=== PATIENT | male | born 1940 | race Caucasian/White ===

== ENCOUNTER → 2016-09-11 11:30 | Day surgery (SDC) | payer MEDICARE ==
[~2016-09-11 11:30] MED LIST: Buffered Lidocaine 1% SYRIN* 3 ML/SYR SYRINGE INTRADERM ONE; Bupivacaine 0.5% W/EPI SDV* 30 ML VIAL ONE; Dexamethasone IV* 4 MG/ML 1 ML (4 MG) ONE; Famotidine IV* 10 MG/ML 2 ML (20 mg) IV ONE; Famotidine IV* 10 MG/ML 2 ML (20 mg) ONE; HYDROmorphone* 1 MG/ML 1 ML SYR IV PRN; KETAMINE HCL* 50 MG/ML 10 ML VIAL ONE; Ketorolac INJ* 30 MG/ML 1 ML VIAL ONE; Lidocaine 1% INJ* 10 MG/ML 30 ML SDV ONE; Lidocaine 2% PF* 5 ML VIAL ONE; Metoclopramide TAB* 10 MG ONE; Metoclopramide TAB* 10 MG PO ONE; Midazolam* 1 MG/ML 5 ML VIAL (5 MG) ONE; Ondansetron INJ* 2 MG/ML VIAL IV PRN; Ondansetron INJ* 2 MG/ML VIAL ONE; Propofol* 10 MG/ML 20 ML BTL IV PUSH ONE; ceFAZolin 2 GM PREMIX(*) 2 GM/50 ML BAG IVPB ONE; fentaNYL* 50 MCG/ML 2 ML VIAL (100 MCG VIAL) IV PRN; fentaNYL* 50 MCG/ML 2 ML VIAL (100 MCG VIAL) ONE; oxyCODONE/Acetamin 5/325 MG* TAB PO PRN
--- NOTE | 2016-09-11 17:07 | SURGPN ---
Brief Operative Note - Surgery Procedures: Procedures Pre-OP Diagnoses: Left inguinal hernia Post-op Diagnosis: same Procedure: open Left inguinal hernia repair with mesh Surgeon: Dev Asst: Marion Rojasthesia: Michelle Temple EBL: minimal IVF: 1400cc crystalloid Specimen: none Drains: none
[2016-09-11 18:41] VITALS: BP 137/77
== END | disposition home or self-care (01) ==
LOC: OR 11:30
PROVIDERS: ATTEND Surgery
DX: K40.90 Unilateral inguinal hernia, without obstruction or gangrene, not specified as recurrent (principal); Z87.891 Personal history of nicotine dependence; Z85.038 Personal history of other malignant neoplasm of large intestine
CPT/HCPCS: 93005; A9270-GY; C1781; J0690; J1100; J1885; J2001; J2250; J2405; J2704; J3010

== ENCOUNTER 2019-08-15 08:39 | Inpatient (IN) | payer MEDICARE ==
[2019-08-15] MEDS ORDERED: NS 0.9% 1000 ML** 1,000 ML IV ONE (09:03)
[2019-08-15] MEDS ORDERED: Ondansetron INJ* 2 MG/ML VIAL IV ONE (09:03)
--- NOTE | 2019-08-15 09:07 | ED ---
GI/ HPI - HPI Summary HPI Summary: 78 y/o male presented to [facility] for what he believes was food poisoning 10 days ago. Pt experienced N/V/D, chills, and bloating, but no fever. Pt later developed constipation. Last episode of vomiting was 9 days ago. Pt noted sticky stool this morning, his first BM in 5 days. 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 He notes his most recent colonoscopy was successful and showed no signs of cx. Pt does not drink alcohol or use cigarettes. Medications reviewed. Allergies noted. Home Medications Medication Instructions Recorded Confirmed Type NK [No Home Medications Reported] 03/27/12 09/11/16 History - History of Current Complaint Chief Complaint: EDAbdPain Time Seen by Provider: 08/15/19 08:49 Stated Complaint: CONSTIPATION PER PT Hx Obtained From: Patient Onset/Duration: Started Weeks Ago, Still Present Timing: Lasting Weeks Current Severity: Mild Pain Intensity: 2 Associated Signs and Symptoms: Positive: Nausea, Vomiting, Constipation, Diarrhea, Chills, Other: - sticky stool, bloating. Negative: Fever Aggravating Factor(s): Nothing Alleviating Factor(s): Nothing - Allergy/Home Medications Allergies/Adverse Reactions: Allergies Allergy/AdvReac Type Severity Reaction Status Date / Time No Known Allergies Allergy Verified 08/15/19 08:47 Home Medications: Home Medications NK [No Home Medications Reported] 03/27/12 [History Confirmed 09/11/16] PMH/Surg Hx/FS Hx/Imm Hx Musculoskeletal History: Reports: Hx Arthritis - bilat hands Sensory History: Reports: Hx Contacts or Glasses - for driving Denies: Hx Hearing Aid - has a hearing loss in left ear Opthamlomology History: Reports: Hx Contacts or Glasses - for driving - Cancer History Cancer Type, Location and Year: colol/rectal cancer - Surgical History Surgery Procedure, Year, and Place: surgery for colon/rectal ca 1994. Bladder removed, urostomy bag. colostomy bag Hx Anesthesia Reactions: No Infectious Disease History: No Infectious Disease History: Denies: History Other Infectious Disease, Traveled Outside the [place] in Last 30 Days - Family History Known Family History: Positive: Other - cancer Negative: Hypertension, Diabetes - Social History Alcohol Use: None Substance Use Type: Reports: None Smoking Status (MU): Light Every Day Tobacco Smoker Review of Systems Positive: Chills. Negative: Fever Positive: Vomiting, Diarrhea, Nausea, Other - constipation, bloating All Other Systems Reviewed And Are Negative: Yes Physical Exam - Summary Physical Exam Summary: Constitutional: Well-developed, Well-nourished, Alert. (-) Distressed Skin: Warm, Dry HENT: Normocephalic; Atraumatic Eyes: Conjunctiva normal Neck: Musculoskeletal ROM normal neck. (-) JVD, (-) Stridor, (-) Tracheal deviation Cardio: Rhythm regular, rate normal, Heart sounds normal; Intact distal pulses; Radial pulses are 2+ and symmetric. (-) Murmur Pulmonary/Chest wall: Effort normal. (-) Respiratory distress, (-) Wheezes, (-) Rales Abd: Soft, (-) tenderness, (-) Distension, (-) Guarding, (-) Rebound. Urostomy and ostomy bags present. Ostomy bag with no output. Musculoskeletal: (-) Edema, Good pulses bilaterally in radius, No calf tenderness, No venous cords, No pain with dorsiflexion of foot. Lymph: (-) Cervical adenopathy Neuro: Alert, Oriented x3 Psych: Mood and affect Normal Triage Information Reviewed: Yes Vital Signs On Initial Exam: Initial Vitals Temp Pulse Resp BP Pulse Ox 98.2 F 76 18 125/80 99 08/15/19 08:44 08/15/19 08:44 08/15/19 08:44 08/15/19 08:44 08/15/19 08:44 Vital Signs Reviewed: Yes Procedures - Sedation Patient Received Moderate/Deep Sedation with Procedure: No Diagnostics - Vital Signs Vital Signs Temp Pulse Resp BP Pulse Ox 08/15/19 08:44 98.2 F 76 18 125/80 99 - Laboratory Result Diagrams: 08/15/19 08:56 08/15/19 08:56 Lab Statement: Any lab studies that have been ordered have been reviewed, and results considered in the medical decision making process. - CT abd/pel CT Interpretation Completed By: Radiologist Summary of CT Findings: IMPRESSION: 1. CT findings are consistent with mid to distal small bowel obstruction with the proximal. loops of small bowel measuring up to 4.2 cm in diameter and exhibiting air-fluid levels. 2. In the right lower lobe there is a subpleural 2 mm nodule adjacent to the fissure which. is most likely a small lymph node but a metastatic focus is not completely excluded. considering the patient's history of malignancy. 3. In the posterior spleen there is a 6 mm hypoattenuating focus that is not further. characterized on this CT examination. This was not seen on the 2003 CT examination. On a. nonemergent basis, further characterization can be made with splenic ultrasound. 4. Additional chronic, degenerative and iatrogenic findings described in the body the. report unlikely to BE related to the patient's imminent clinical problems. This report was reviewed by the ED physician LINETTE Course/Dx - Course Course Of Treatment: Patient is here with decreased ostomy output and nausea over the past 5 days. Patient did have some ostomy output this morning for the first time in 5 days. Patient blood performed which was grossly unremarkable. Patient a CT scan which showed a small bowel traction. Surgery was called and will evaluate the patient tomorrow. He was admitted to the hospitalist service - Diagnoses Provider Diagnoses: Small bowel obstruction - Physician Notifications Time Discussed With Above Provider: 12:31 Instructed by Provider To: Other - Pt case was discussed with Dr. Méndez, who will consult in the morning. The hospitalist will admit. Recommend an NG tube if pt is vomiting. Discharge ED - Sign-Out/Discharge Documenting (check all that apply): Patient Departure - Discharge Plan Condition: Fair Disposition: ADMITTED TO [facility] - Billing Disposition and Condition Condition: FAIR Disposition: Admitted to [facility] - Attestation Statements Document Initiated by Ninoska: Yes Documenting Scribe: Kayode Naranjo Provider For Whom Ninoska is Documenting (Include Credential): Chas Salomon MD Scribe Attestation: Kayode Armas, scribed for Chas Salomon MD on 08/15/19 at 1859. Scribe Documentation Reviewed: Yes Provider Attestation: The documentation as recorded by the Kayode eisenberg accurately reflects the service I personally performed and the decisions made by me, Chas Salomon MD Status of Scribe Document: Viewed
[2019-08-15 09:26] LABS: ABS Lymphocytes 0.4 10^3/ul (1.0-4.8); ABS Monocytes 0.7 10^3/ul (0-0.8); ABS Neutrophils 7.2 10^3/ul (1.5-7.7); Eosinophil % 0.4 %; Hematocrit 47 % (42-52); Lymphocyte % 5.3 %; Mean Corpuscular HGB Conc 35 g/dL (31-36); Mean Corpuscular Hemoglobin 30 pg (27-31); Mean Corpuscular Volume 88 fL (80-94); Mean Platelet Volume 6.9 fL (7.4-10.4); Platelet Count 359 10^3/uL (150-450); Red Blood Count 5.27 10^6 /uL (4.18-5.48); Red Cell Distribution Width 13 % (10-15); White Blood Count 8.4 10^3/uL (3.5-10.8)
[2019-08-15 09:27] LABS: Albumin 4.7 g/dL (3.2-5.2); Albumin/Globulin Ratio 1.5 (1-3); BUN/Creatinine Ratio 12.9 (8-20); Calcium 9.4 mg/dL (8.6-10.3); EGFR African American 105.5 (>60); EGFR Non-African American 87.2 (>60); Globulin 3.2 g/dL (2-4); Potassium 4.3 mmol/L (3.5-5.0); Total Bilirubin 1.1 mg/dL (0.2-1.0); Total Protein 7.9 g/dL (6.4-8.9)
[2019-08-15] MEDS ORDERED: Iodixanol* (CONTRAST) 320 MG/ML 100 ML SDV IV ONE (10:08)
[2019-08-15] MEDS ORDERED: Morphine INJ* 2 MG/ML 1 ML SYRINGE (TWO MG - NEW SYRINGE VERSION) IV PRN (14:03)
[2019-08-15] MEDS ORDERED: Ondansetron INJ* 2 MG/ML VIAL IV PRN (14:03)
[2019-08-15] MEDS: NS 0.9% 1000 ML** 1,000 ML IV SCH (16:13)
--- NOTE | 2019-08-15 17:14 | HP ---
CC: Dr. Mccann * HISTORY AND PHYSICAL: DATE OF ADMISSION: 08/15/19 PRIMARY CARE PROVIDER: Dr. Mccann. CHIEF COMPLAINT: Abdominal pain and no colostomy output. HISTORY OF PRESENT ILLNESS: Mr. Xavier is a 78-year-old male who underwent extensive surgery in the s in the colorectal cancer. He underwent colectomy with removal of the rectum, bladder, prostate, and appendix. At that time, he had a colostomy and urostomy created. The patient has also had left and right inguinal hernia repairs. Generally, he had been doing quite well and in his usual state of health up until approximately 9 days ago. He then began to develop diffuse abdominal discomfort, but more localized around the colostomy stoma. Five days ago, he noted that there was no output into his colostomy. This morning, he notes that there was a small amount of gas and a very small amount of stool in the colostomy bag. Due to the persistent abdominal discomfort and no output into the colostomy, the patient presented to the emergency room for evaluation. He states that he has had intermittent nausea, but has not vomited. He notes the chills in the emergency room today and his states that he was chilled at home last evening. PAST MEDICAL HISTORY: Colorectal carcinoma. PAST SURGICAL HISTORY: 1. Tonsillectomy. 2. Left inguinal hernia repair. 3. Colostomy. 4. Urostomy. 5. Right inguinal hernia. 6. Colectomy. 7. Prostate and bladder removal. MEDICATIONS: None. ALLERGIES: No known drug allergies. FAMILY HISTORY: Mom at the age of 68. She had breast cancer as well as lymphoma. Dad at the age of 78 of prostate cancer. SOCIAL HISTORY: The patient is a former smoker of 2 packs per week for approximately 10 years, quitting in 2012. He does not drink alcohol any longer. 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 He is . He has 3 children. His is his healthcare proxy. REVIEW OF SYSTEMS: The patient denies any fevers, chills. His appetite has been poor for the last 9 days. No chest pain. No edema. No cough. No shortness of breath. He has nausea and abdominal discomfort as above. He has a urostomy that has been putting out the normal amount of urine daily. No stroke symptoms. No sudden changes in vision. No dysphagia. No joint pains, muscle pains out of the ordinary. No rashes. No anxiety or depression. PHYSICAL EXAMINATION GENERAL: The patient is a well-developed elderly male seen sitting up in the bed, in no acute distress. VITAL SIGNS: Blood pressure 125/80, pulse 76, respirations 18, temp 98.2, O2 sat 99% on room air. HEENT: Pupils are equal. Extraocular muscles are intact. Oropharynx is clear , moist. The patient has poor dentition. There is no submandibular, cervical, or supraclavicular adenopathy. PULMONARY: Lungs are clear to auscultation bilaterally. CARDIAC: Normal S1 and S2. Regular rate and rhythm. I do not appreciate any murmurs. There is no lower extremity edema. ABDOMEN: Bowel sounds are present. Abdomen is soft, nontender, nondistended. The patient's colostomy is on the left side of the abdomen. It has liquid brown stool as well as a small amount of soft brown stool at the stoma site. The urostomy is in the right lower quadrant and has copious amounts of yellow urine. MUSCULOSKELETAL: There is no cyanosis or clubbing of the digits. There is full active range of motion of all 4 extremities. NEURO: Cranial nerves II through XII are grossly intact. Sensation is intact to light touch throughout. Strength is 5/5 and symmetric to both in the upper and lower extremities bilaterally. PSYCH: The patient is alert. He is oriented x3. Affect appears appropriate. SKIN: Warm and dry. There are no rashes. LABORATORY DATA/DIAGNOSTIC STUDIES: WBC 8.4, hemoglobin 16.0, hematocrit 47, platelets 359. Sodium 130, potassium 4.3, chloride 93, CO2 of 28, BUN 11, creatinine 0.85, glucose 100, calcium 9.4. Bilirubin 1.1, AST 21, ALT 16, alk phos 87. Albumin 4.7, lipase is 26. CT abdomen and pelvis. CT findings are consistent with mid to distal small bowel obstruction with a proximal loop of small bowel measuring up to 4.2 cm in diameter and exhibiting air-fluid levels. In the right lower lobe, there is a subpleural 2 mm nodule adjacent to the fissure which is most likely small lymph node, but a metastatic focus is not completely excluded considering the patient' s history of malignancy. In the posterior spleen, there is a 6 mm hypoattenuating focus that is not further characterized on the CT examination. This was not seen on the 2003 CT examination. On a nonemergent basis, further characterization can be made with splenic ultrasound. ASSESSMENT AND PLAN: Mr. Xavier is a 78-year-old male with no significant past medical history except for colorectal cancer for which he underwent extensive surgery including radical proctocolectomy, prostatectomy, and cystectomy with creation of urostomy and colostomy, who now presents to the emergency room with complaints of abdominal pain and no colostomy output for 5 days and is found to have a small bowel obstruction. 1. Small bowel obstruction. The patient had not realized that his colostomy had put out any material since being in the emergency room. This is a substantial increase from what he noted earlier today. I suspect the patient may be self- resolving his small bowel obstruction. The patient has not had any vomiting. He has had intermittent nausea. He will have p.r.n. Zofran. I am holding off on placing an NG tube at this time. Repeat abdominal x-ray will be obtained tomorrow. If there is improvement in his bowel obstruction, he will be started on a clear liquid diet. 2. Mild hyponatremia. The patient's sodium is slightly low at 130. He has not been taking in much to eat or drink recently. This is likely secondary to mild volume depletion. He is receiving normal saline to remain hydrated. We will get followup basic metabolic panel tomorrow. 3. DVT prophylaxis. According to the Adult Thrombosis Prophylaxis Risk Factor Assessment Guide, the patient has a total risk factor score of 6 making him high risk. Lovenox 40 mg subcutaneous daily will be utilized as DVT prophylaxis. 4. Code status is full. TIME SPENT: 55 minutes was spent admitting this patient. [id number]/[facility] #: [id number] SONAL
[2019-08-15] MEDS: Enoxaparin(*) 40 MG/0.4 ML SYR SUBCUT SCH (20:35)
[2019-08-16 07:13] LABS: BUN/Creatinine Ratio 22.9 (8-20); Calcium 7.9 mg/dL (8.6-10.3); EGFR Non-African American 109.1 (>60)
--- NOTE | 2019-08-16 09:00 | PN ---
Subjective Date of Service: 08/16/19 Interval History: Pt is feeling well. He continued to have liquid stool out in his colostomy all night long. He did have an "explosion" overnight. He denies any abdominal pain. He would like to have something to drink. He is thirsty. Objective Active Medications: Enoxaparin Sodium (Lovenox(*)) 40 mg SUBCUT Q24H [facility] Last Admin: 08/15/19 20:35 Dose: 40 mg Sodium Chloride (Ns 0.9% 1000 Ml) 1,000 mls @ 75 mls/hr IV PER RATE [facility] Last Admin: 08/15/19 16:13 Dose: 75 mls/hr Morphine Sulfate (Morphine Inj (Syringe))*) 2 mg IV Q4H PRN PRN Reason: PAIN - SEVERE Ondansetron HCl (Zofran Inj*) 4 mg IV Q6H PRN PRN Reason: NAUSEA Vital Signs - 8 hr 08/16/19 08/16/19 08/16/19 03:15 08:00 08:05 Temperature 98.1 F 98.3 F Pulse Rate 90 75 Respiratory 20 16 16 Rate Blood Pressure 130/66 106/50 (mmHg) O2 Sat by Pulse 100 98 Oximetry Oxygen Devices in Use Now: None Appearance: Elderly male sitting up in bed, NAD Eyes: No Scleral Icterus Ears/Nose/Mouth/Throat: Mucous Membranes Moist Respiratory: Symmetrical Chest Expansion and Respiratory Effort, Clear to Auscultation Cardiovascular: NL Sounds; No Murmurs; No JVD, RRR, No Edema Abdominal: NL Sounds; No Tenderness; No Distention, - - ostomy empty currently but reportedly there was 300ml of liquid stool in the bag Extremities: No Clubbing, Cyanosis Skin: No Nodules or Sclerosis Neurological: Alert and Oriented x 3 Result Diagrams: 08/15/19 08:56 08/16/19 06:44 Assess/Plan/Problems-Billing Mr Xavier is a 78 yo M who has a h/o colorectal carcinoma s/p proctocolectomy, cystectomy and prostatectomy who presented to the ER with c/o abdominal pain and no colostomy output for 5 days and was admitted for treatment of an SBO. - Patient Problems (1) SBO (small bowel obstruction) Current Visit: Yes Status: Acute Code(s): K56.609 - UNSP INTESTNL OBST, UNSP TO PARTIAL VERSUS COMPLETE OBST SNOMED Code(s): 918553166 Comment: The patient's colostomy started working while he was in the ER. He has continued to have output overnight and this AM. Will hold off on surgical evaluation currently. Give clear liquids now. Await KUB results. He may be able to be advanced to regular food later today and then home. (2) DVT prophylaxis Current Visit: Yes Status: Acute Code(s): Z29.9 - ENCOUNTER FOR PROPHYLACTIC MEASURES, UNSPECIFIED SNOMED Code(s): 156573569 Comment: farshad (3) Full code status Current Visit: Yes Status: Acute Code(s): Z78.9 - OTHER SPECIFIED HEALTH STATUS SNOMED Code(s): 500611164
--- NOTE | 2019-08-16 19:15 | CONS ---
CC: Dr. Felicia Mccann * SURGICAL CONSULT NOTE: DATE OF CONSULT: 08/16/19 ATTENDING SURGEON: Dr. Pepe Douglass. CHIEF COMPLAINT: Abdominal pain, vomiting, and decreased colostomy output. HISTORY OF PRESENT ILLNESS: This is a 78-year-old male who is status post extensive abdominal surgery in 1994 (see below), who has a permanent end colostomy and urostomy (ileal conduit). Beginning Friday of last week, he felt unwell with initial nausea and vomiting and then subsequently some diarrhea via his colostomy. He felt this was possible related to food poisoning. Over the next few days, symptoms waxed and waned with notable decrease in output from his colostomy. He attributed this to constipation and has been mostly drinking fluids, though has been trying some solid food intermittently. He describes discomfort in the abdomen primarily in the left side above and adjacent to his colostomy. At peak, his rated his pain as 6/10. At present, he states it is down to 1/10 and this is without any pain medication. He has not had any prior similar symptoms. He did have a clear liquid tray this morning, which he consumed completely and without any untoward effects. He states that since he came in last evening he has had liquid output from the colostomy that he estimates to be 400 to 500 cc. PAST MEDICAL HISTORY: Colorectal cancer (status post colectomy with end colostomy). The surgery also included prostatectomy and cystectomy with creation of ileal conduit for urostomy. He has no other significant active or past medical problems. PAST SURGICAL HISTORY: Surgeries, in addition to above, include tonsillectomy and bilateral inguinal hernia repairs. CURRENT MEDICATIONS: None. DRUG ALLERGIES: None. FAMILY HISTORY: Not repeated here, see admission history and physical. SOCIAL HISTORY: Not repeated here, see admission history and physical. REVIEW OF SYSTEMS: As per his admission history and physical with the addition of GI: He did undergo colonoscopy approximately 1 year ago, I believe with Dr. Herron and he states that that was a normal study. PHYSICAL EXAM: He's afebrile, most recent blood pressure 116/60, pulse 66, respirations 18, room air saturation 97%. General: Well-nourished, somewhat thin, but otherwise well-appearing male, in no acute distress. Skin: Warm and dry. No suspicious rashes or lesions. HEENT: Pupils are equal, round, and reactive. EOMs intact. No conjunctival pallor or scleral icterus. Oropharynx : A number of missing teeth. Remaining teeth in fair to good repair. No intraoral lesions. His mucous membranes are dry. Neck: No lymphadenopathy, thyromegaly, or masses. Heart: Regular rate and rhythm. No murmur appreciated. Lungs: Clear to auscultation. No rales or wheezes, though decreased breath sounds at both basses. Abdomen: Flat. Not particularly distended. Left-sided colostomy with relatively empty bag at the present time. Right-sided urostomy with clear sadia-colored urine. Well-healed lower midline incision. Bowel sounds are present and relatively normal in character. Abdomen is soft with mild tenderness along the left side. No palpable masses or organomegaly. No palpable inguinal hernias. Back and Extremities: No spinous process or CVA tenderness. Extremities: No edema. Neurological: Grossly intact. DIAGNOSTIC STUDIES/LAB DATA: Pertinent laboratory: White blood cell count 8400 , hemoglobin 16. Initial sodium was 130 with repeat this morning of 132, potassium is normal at 4.0. His other chemistries are essentially normal. CT scan yesterday of the abdomen and pelvis was personally reviewed. This was with limited oral contrast as well as IV contrast. Scan showed proximal dilated small bowel measuring up to 4.2 cm with air-fluid levels. The colon was relatively decompressed. Today's plain film showed a dilated small bowel loop on the left side measuring up to 5.7 cm in diameter, felt to be consistent with worsening small bowel obstruction picture. IMPRESSION: Small bowel obstruction, likely resolving. PLAN: The case was discussed and images reviewed with Dr. Stewart, who felt that he would be permissible to continue clear liquids with expectation that this will continue to resolve especially as his exam is relatively benign despite the plain film findings from today. We will order another plain film for tomorrow and follow closely. His case will also be discussed with Dr. Douglass, who is covering on- call tonight. TERESO EVANS [id number]/[facility] #: [id number] [facility] HOSPITALAlycia
--- NOTE | 2019-08-16 20:07 | PN ---
Progress Note - Progress Note Date of Service: 08/16/19 Note: Patient seen and examined Care discussed with TERESO Temple Labs and CT reviewed PEX: Abd is soft and non-distended. LLLQ ostomy with thin brown fluid in bag along with some gas Very mild tenderness left abdomen, no guarding or rebound. No obvious parastomal hernia He is feeling better, tolerating clear liquids and having colostomy output. AXR today shows a single distended small bowel loop on the left. Continue present care Clear liquids AXR 08/17/19 Care discussed with patient.
[2019-08-16] MEDS: NS 0.9% 1000 ML** 1,000 ML IV SCH (21:31)
[2019-08-16] MEDS: Enoxaparin(*) 40 MG/0.4 ML SYR SUBCUT SCH (21:33)
[2019-08-17] MEDS: NS 0.9% 1000 ML** 1,000 ML IV SCH ×2 (10:13→23:07)
--- NOTE | 2019-08-17 15:33 | PN ---
Progress Note - Progress Note Date of Service: 08/17/19 SOAP: Subjective: NAD comfortable in bed tolerating clears, reports vomiting earlier this morning, also reports output from colostomy stoma [] Objective: Vital Signs Temp 98 F 08/17/19 10:11 Pulse 73 08/17/19 10:11 Resp 18 08/17/19 10:11 BP 113/51 08/17/19 10:11 Pulse Ox 97 08/17/19 10:11 Intake & Output 08/16/19 08/17/19 08/17/19 18:59 06:59 18:59 Intake Total 2610 1751 Output Total 700 800 Balance 1910 951 Intake: IV Fluids 1751 NS (0.9%) 1751 Oral 2610 0 Output: Urine 125 Urostomy 400 600 Liquid Stool 200 Colostomy 175 Other: # Bowel Movements 0 # Voids 0 PEX: GEN: NAD Chest:CTAB CVS: RRR Abd: soft, non tender, + BS's, ostomy with output, Stoma red and healthy, ileostomy with urine output no guarding Ext: calves soft, non tender [] Assessment: 78 yo male s/p Colectomy, prostatectomy, cystectomy, with end ostomy and ileal conduit with SBO. No ostomy output for several days prior to admit now with positive output, but did have episode of vomit early today prior to xray. [] Plan: Continue Conservative non operative management, IV Fluids, ambulate, clear liquids. If nausea returns, would place NG Tube to LWS For now, continue clears, repeat AXR in AM.
--- NOTE | 2019-08-17 16:48 | PN ---
Subjective Date of Service: 08/17/19 Interval History: Pt had further nausea and an episode of vomiting. NG tube placed at the recommendation of general surgery. He denies any pain but his family can tell he is uncomfortable with the NG tube in place. Objective Active Medications: Enoxaparin Sodium (Lovenox(*)) 40 mg SUBCUT Q24H [facility] Last Admin: 08/16/19 21:33 Dose: 40 mg Sodium Chloride (Ns 0.9% 1000 Ml) 1,000 mls @ 75 mls/hr IV PER RATE [facility] Last Admin: 08/17/19 10:13 Dose: 75 mls/hr Morphine Sulfate (Morphine Inj (Syringe))*) 2 mg IV Q4H PRN PRN Reason: PAIN - SEVERE Ondansetron HCl (Zofran Inj*) 4 mg IV Q6H PRN PRN Reason: NAUSEA Last Admin: 08/17/19 15:42 Dose: 4 mg Vital Signs - 8 hr 08/17/19 08/17/19 10:11 15:15 Temperature 98 F 99.1 F Pulse Rate 73 71 Respiratory 18 18 Rate Blood Pressure 113/51 116/71 (mmHg) O2 Sat by Pulse 97 100 Oximetry Oxygen Devices in Use Now: None Appearance: Elderly male sitting up in bed, NAD Eyes: No Scleral Icterus Ears/Nose/Mouth/Throat: Mucous Membranes Moist Respiratory: Symmetrical Chest Expansion and Respiratory Effort, Clear to Auscultation - anteriorly Cardiovascular: NL Sounds; No Murmurs; No JVD, RRR, No Edema Abdominal: NL Sounds; No Tenderness; No Distention, - - air noted in colostomy, no stool but he emptied liquid stool out just a little bit ago Extremities: No Clubbing, Cyanosis Skin: No Nodules or Sclerosis Neurological: Alert and Oriented x 3 - Nutrition: Malnutrition Diagnosis/Plan Malnutrition Assessment by Registered Dietitian: Malnutrition Assessment Clinical Characteristics Acute,Severe Malnutrition Assessment: Muscle Wasting - Temporal (moderate) Criteria Inadequate Oral Intake - Pt reports poor intake x2 wks w/ GI s/sx; currently on clear liquid diet - anticipate meeting <50% nutrient needs > 5 days (severe) Unintentional Weight Loss - Pt reports unintentional wt loss, though could not provide more recent wt; current wt 118lb, UBW 140lb x9 mos ago - 15.7% loss x9 mos (severe; anticipate possible chronic issue) Malnutrition Assessment: Nutritional Supplementals/Nourishments - Will Interventions send Ensure Clear (240kcal, 8g prot/serv) w/ B, L, and D daily to optimize kcal/prot intake; will monitor continued acceptance GI Related - Recommend giving antidiarrheal as indicated; will monitor GI s/sx for ability to advance diet and impact on intake Education - Provided pt and family w/ colostomy diet education, highlighting a balance of insoluble/soluble fiber intake for consistent, appropriate ostomy output, 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 and low to no vegetable/insoluble fiber intake; will remain available to answer questions regarding diet as able Malnutrition Assessment: Goals 1) Recommend advancing diet as able 2) Pt will tolerate diet advancement w/o exac/ development of GI s/sx 3) Adequate po intake to replete lean body mass and support hydration status 4) Improve fluid/electrolyte balance w/ adequate po intake and repletion PRN 5) Maintain ostomy output w/ adequate po intake and bowel meds w/o exac of diarrhea/return of constipation 6) Questions regarding diet will be answered prior to d/c Result Diagrams: 08/15/19 08:56 08/16/19 06:44 Assess/Plan/Problems-Billing Mr Xavier is a 78 yo M who has a h/o colorectal carcinoma s/p proctocolectomy, cystectomy and prostatectomy who presented to the ER with c/o abdominal pain and no colostomy output for 5 days and was admitted for treatment of an SBO. - Patient Problems (1) SBO (small bowel obstruction) Current Visit: Yes Status: Acute Code(s): K56.609 - UNSP INTESTNL OBST, UNSP TO PARTIAL VERSUS COMPLETE OBST SNOMED Code(s): 123447105 Comment: Unfortunately the patient's Xray yesterday showed worsened obstruction despite his ostomy putting out stool. He was seen by general surgery , given clear liquids. Today he has vomited and had more nausea. General surgery has recommended NG tube placement (now in and awaiting for xray to confirm placement). Repeat Xray tomorrow. (2) DVT prophylaxis Current Visit: Yes Status: Acute Code(s): Z29.9 - ENCOUNTER FOR PROPHYLACTIC MEASURES, UNSPECIFIED SNOMED Code(s): 440316657 Comment: [email or web address] (3) Full code status Current Visit: Yes Status: Acute Code(s): Z78.9 - OTHER SPECIFIED HEALTH STATUS SNOMED Code(s): 665010454
[2019-08-17] MEDS: Phenol 1.4% Spray* 177 ML BTL MT PRN (20:26)
[2019-08-17] MEDS: Enoxaparin(*) 40 MG/0.4 ML SYR SUBCUT SCH (20:27)
[2019-08-18 06:01] LABS: Hematocrit 37 % (42-52); Hemoglobin 12.3 g/dL (14.0-18.0); Mean Corpuscular HGB Conc 33 g/dL (31-36); Mean Corpuscular Hemoglobin 30 pg (27-31); Mean Corpuscular Volume 89 fL (80-94); Mean Platelet Volume 6.8 fL (7.4-10.4); Platelet Count 236 10^3/uL (150-450); Red Blood Count 4.14 10^6 /uL (4.18-5.48); Red Cell Distribution Width 13 % (10-15); White Blood Count 3.9 10^3/uL (3.5-10.8)
[2019-08-18 06:17] LABS: BUN/Creatinine Ratio 8.8 (8-20); Calcium 7.7 mg/dL (8.6-10.3); EGFR African American 167.3 (>60); EGFR Non-African American 138.3 (>60); Potassium 3.2 mmol/L (3.5-5.0)
--- NOTE | 2019-08-18 08:33 | PN ---
Subjective Date of Service: 08/18/19 Interval History: Pt is feeling well. He states that last night around 2014 when the NG tube was hooked up to suction his nausea went away. Additionally he had 200ml of liquid stool out of his ostomy at that time. He had another 125ml of liquid stool out this AM. Objective Active Medications: Enoxaparin Sodium (Lovenox(*)) 40 mg SUBCUT Q24H [facility] Last Admin: 08/17/19 20:27 Dose: 40 mg Sodium Chloride (Ns 0.9% 1000 Ml) 1,000 mls @ 75 mls/hr IV PER RATE [facility] Last Admin: 08/17/19 23:07 Dose: 75 mls/hr Morphine Sulfate (Morphine Inj (Syringe))*) 2 mg IV Q4H PRN PRN Reason: PAIN - SEVERE Ondansetron HCl (Zofran Inj*) 4 mg IV Q6H PRN PRN Reason: NAUSEA Last Admin: 08/17/19 15:42 Dose: 4 mg Phenol/Menthol (Chloroseptic Throat [place]*) 2 spray MT Q4H PRN PRN Reason: SORE THROAT Last Admin: 08/17/19 20:26 Dose: 2 spray Vital Signs - 8 hr 08/18/19 08/18/19 02:56 03:55 Temperature 98.2 F Pulse Rate 63 Respiratory 18 18 Rate Blood Pressure 114/60 (mmHg) O2 Sat by Pulse 99 Oximetry Oxygen Devices in Use Now: None Appearance: Elderly male sitting up in bed, NAD Eyes: No Scleral Icterus Ears/Nose/Mouth/Throat: Mucous Membranes Moist Respiratory: Symmetrical Chest Expansion and Respiratory Effort, Clear to Auscultation Cardiovascular: NL Sounds; No Murmurs; No JVD, RRR, No Edema Abdominal: NL Sounds; No Tenderness; No Distention, - - NG in place, only about 200ml out from the NG Extremities: No Clubbing, Cyanosis Skin: No Nodules or Sclerosis Neurological: Alert and Oriented x 3 - Nutrition: Malnutrition Diagnosis/Plan Malnutrition Assessment by Registered Dietitian: Malnutrition Assessment Clinical Characteristics Acute,Severe Malnutrition Assessment: Muscle Wasting - Temporal (moderate) Criteria Inadequate Oral Intake - Pt reports poor intake x2 wks w/ GI s/sx; currently on clear liquid diet - anticipate meeting <50% nutrient needs > 5 days (severe) Unintentional Weight Loss - Pt reports unintentional wt loss, though could not provide more recent wt; current wt 118lb, UBW 140lb x9 mos ago - 15.7% loss x9 mos (severe; anticipate possible chronic issue) Malnutrition Assessment: Nutritional Supplementals/Nourishments - Will Interventions send Ensure Clear (240kcal, 8g prot/serv) w/ B, L, and D daily to optimize kcal/prot intake; will monitor continued acceptance GI Related - Recommend giving antidiarrheal as indicated; will monitor GI s/sx for ability to advance diet and impact on intake Education - Provided pt and family w/ colostomy diet education, highlighting a balance of insoluble/soluble fiber intake for consistent, appropriate ostomy output, 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 and low to no vegetable/insoluble fiber intake; will remain available to answer questions regarding diet as able Malnutrition Assessment: Goals 1) Recommend advancing diet as able 2) Pt will tolerate diet advancement w/o exac/ development of GI s/sx 3) Adequate po intake to replete lean body mass and support hydration status 4) Improve fluid/electrolyte balance w/ adequate po intake and repletion PRN 5) Maintain ostomy output w/ adequate po intake and bowel meds w/o exac of diarrhea/return of constipation 6) Questions regarding diet will be answered prior to d/c Result Diagrams: 08/18/19 05:42 08/18/19 05:42 Assess/Plan/Problems-Billing Mr Xavier is a 78 yo M who has a h/o colorectal carcinoma s/p proctocolectomy, cystectomy and prostatectomy who presented to the ER with c/o abdominal pain and no colostomy output for 5 days and was admitted for treatment of an SBO. - Patient Problems (1) SBO (small bowel obstruction) Current Visit: Yes Status: Acute Code(s): K56.609 - UNSP INTESTNL OBST, UNSP TO PARTIAL VERSUS COMPLETE OBST SNOMED Code(s): 634384389 Comment: Repeat Xray is pending for this AM. He had only about 200ml out of the NG but feels no nausea now. Continue conservative management. Will await further recommendations from general surgery. (2) DVT prophylaxis Current Visit: Yes Status: Acute Code(s): Z29.9 - ENCOUNTER FOR PROPHYLACTIC MEASURES, UNSPECIFIED SNOMED Code(s): 675700058 Comment: [email or web address] (3) Full code status Current Visit: Yes Status: Acute Code(s): Z78.9 - OTHER SPECIFIED HEALTH STATUS SNOMED Code(s): 119212633
[2019-08-18] MEDS: Phenol 1.4% Spray* 177 ML BTL MT PRN (10:41)
--- NOTE | 2019-08-18 11:51 | PN ---
Progress Note - Progress Note Date of Service: 08/18/19 SOAP: Subjective: Feels much better today No abdominal pain Had some fluid and larger amounts of gas out colostomy Minimal NGT output Objective: Temp Pulse Resp BP Pulse Ox 98.4 F 83 16 121/63 97 08/18/19 07:15 08/18/19 07:15 08/18/19 07:15 08/18/19 07:15 08/18/19 07:15 Intake & Output 08/16/19 08/17/19 08/18/19 08/19/19 06:59 06:59 06:59 06:59 Intake Total 1000 4361 2156 Output Total 1900 1500 2180 Balance -900 2861 -24 Weight 118 lb 3.2 oz Intake: IV Fluids 1000 1751 1456 NS (0.9%) 1751 1456 Oral 0 2610 700 Output: NG Tube Drainage Amount 200 Urine 125 560 Urostomy 550 1000 1100 Liquid Stool 550 200 320 Colostomy 800 175 Other: Date of Last Bowel 08/15/19 Movement # Bowel Movements 1 0 0 Estimated Stool Amount Medium # Voids 0 0 PEX: Comfortable Abd: Soft and non-distended. Bowel sounds are present and normoactive. No tenderness. Ostomy pink, no air in bag. AXR reviewed 3/ Assessment: SBO-appears improved--clinically better and minimal NGT output Plan: D/C NGT Start clears Observe
[2019-08-18] MEDS: NS 0.9% 1000 ML** 1,000 ML IV SCH (13:02)
[2019-08-18] MEDS ORDERED: Potassium Chlor TAB* 20 MEQ TAB.ER PO ONE (14:07)
[2019-08-18] MEDS: Enoxaparin(*) 40 MG/0.4 ML SYR SUBCUT SCH (21:04)
[2019-08-19] MEDS: NS 0.9% 1000 ML** 1,000 ML IV SCH (02:53)
--- NOTE | 2019-08-19 10:30 | PN ---
Subjective Date of Service: 08/19/19 Interval History: Pt stated that this AM he had approx 800 ml of liquid stool and gas in colostomy bag and good urine output. He c/l no abd pain and no nausea, feels hungry Objective Active Medications: Enoxaparin Sodium (Lovenox(*)) 40 mg SUBCUT Q24H [facility] Last Admin: 08/18/19 21:04 Dose: 40 mg Sodium Chloride (Ns 0.9% 1000 Ml) 1,000 mls @ 75 mls/hr IV PER RATE [facility] Last Admin: 08/19/19 02:53 Dose: 75 mls/hr Morphine Sulfate (Morphine Inj (Syringe))*) 2 mg IV Q4H PRN PRN Reason: PAIN - SEVERE Ondansetron HCl (Zofran Inj*) 4 mg IV Q6H PRN PRN Reason: NAUSEA Last Admin: 08/17/19 15:42 Dose: 4 mg Phenol/Menthol (Chloroseptic Throat [place]*) 2 spray MT Q4H PRN PRN Reason: SORE THROAT Last Admin: 08/18/19 10:41 Dose: 2 spray Vital Signs - 8 hr 08/19/19 03:50 Temperature 97.9 F Pulse Rate 63 Respiratory 18 Rate Blood Pressure 114/58 (mmHg) O2 Sat by Pulse 97 Oximetry Oxygen Devices in Use Now: None Appearance: 78 yo M in nAD, AAOx3 Eyes: No Scleral Icterus, PERRLA Ears/Nose/Mouth/Throat: NL Teeth, Lips, Gums, Mucous Membranes Moist Neck: NL Appearance and Movements; NL JVP, Trachea Midline Respiratory: Symmetrical Chest Expansion and Respiratory Effort Abdominal: NL Sounds; No Tenderness; No Distention, No Hepatosplenomegaly, - - colostomy in place, pink, urostomy in place Lymphatic: No Cervical Adenopathy Extremities: No Edema Skin: No Rash or Ulcers Neurological: Alert and Oriented x 3, NL Muscle Strength and Tone - Nutrition: Malnutrition Diagnosis/Plan Malnutrition Assessment by Registered Dietitian: Malnutrition Assessment Clinical Characteristics Acute,Severe Malnutrition Assessment: Muscle Wasting - Temporal (moderate) Criteria Inadequate Oral Intake - Pt reports poor intake x2 wks w/ GI s/sx; currently on clear liquid diet - anticipate meeting <50% nutrient needs > 5 days (severe) Unintentional Weight Loss - Pt reports unintentional wt loss, though could not provide more recent wt; current wt 118lb, UBW 140lb x9 mos ago - 15.7% loss x9 mos (severe; anticipate possible chronic issue) Malnutrition Assessment: Nutritional Supplementals/Nourishments - Will Interventions send Ensure Clear (240kcal, 8g prot/serv) w/ B, L, and D daily to optimize kcal/prot intake; will monitor continued acceptance GI Related - Recommend giving antidiarrheal as indicated; will monitor GI s/sx for ability to advance diet and impact on intake Education - Provided pt and family w/ colostomy diet education, highlighting a balance of insoluble/soluble fiber intake for consistent, appropriate ostomy output, 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 and low to no vegetable/insoluble fiber intake; will remain available to answer questions regarding diet as able Malnutrition Assessment: Goals 1) Recommend advancing diet as able 2) Pt will tolerate diet advancement w/o exac/ development of GI s/sx 3) Adequate po intake to replete lean body mass and support hydration status 4) Improve fluid/electrolyte balance w/ adequate po intake and repletion PRN 5) Maintain ostomy output w/ adequate po intake and bowel meds w/o exac of diarrhea/return of constipation 6) Questions regarding diet will be answered prior to d/c Result Diagrams: 08/18/19 05:42 08/18/19 05:42 Assess/Plan/Problems-Billing Mr Xavier is a 78 yo M who has a h/o colorectal carcinoma s/p proctocolectomy, cystectomy and prostatectomy who presented to the ER with c/o abdominal pain and no colostomy output for 5 days and was admitted for treatment of an SBO. - Patient Problems (1) SBO (small bowel obstruction) Comment: Pt feels tran better. Advance diet to soft. Likley d/c later on today. Await further recommendations from general surgery. (2) DVT prophylaxis Comment: [email or web address] (3) Full code status Status and Disposition: inpatient
--- NOTE | 2019-08-19 12:04 | PN ---
Progress Note - Progress Note Date of Service: 08/19/19 SOAP: Subjective: NAD Reports increased output from stome both gas and stool tolerated sips of clears since NG out [] Objective: Vital Signs Temp 97.6 F 08/19/19 11:15 Pulse 58 08/19/19 11:15 Resp 18 08/19/19 11:15 BP 137/68 08/19/19 11:15 Pulse Ox 97 08/19/19 11:15 Intake & Output 08/18/19 08/19/19 08/19/19 18:59 06:59 18:59 Intake Total 0 877 Output Total 150 1450 Balance -150 -573 Intake: IV Fluids 877 NS (0.9%) 877 Oral 0 0 Output: Jack 650 Colostomy 150 800 Other: Estimated Stool Amount Small # Voids 0 PEX Gen: NAD Chest: CTAB CVS: Han rate regular rhythm Abd: soft, non tender, Stoma pink/healthy Ext: calves soft [] Assessment: 78 yo male with end ostomy and ileostomy with resolving SBO, responding well to conservative management [] Plan: advance diet as tolerated, no surgical issues. Above D/W Dr Douglass and Dr Martin []
[2019-08-19 15:39] VITALS: BP 125/71
--- NOTE | 2019-08-20 03:48 | DS ---
CC: Dr. Felicia Mccann; Dr. Douglass from Surgery* DISCHARGE SUMMARY: DATE OF ADMISSION: 08/15/19 DATE OF DISCHARGE: 08/19/19 PRIMARY CARE PROVIDER: Dr. Felicia Mccann DISPOSITION: Discharged home. CONDITION ON DISCHARGE: Stable. DISCHARGE DIAGNOSIS: Small-bowel obstruction. SECONDARY DIAGNOSES: 1. History of sigmoid colon resection. 2. Prostate and bladder removal as well as creation of colostomy and urostomy due to colorectal carcinoma in 1995. 3. Status post tonsillectomy. 4. Left inguinal hernia repair. 5. Right inguinal hernia repair. MEDICATIONS AT DISCHARGE: None. DIET: At discharge, bland food for 2 days then advance to regular as tolerated. PHYSICAL EXAMINATION AT DISCHARGE: Please see daily progress note. HOSPITALIZATION COURSE: Jacob Xavier is a 78-year-old male with a history of extensive abdominal surgery for his colon cancer in who presented with complaints of abdominal pain, no stoma output on 08/15/19. The patient was admitted to the hospital. Dr. Douglass saw the patient for surgical consultation. The patient was treated conservatively with NG tube. NG tube was removed the day prior to discharge. The patient was tolerating diet without any problems by the time of discharge with good colostomy output. He is going to be discharged home with recommendation to follow up with his primary care provider in 4 to 7 days. Please note that this is a short summary of the patient 's hospital stay. Please refer to further medical records for details. TIME SPENT: Approximately 35 minutes was spent on the patient's discharge. [id number]/[facility] #: [id number] MTDD
== END 2019-08-19 18:15 | disposition home or self-care (01) | DRG 389 ==
LOC: ED 08:39 → MED 14:03 → OBSVTOIN 08-16 18:12
PROVIDERS: ADMIT Hospitalist; ATTEND Internal Medicine
PROC: 0D9670Z Drainage of Stomach with Drainage Device, Via Natural or Artificial Opening (ICD-10-PCS; principal; 2019-08-16)
DX: K56.609 Unspecified intestinal obstruction, unspecified as to partial versus complete obstruction (principal); E87.1 Hypo-osmolality and hyponatremia; E86.9 Volume depletion, unspecified; R19.7 Diarrhea, unspecified; I10 Essential (primary) hypertension; Z90.6 Acquired absence of other parts of urinary tract; Z93.3 Colostomy status; Z93.6 Other artificial openings of urinary tract status; Z85.038 Personal history of other malignant neoplasm of large intestine; Z80.3 Family history of malignant neoplasm of breast; Z80.7 Family history of other malignant neoplasms of lymphoid, hematopoietic and related tissues; Z80.42 Family history of malignant neoplasm of prostate; Z87.891 Personal history of nicotine dependence
CPT/HCPCS: 36415; 71045; 74018; 74019; 74177; 80048; 80053; 83690; 85025; 85027; 96361; 96374; 99283; A9270-GY; G0378; J1650; J2405; Q9967

== ENCOUNTER 2019-08-23 08:58 | Inpatient (IN) | payer MEDICARE ==
[2019-08-23] MEDS ORDERED: NS 0.9% 1000 ML** 1,000 ML IV ONE ×2 (09:30→11:12)
[2019-08-23] MEDS ORDERED: Ondansetron INJ* 2 MG/ML VIAL IV ONE (09:41)
[2019-08-23 09:47] LABS: Hematocrit 40 % (42-52); Hemoglobin 13.8 g/dL (14.0-18.0); Mean Corpuscular HGB Conc 35 g/dL (31-36); Mean Corpuscular Hemoglobin 30 pg (27-31); Mean Corpuscular Volume 87 fL (80-94); Mean Platelet Volume 6.7 fL (7.4-10.4); Platelet Count 333 10^3/uL (150-450); Red Blood Count 4.55 10^6 /uL (4.18-5.48); Red Cell Distribution Width 13 % (10-15); White Blood Count 12.8 10^3/uL (3.5-10.8)
[2019-08-23 10:15] LABS: ALT 16 U/L (7-52); AST 16 U/L (13-39); Albumin 3.9 g/dL (3.2-5.2); Albumin/Globulin Ratio 1.5 (1-3); Alkaline Phosphatase 75 U/L (34-104); Anion Gap 9 mmol/L (2-11); BUN/Creatinine Ratio 15.4 (8-20); Blood Urea Nitrogen 16 mg/dL (6-24); C Reactive Protein 25.72 mg/L (<8.01); CO2 Carbon Dioxide 29 mmol/L (22-32); Calcium 8.4 mg/dL (8.6-10.3); Chloride 93 mmol/L (101-111); EGFR African American 83.6 (>60); EGFR Non-African American 69.1 (>60); Globulin 2.6 g/dL (2-4); Glucose 113 mg/dL (70-100); Magnesium 1.4 mg/dL (1.9-2.7); Potassium 4.1 mmol/L (3.5-5.0); Sodium 131 mmol/L (135-145); Total Protein 6.5 g/dL (6.4-8.9)
[2019-08-23] MEDS ORDERED: Magnesium Sulf 4 GM/100 ML IV* 4,000 MG/100 ML BAG IVPB ONE (10:25)
[2019-08-23] MEDS ORDERED: Magnesium Sulfate 2 GM IV* 2 GM/50 ML BAG IVPB ONE (10:26)
[2019-08-23 10:41] LABS: ABS Lymphocytes 0.3 10^3/ul (1.0-4.8); ABS Monocytes 0.8 10^3/ul (0-0.8); ABS Neutrophils 11.6 10^3/ul (1.5-7.7); Eosinophil % 0.1 %
--- NOTE | 2019-08-23 11:32 | ED ---
Nausea/Vomiting/Diarrhea HPI - HPI Summary HPI Summary: This patient is a 78-year-old male who presents to the ED 3 days s/[place] [facility] [place] of [place]. Medical management was preferred and bowel rest with some relief. Patient was discharged after advancement of diet. Patient felt "OK" friday night and friday morning, although had some 1/10 discomfort to the LLQ (over colostomy) as well as mild nausea. No vomiting. Yesterday, patient developed n/v and has been unable to tolerate anything PO. Denies nausea on arrival. Pt denies fevers, sweats, chills. Per patient, has had colostomy output of 75ml this AM and 100ml last evening despite inability to tolerate PO. Sxs are similar to SBO feeling from 1.5 weeks ago. - History of Current Complaint Chief Complaint: EDNauseaVomitDiarrh Stated Complaint: CAN'T EAT OR DRINK PER PT Time Seen by Provider: 08/23/19 09:11 Hx Obtained From: Patient Onset/Duration: Sudden Onset Timing: Constant Severity Initially: Mild Severity Currently: Mild Pain Intensity: 1 Pain Scale Used: 0-10 Numeric Aggravating Factor(s): Nothing Alleviating Factor(s): Nothing Vomiting Frequency: At Meal Time Nausea/Vomiting Duration: 12-24 hours Vomiting Characteristics: Nonbilious - Risk Factors Influenza Risk Factors: Negative Surgical Obstruction Risk Factor(s): Prior Abdominal Surgery - Allergies/Home Medications Allergies/Adverse Reactions: Allergies Allergy/AdvReac Type Severity Reaction Status Date / Time No Known Allergies Allergy Verified 08/23/19 09:10 Home Medications: Home Medications NK [No Home Medications Reported] 03/27/12 [History Confirmed 08/23/19] PMH/Surg Hx/FS Hx/Imm Hx Previously Healthy: Yes Endocrine/Hematology History: Reports: Hx Diabetes Cardiovascular History: Denies: Hx Hypertension GI History: Reports: Other GI Disorders - SBO 08/2019. History: Denies: Hx Renal Disease Musculoskeletal History: Reports: Hx Arthritis - bilat hands Sensory History: Reports: Hx Contacts or Glasses - for driving, Hx Hearing Problem Denies: Hx Hearing Aid - has a hearing loss in left ear Opthamlomology History: Reports: Hx Contacts or Glasses - for driving - Cancer History Cancer Type, Location and Year: colol/rectal cancer - Surgical History Surgery Procedure, Year, and Place: surgery for colon/rectal ca 1994. Bladder removed, urostomy bag. colostomy bag Hx Anesthesia Reactions: No - Immunization History Hx Pertussis Vaccination: No Immunizations Up to Date: Yes Infectious Disease History: No Infectious Disease History: Denies: History Other Infectious Disease, Traveled Outside the [place] in Last 30 Days - Family History Known Family History: Positive: Other - cancer Negative: Hypertension, Diabetes - Social History Occupation: Unemployed Lives: With Family Alcohol Use: None Hx Substance Use: No Substance Use Type: Reports: None Hx Tobacco Use: Yes Smoking Status (MU): Light Every Day Tobacco Smoker Review of Systems Negative: Fever, Chills, Fatigue, Skin Diaphoresis Negative: Palpitations, Chest Pain Negative: Shortness Of Breath, Cough Positive: Abdominal Pain, Vomiting, Nausea. Negative: Diarrhea Genitourinary: Negative Positive: no symptoms reported, see HPI Negative: Arthralgia, Myalgia All Other Systems Reviewed And Are Negative: Yes Physical Exam Triage Information Reviewed: Yes Vital Signs On Initial Exam: Initial Vitals Temp Pulse Resp BP Pulse Ox 99.6 F 105 16 96/56 94 08/23/19 09:05 08/23/19 09:05 08/23/19 09:05 08/23/19 09:05 08/23/19 09:05 Vital Signs Reviewed: Yes Appearance: Positive: Well-Appearing, Well-Nourished Skin: Positive: Warm, Skin Color Reflects Adequate Perfusion Head/Face: Positive: Normal Head/Face Inspection Eyes: Positive: EOMI, ADRIA, Conjunctiva Clear Neck: Positive: Supple, Nontender, No Lymphadenopathy Respiratory/Lung Sounds: Positive: Clear to Auscultation, Breath Sounds Present Cardiovascular: Positive: RRR, Pulses are Symmetrical in both Upper and Lower Extremities Abdomen Description: Positive: Other: - mild tenderness Bowel Sounds: Positive: Hypoactive Musculoskeletal: Positive: Normal, Strength/ROM Intact Neurological: Positive: Alert, Oriented to Person Place, Time Psychiatric: Positive: Affect/Mood Appropriate AVPU Assessment: Alert Procedures - Sedation Patient Received Moderate/Deep Sedation with Procedure: No Diagnostics - Vital Signs Vital Signs Temp Pulse Resp BP Pulse Ox 08/23/19 09:36 19 90/54 08/23/19 09:35 13 08/23/19 09:05 99.6 F 105 16 96/56 94 - Laboratory Lab Results: Lab Results 0308/23/19 08/23/19 Range/Units 09:39 09:39 09:39 WBC 12.8 H (3.5-10.8) 10^3/uL RBC 4.55 (4.18-5.48) 10^6 /uL Hgb 13.8 L (14.0-18.0) g/dL Hct 40 L (42-52) % MCV 87 (80-94) fL MCH 30 (27-31) pg MCHC 35 (31-36) g/dL RDW 13 (10-15) % Plt Count 333 (150-450) 10^3/uL MPV 6.7 L (7.4-10.4) fL Neut % (Auto) 90.9 % Lymph % (Auto) 2.0 % [place] % (Auto) 6.6 % Eos % (Auto) 0.1 % Baso % (Auto) 0.4 % Absolute Neuts (auto) 11.6 H (1.5-7.7) 10^3/ul Absolute Lymphs (auto) 0.3 L (1.0-4.8) 10^3/ul Absolute Monos (auto) 0.8 (0-0.8) 10^3/ul Absolute Eos (auto) 0.0 (0-0.6) 10^3/ul Absolute Basos (auto) 0.0 (0-0.2) 10^3/ul Absolute Nucleated RBC 0.0 10^3/ul Nucleated RBC % 0.0 Sodium 131 L (135-145) mmol/L Potassium 4.1 (3.5-5.0) mmol/L Chloride 93 L (101-111) mmol/L Carbon Dioxide 29 (22-32) mmol/L Anion Gap 9 (2-11) mmol/L BUN 16 (6-24) mg/dL Creatinine 1.04 (0.67-1.17) mg/dL Est GFR ( Amer) 83.6 (>60) Est GFR (Non-Af Amer) 69.1 (>60) BUN/Creatinine Ratio 15.4 (8-20) Glucose 113 H (70-100) mg/dL Lactic Acid 1.4 (0.5-2.0) mmol/L Calcium 8.4 L (8.6-10.3) mg/dL Magnesium 1.4 L (1.9-2.7) mg/dL Total Bilirubin 1.00 (0.2-1.0) mg/dL AST 16 (13-39) U/L ALT 16 (7-52) U/L Alkaline Phosphatase 75 (34-104) U/L C-Reactive Protein 25.72 H (<8.01) mg/L Total Protein 6.5 (6.4-8.9) g/dL Albumin 3.9 (3.2-5.2) g/dL Globulin 2.6 (2-4) g/dL Albumin/Globulin Ratio 1.5 (1-3) Lipase < 10 L (11.0-82.0) U/L Result Diagrams: 08/23/19 09:39 08/23/19 09:39 Lab Statement: Any lab studies that have been ordered have been reviewed, and results considered in the medical decision making process. Naus/Vom/Diarrhea Course/Dx - Course Course Of Treatment: This patient is evaluated for possible SBO. Recently discharged from hospital. States over the course of at least 24 hours, has not been able to tolerate PO. They opted for medical management and he had assumed the SBO resolved prior to his discharge. He returns today for concern for worsening symptoms. He endorses mild nausea at this time. He was given Zofran IV as well as 2 L fluids. He was also given magnesium 2 mg IV. Labs obtained which show a slightly elevated white count and CRP with a magnesium of 1.4. Xray positive for SBO. Discussed case with surgery, Dr. Arana, who agrees to see the patient in the ED and consult. Discussed case with Dr. Lynn patel, hospitalist. Patient will be admitted to their service. Pt comfortable at this time denying any pain or nausea. Will defer NG tube and CT scan at this time. - Differential Dx/Diagnosis Provider Diagnosis: SBO (small bowel obstruction) - Physician Notification/Consults Discussed Case/Management/Disposition Of Patient With: Leny Arana Instructed by Provider To: Admit As Inpatient Discharge ED - Sign-Out/Discharge Documenting (check all that apply): Patient Departure - Discharge Plan Condition: Fair Disposition: ADMITTED TO [facility] Referrals: Felicia Mccann MD [Primary Care Provider] - - Billing Disposition and Condition Condition: FAIR Disposition: Admitted to [facility]
[2019-08-23] MEDS ORDERED: Ondansetron INJ* 2 MG/ML VIAL IV PRN (12:58)
[2019-08-23] MEDS ORDERED: D5NS 0.9% 1000 ML BAG* 1,000 ML IV SCH (13:00)
--- NOTE | 2019-08-23 13:05 | CONSULT ---
Consult Consult: DATE OF CONSULTATION: 08/23/19 REASON FOR CONSULTATION: SBO HPI: Jacob Xavier is a 78-year-old with a history of colorectal cancer status post colectomy, cystectomy, prostatectomy, and appendectomy with colostomy and urostomy about 25 years ago who presents to the ER with nausea and vomiting. The patient was admitted last week for similar symptoms. He was diagnosed with small bowel obstruction and conservatively managed. he was discharged on . He felt well for about 2 days. Yesterday he started to have nausea and vomiting again. He reports abdominal pain around the colostomy. He had some chills but denies fevers. He did have 75 mL of output from the colostomy this morning, and he has had colostomy output each day since discharge. He has never had signs or symptoms of bowel obstruction before last week. In the ED, abdominal xray showed air-fluid levels suggesting bowel obstruction. PMH: H/o colorectal cancer PSH: Colection, cystectomy, prostatectomy, appendectomy with colostomy and urostomy B/l inguinal hernia repair Home Medications Medication Instructions Recorded Confirmed Type NK [No Home Medications Reported] 03/27/12 08/23/19 History Allergies No Known Allergies Allergy (Verified 08/23/19 09:10) FH: Mother had a breast cancer and lymphoma. Father had prostate cancer. SH: He lives with his at home. He is retired. He denies current tobacco, alcohol, or recreational drug use. ROS: 10-point review of systems was obtained. Pertinent positives and negatives are in HPI. PHYSICAL EXAM: Temp Pulse Resp BP Pulse Ox 99.6 F 81 24 97/54 95 08/23/19 09:05 08/23/19 12:06 08/23/19 12:06 08/23/19 12:06 08/23/19 12:06 General: No acute distress. Head: Normocephalic and atraumatic. Eyes: Pupils are equal. No scleral icterus. Mouth: Mucous membranes are moist. Neck: Supple. Trachea midline. CV: Regular rate and rhythm. Respiratory: Clear to auscultation. Abdomen: Soft, nondistended. Mild tenderness to palpation around the colostomy. No stool or air in the colostomy bag. Clear urine in the urostomy. No rebound or guarding. Extremities: Warm. No pedal edema. Skin: Warm and dry. Intact. Neuro: Alert and oriented 3. Moves all extremities equally. Psych: Normal affect. Laboratory Results - last 24 hr 08/23/19 08/23/19 08/23/19 09:39 09:39 09:39 WBC 12.8 H RBC 4.55 Hgb 13.8 L Hct 40 L MCV 87 MCH 30 MCHC 35 RDW 13 Plt Count 333 MPV 6.7 L Neut % (Auto) 90.9 Lymph % (Auto) 2.0 [place] % (Auto) 6.6 Eos % (Auto) 0.1 Baso % (Auto) 0.4 Absolute Neuts (auto) 11.6 H Absolute Lymphs (auto) 0.3 L Absolute Monos (auto) 0.8 Absolute Eos (auto) 0.0 Absolute Basos (auto) 0.0 Absolute Nucleated RBC 0.0 Nucleated RBC % 0.0 Sodium 131 L Potassium 4.1 Chloride 93 L Carbon Dioxide 29 Anion Gap 9 BUN 16 Creatinine 1.04 Est GFR ( Amer) 83.6 Est GFR (Non-Af Amer) 69.1 BUN/Creatinine Ratio 15.4 Glucose 113 H Lactic Acid 1.4 Calcium 8.4 L Magnesium 1.4 L Total Bilirubin 1.00 AST 16 ALT 16 Alkaline Phosphatase 75 C-Reactive Protein 25.72 H Total Protein 6.5 Albumin 3.9 Globulin 2.6 Albumin/Globulin Ratio 1.5 Lipase < 10 L IMPRESSION: 78M with SBO. Unclear if the obstruction was unresolved or if these symptoms are a new episode. Will plan to manage conservatively for now. I discussed with the patient and his that I will repeat CT abd/pelv in 1-2 days if there is no improvement. I talked with them about the possibility of surgery during this admission if his symptoms do not resolve. PLAN: NPO. IV hydration. Patient is not currently nauseous. If he is vomiting, place NG tube. Encourage ambulation. Will follow.
[2019-08-23] MEDS: Enoxaparin(*) 40 MG/0.4 ML SYR SUBCUT SCH (14:10)
--- NOTE | 2019-08-23 15:23 | HP ---
CC: Dr. Mccann; Dr. Arana * HISTORY AND PHYSICAL: DATE OF ADMISSION: 08/23/19 PROVIDER: Karishma Vega NP PRIMARY CARE PROVIDER: Dr. Mccann. ATTENDING PHYSICIAN WHILE IN THE HOSPITAL: Dr. Casie Alejandre * (dictated by Karishma Vega NP). CHIEF COMPLAINT: Nausea, vomiting, abdominal pain. HISTORY OF PRESENT ILLNESS: Mr. Xavier is a 78-year-old male with a past medical history of extensive surgery back in the for colorectal cancer who initially underwent a colectomy, removal of his rectum, bladder, prostate, and appendix; and has a colostomy and urostomy, who presented to the emergency room with complaints of nausea and vomiting that started yesterday. The patient was recently admitted from 08/16/19 to 08/19/19 with a small bowel obstruction. At that time, we did conservative medical management. The patient was able to tolerate a soft diet on the day of discharge and was doing well. The patient reports that he returned home. He was feeling well Friday and Friday with no issues. The patient does report that he had a large bowel movement on Friday and was tolerating a soft diet at home without any issues. The patient reports that on Friday he developed nausea and vomiting and was unable to tolerate any foods. He does report some mid to lower abdominal pain rated at a 1/10 as a dull throbbing ache, associated with some bloating. Today , the patient was unable to even tolerate water. He had decreased colostomy and urostomy output, so they presented to the emergency room for further evaluation. The patient also reports he has had intermittent chills on and off since yesterday, but denies any fever. He denies any cough, congestion, or hemoptysis. Denies any rashes, lesions, open sores, psychosis, or anxiety. Denies any rhinorrhea. He does report abdominal pain as a throbbing dull ache in his mid to lower abdomen and he does report decreased urinary output. The patient had routine lab work drawn and x-ray of the abdomen and a chest x- ray, which confirmed small bowel obstruction. The patient does have a white count of 12.8, but is afebrile and not tachycardic. Due to these findings, Hospital Medicine was asked to see and evaluate the patient for admission. PAST MEDICAL HISTORY: Significant for colorectal cancer with extensive surgery. PAST SURGICAL HISTORY: 1. Tonsillectomy. 2. Right and left inguinal hernia repairs. 3. Colostomy. 4. Urostomy. 5. Colectomy. 6. Prostate and bladder removed. HOME MEDICATIONS: None. ALLERGIES: No known drug allergies. FAMILY HISTORY: Mom at the age of 68 due to breast cancer and lymphoma. Dad at the age of 78 due to prostate cancer. SOCIAL HISTORY: The patient is a former smoker, smoked 2 packs per day for approximately 10 years, quitting in 2012. He denies any alcohol or illicit drug use. 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 He is . He has 3 children. His is his surrogate decision maker in the event he is unable to make his own decisions. He is a full code. REVIEW OF SYSTEMS: A 14-point review of systems was completed. All pertinent positives were mentioned in the HPI, otherwise were negative. PHYSICAL EXAMINATION GENERAL: At this time, Mr. Xavier is alert and oriented, resting on the stretcher in the emergency room. He is in no acute distress. VITAL SIGNS: Blood pressure 97/54, heart rate 81, respirations 24, O2 saturation 95%, temperature was 99.6. HEENT: Head is atraumatic, normocephalic. Eyes: EOMs are intact. Sclerae anicteric and not pale. Oral mucosa is moist. LUNGS: Clear to auscultation bilaterally. No wheezes, rales, or rhonchi. CARDIAC: S1, S2. Regular rate and rhythm. No murmurs, rubs, or gallops. ABDOMEN: Bowel sounds are present. Abdomen is soft, nondistended. He does have mild lower abdominal tenderness. The patient's colostomy is on the left of the abdomen. There is no liquid stool noted. The stoma is pink. The urostomy is on the right side. It has medium yellow urine noted. MUSCULOSKELETAL: The patient is able to move all 4 extremities. There is no clubbing or cyanosis. Pedal pulses are +2 bilaterally. NEUROLOGIC: The patient is awake, alert, oriented x3. Speech is clear. Thought process is intact. Cranial nerves II through XII are grossly intact. PSYCH: The patient is alert and oriented x3. He has appropriate affect. He is calm, resting on the stretcher in the emergency room. SKIN: Intact, warm, dry. No rashes. DIAGNOSTIC STUDIES/LAB DATA: WBCs are 12.8, RBCs 4.55, hemoglobin 13.8, hematocrit 40, platelet count 333. Sodium 131, potassium 4.1, chloride 93, carbon dioxide was 29, anion gap 9, BUN 16, creatinine 1.04, glucose 113, lactic acid 1.4, calcium 8.4, magnesium 1.4. ASTs were 16, ALTs were 16, alkaline phosphatase was 75. C-reactive protein was 25.72. Lipase was less than 10. The patient had an x-ray, radiologist's impression: 1. Stigmata for obstructive lung disease and probable pulmonary arterial hypertension. 2. Mild linear atelectasis in the left mid to lower lung zone without gross changes accounting for the difference in technique. He had an abdominal x-ray that showed a small bowel obstruction. ASSESSMENT AND PLAN: Mr. Xavier is a 78-year-old male with a past medical history significant for colorectal cancer with extensive surgery with urostomy and colostomy, who presented to the emergency room with complaints of abdominal pain, nausea, and vomiting since yesterday, with recent known small bowel obstruction. He will be admitted inpatient for: 1. Small bowel obstruction. The patient currently does not have any drainage in his colostomy. We will continue to monitor. The patient is not currently vomiting at this time, but has had intermittent nausea and vomiting. We are going to hold off on an NG tube at this time as the patient is not vomiting and not uncomfortable. I will repeat an abdominal x-ray tomorrow. If his symptoms continue to remain the same or become worse, we will consider CT of the abdomen and pelvis. We have consulted Surgery, Dr. Arana, who saw the patient in the emergency room in consultation and recommended medical management. At this time , we will continue with IV fluids and symptom management. 2. Hyponatremia. The patient does have a sodium of 131. I suspect this is related to dehydration as being unable to tolerate food and fluids. The patient did receive 2 L of normal saline in the emergency room. I will continue him on D5 1/2 normal saline and repeat a BMP in the a.m. 3. Hypomagnesemia. The patient does have a magnesium level of 1.4. He received 4 g of magnesium in the emergency room. Repeat a mag level in the morning. 4. DVT prophylaxis: The patient has a total risk of 6, making him high risk. I will place him on Lovenox subcu for DVT prophylaxis. 5. Code status: He is a full code. 6. FEN: He will be n.p.o. TIME SPENT: Time spent on this admission was 60 minutes, greater than half that time was spent at the bedside reviewing events leading thus far to his hospitalization, performing physical exam, and reviewing my plan of care. I have discussed this with my attending, Dr. Casie Alejandre; she is in agreement with my plan. KARISHMA VEGA, JAPANESE PROFESSOR [id number]/CPS #: [id number] SONAL
[2019-08-23] MEDS: D5W 1/2 NS 1000 ML BAG* 1,000 ML IV SCH (19:18)
[2019-08-24] MEDS: D5W 1/2 NS 1000 ML BAG* 1,000 ML IV SCH ×2 (04:15→14:08)
[2019-08-24 05:25] LABS: Urine Appearance Cloudy; Urine Bilirubin Negative (Negative); Urine Blood Negative (Negative); Urine Color Yellow; Urine Glucose Negative (Negative); Urine Ketones Negative (Negative); Urine Nitrite Positive (Negative); Urine Protein Negative (Negative); Urine Specific Gravity 1.008 (1.010-1.030); Urine Urobilinogen Negative (Negative)
[2019-08-24 05:45] LABS: Urine Bacteria 1+ (Absent); Urine Red Blood Cell 2+(6-10/hpf) (Absent); Urine White Blood Cell 2+(11-20/hpf) (Absent)
[2019-08-24 06:02] LABS: ABS Eosinophils 0.1 10^3/ul (0-0.6); ABS Lymphocytes 0.5 10^3/ul (1.0-4.8); ABS Monocytes 0.6 10^3/ul (0-0.8); ABS Neutrophils 6.4 10^3/ul (1.5-7.7); Eosinophil % 0.9 %; Hematocrit 34 % (42-52); Mean Corpuscular HGB Conc 35 g/dL (31-36); Mean Corpuscular Hemoglobin 31 pg (27-31); Mean Corpuscular Volume 88 fL (80-94); Mean Platelet Volume 6.4 fL (7.4-10.4); Platelet Count 286 10^3/uL (150-450); Red Blood Count 3.91 10^6 /uL (4.18-5.48); Red Cell Distribution Width 13 % (10-15); White Blood Count 7.6 10^3/uL (3.5-10.8)
[2019-08-24 06:12] LABS: INR 1.41 (0.82-1.09)
[2019-08-24 06:15] LABS: BUN/Creatinine Ratio 17.9 (8-20); Calcium 7.3 mg/dL (8.6-10.3); EGFR African American 138.8 (>60); EGFR Non-African American 114.7 (>60); Magnesium 1.9 mg/dL (1.9-2.7); Potassium 3.6 mmol/L (3.5-5.0)
--- NOTE | 2019-08-24 10:27 | PN ---
Subjective Date of Service: 08/24/19 Interval History: Patient reports that he is feeling better today. Reports that he passed a large amount of liquid stool from colostomy. Does continue to report mild tenderness around the stoma site. Denies fever or chills. Denies chest pain or shortness of breath. Denies nausea or vomiting. Spoke to surgery today- will start on sips of water. Family History: Unchanged from Admission Social History: Unchanged from Admission Past Medical History: Unchanged from Admission Objective Active Medications: Enoxaparin Sodium (Lovenox(*)) 40 mg SUBCUT Q24H [facility] Last Admin: 08/23/19 14:10 Dose: 40 mg Dextrose/Sodium Chloride (D5w 1/2 Ns 1000 Ml Bag*) 1,000 mls @ 100 mls/hr IV PER RATE [facility] Last Admin: 08/24/19 04:15 Dose: 100 mls/hr Ondansetron HCl (Zofran Inj*) 4 mg IV Q6H PRN PRN Reason: NAUSEA Vital Signs - 8 hr 08/24/19 08/24/19 08/24/19 05:16 05:30 07:29 Temperature 97.9 F 98.1 F Pulse Rate 73 73 Respiratory 16 17 Rate Blood Pressure 99/49 115/58 95/50 (mmHg) O2 Sat by Pulse 96 97 Oximetry 08/24/19 07:52 Temperature Pulse Rate Respiratory 17 Rate Blood Pressure 108/60 (mmHg) O2 Sat by Pulse Oximetry Oxygen Devices in Use Now: None Appearance: alert, no acute distress Eyes: No Scleral Icterus Ears/Nose/Mouth/Throat: Clear Oropharnyx, Mucous Membranes Moist Neck: NL Appearance and Movements; NL JVP, Trachea Midline Respiratory: Symmetrical Chest Expansion and Respiratory Effort, Clear to Auscultation Cardiovascular: NL Sounds; No Murmurs; No JVD, No Edema Abdominal: NL Sounds; No Tenderness; No Distention, - - urostomy noted to the right abd draining yellow urine, colostomy to the left abd small of yellow stool noted to the stoma. Lymphatic: No Cervical Adenopathy Extremities: No Edema, No Clubbing, Cyanosis Skin: No Rash or Ulcers Neurological: Alert and Oriented x 3 Nutrition: Taking PO's Result Diagrams: 08/24/19 05:43 08/24/19 05:43 Additional Lab and Data: Lab Results 08/23/19 08/23/19 08/23/19 Range/Units 09:39 09:39 09:39 WBC 12.8 H (3.5-10.8) 10^3/uL RBC 4.55 (4.18-5.48) 10^6 /uL Hgb 13.8 L (14.0-18.0) g/dL Hct 40 L (42-52) % MCV 87 (80-94) fL MCH 30 (27-31) pg MCHC 35 (31-36) g/dL RDW 13 (10-15) % Plt Count 333 (150-450) 10^3/uL MPV 6.7 L (7.4-10.4) fL Neut % (Auto) 90.9 % Lymph % (Auto) 2.0 % [place] % (Auto) 6.6 % Eos % (Auto) 0.1 % Baso % (Auto) 0.4 % Absolute Neuts (auto) 11.6 H (1.5-7.7) 10^3/ul Absolute Lymphs (auto) 0.3 L (1.0-4.8) 10^3/ul Absolute Monos (auto) 0.8 (0-0.8) 10^3/ul Absolute Eos (auto) 0.0 (0-0.6) 10^3/ul Absolute Basos (auto) 0.0 (0-0.2) 10^3/ul Absolute Nucleated RBC 0.0 10^3/ul Nucleated RBC % 0.0 Sodium 131 L (135-145) mmol/L Potassium 4.1 (3.5-5.0) mmol/L Chloride 93 L (101-111) mmol/L Carbon Dioxide 29 (22-32) mmol/L Anion Gap 9 (2-11) mmol/L BUN 16 (6-24) mg/dL Creatinine 1.04 (0.67-1.17) mg/dL Est GFR ( Amer) 83.6 (>60) Est GFR (Non-Af Amer) 69.1 (>60) BUN/Creatinine Ratio 15.4 (8-20) Glucose 113 H (70-100) mg/dL Lactic Acid 1.4 (0.5-2.0) mmol/L Calcium 8.4 L (8.6-10.3) mg/dL Magnesium 1.4 L (1.9-2.7) mg/dL Total Bilirubin 1.00 (0.2-1.0) mg/dL AST 16 (13-39) U/L ALT 16 (7-52) U/L Alkaline Phosphatase 75 (34-104) U/L C-Reactive Protein 25.72 H (<8.01) mg/L Total Protein 6.5 (6.4-8.9) g/dL Albumin 3.9 (3.2-5.2) g/dL Globulin 2.6 (2-4) g/dL Albumin/Globulin Ratio 1.5 (1-3) Lipase < 10 L (11.0-82.0) U/L Assess/Plan/Problems-Billing Assessment: - Patient Problems (1) SBO (small bowel obstruction) Current Visit: No Status: Acute Code(s): K56.609 - UNSP INTESTNL OBST, UNSP TO PARTIAL VERSUS COMPLETE OBST SNOMED Code(s): 313874229 Comment: Pt feels tran better. Advance diet sips of water- per surgery - will monitor for now -if no improvements will get CT of the Abd/pelvis per surgery (2) Hyponatremia Current Visit: Yes Status: Acute Code(s): E87.1 - HYPO-OSMOLALITY AND HYPONATREMIA SNOMED Code(s): 33425114 Comment: improving - will continue d5ns - repeat BMP in the AM (3) DVT prophylaxis Current Visit: No Status: Acute Code(s): Z29.9 - ENCOUNTER FOR PROPHYLACTIC MEASURES, UNSPECIFIED SNOMED Code(s): 000522887 Comment: farshad (4) Full code status Current Visit: No Status: Acute Code(s): Z78.9 - OTHER SPECIFIED HEALTH STATUS SNOMED Code(s): 211578553 Status and Disposition: inpatient
--- NOTE | 2019-08-24 10:29 | PN ---
Progress Note - Progress Note Date of Service: 08/24/19 Note: Feeling better this morning. Continues to have mild abdominal discomfort around colostomy but improved from yesterday. Feels bloated. Denies nausea or vomiting. Denies chest pain or SOB. Has been ambulating in hallways without difficulty. Has had liquid stool from colostomy, no air. Vital Signs - 12 hr Temp Pulse Resp BP Pulse Ox 08/24/19 07:52 17 108/60 08/24/19 07:29 98.1 F 73 17 95/50 97 08/24/19 05:30 115/58 08/24/19 05:16 97.9 F 73 16 99/49 96 08/24/19 00:17 98.2 F 75 16 113/54 96 Intake & Output 08/23/19 08/24/19 08/24/19 22:59 06:59 14:59 Intake Total 800 1242 0 Output Total 350 1495 Balance 450 -253 0 Intake: IV Fluids 1242 D5W 1/2 NS 1242 Oral 800 0 0 Output: Urostomy 350 880 Colostomy 0 615 Ileostomy 0 General: NAD CV: RRR Resp: Clear to auscultation. No accessory muscle use. Abdomen: Soft, minimally distended. Mild tenderness to palpation around colostomy. No rebound or guarding. Stoma pink. No output in colostomy bag. Extremities: Warm. No pedal edema. Neuro: Alert and oriented x3. Moves all extremities equally. Psych: Normal affect. Laboratory Results - last 24 hr 08/23/19 08/24/19 08/24/19 09:39 05:15 05:43 WBC 7.6 RBC 3.91 L Hgb 12.0 L Hct 34 L MCV 88 MCH 31 MCHC 35 RDW 13 Plt Count 286 MPV 6.4 L Neut % (Auto) 90.9 84.2 Lymph % (Auto) 2.0 7.0 [place] % (Auto) 6.6 7.7 Eos % (Auto) 0.1 0.9 Baso % (Auto) 0.4 0.2 Absolute Neuts (auto) 11.6 H 6.4 Absolute Lymphs (auto) 0.3 L 0.5 L Absolute Monos (auto) 0.8 0.6 Absolute Eos (auto) 0.0 0.1 Absolute Basos (auto) 0.0 0.0 Absolute Nucleated RBC 0.0 0.0 Nucleated RBC % 0.0 0.0 INR (Anticoag Therapy) Sodium Potassium Chloride Carbon Dioxide Anion Gap BUN Creatinine Est GFR ( Amer) Est GFR (Non-Af Amer) BUN/Creatinine Ratio Glucose Calcium Magnesium Urine Color Yellow Urine Appearance Cloudy Urine pH 8.0 Ur Specific [place] 1.008 L Urine Protein Negative Urine Ketones Negative Urine Blood Negative Urine Nitrate Positive A Urine Bilirubin Negative Urine Urobilinogen Negative Ur Leukocyte Esterase Trace A Urine WBC (Auto) 2+(11-20/hpf) A Urine RBC (Auto) 2+(6-10/hpf) A Triple Phos Crystals Present A Urine Bacteria 1+ A Urine Glucose Negative 08/24/19 08/24/19 05:43 05:43 WBC RBC Hgb Hct MCV MCH MCHC RDW Plt Count MPV Neut % (Auto) Lymph % (Auto) [place] % (Auto) Eos % (Auto) Baso % (Auto) Absolute Neuts (auto) Absolute Lymphs (auto) Absolute Monos (auto) Absolute Eos (auto) Absolute Basos (auto) Absolute Nucleated RBC Nucleated RBC % INR (Anticoag Therapy) 1.41 H Sodium 134 L Potassium 3.6 Chloride 103 Carbon Dioxide 28 Anion Gap 3 BUN 12 Creatinine 0.67 Est GFR ( Amer) 138.8 Est GFR (Non-Af Amer) 114.7 BUN/Creatinine Ratio 17.9 Glucose 111 H Calcium 7.3 L Magnesium 1.9 Urine Color Urine Appearance Urine pH Ur Specific [place] Urine Protein Urine Ketones Urine Blood Urine Nitrate Urine Bilirubin Urine Urobilinogen Ur Leukocyte Esterase Urine WBC (Auto) Urine RBC (Auto) Triple Phos Crystals Urine Bacteria Urine Glucose A&P 78M with partial SBO. -Sips of clears today as tolerated. -Plan for CT abd/pelv with oral contrast tomorrow unless there is air in colostomy or symptoms have resolved. -Encourage ambulation.
[2019-08-24] MEDS: Enoxaparin(*) 40 MG/0.4 ML SYR SUBCUT SCH (13:17)
[2019-08-25] MEDS: D5W 1/2 NS KCl 20 Meq 1000 ML* 1,000 ML IV SCH ×2 (00:20→13:52)
[2019-08-25 06:52] LABS: ABS Eosinophils 0.1 10^3/ul (0-0.6); ABS Lymphocytes 0.5 10^3/ul (1.0-4.8); ABS Monocytes 0.6 10^3/ul (0-0.8); ABS Neutrophils 4.2 10^3/ul (1.5-7.7); Eosinophil % 1.9 %; Hematocrit 34 % (42-52); Hemoglobin 11.7 g/dL (14.0-18.0); Lymphocyte % 8.9 %; Mean Corpuscular HGB Conc 35 g/dL (31-36); Mean Corpuscular Hemoglobin 31 pg (27-31); Mean Corpuscular Volume 88 fL (80-94); Mean Platelet Volume 6.8 fL (7.4-10.4); Platelet Count 282 10^3/uL (150-450); Red Blood Count 3.84 10^6 /uL (4.18-5.48); Red Cell Distribution Width 13 % (10-15); White Blood Count 5.3 10^3/uL (3.5-10.8)
[2019-08-25 07:09] LABS: BUN/Creatinine Ratio 7.4 (8-20); Calcium 7.4 mg/dL (8.6-10.3); EGFR African American 178.1 (>60); EGFR Non-African American 147.2 (>60); Potassium 3.4 mmol/L (3.5-5.0)
[2019-08-25] MEDS ORDERED: Potassium Chlor TAB* 20 MEQ TAB.ER PO ONE (09:02)
--- NOTE | 2019-08-25 11:19 | PN ---
Subjective Date of Service: 08/25/19 Interval History: Reports continued tenderness around colostomy. report very little gas has been passed. does report continued liquid stools from the colostomy, no solid stools. does report feeling of bloating to the left abdomen. Denies chest pain or shortness of breath. Denies fever or chills. Denies nausea or vomiting. Started on sips of water yesterday- tolerated well so far. Discussed case with surgery - will have CT of the abd with contrast today - further recommendation based on CT results. Family History: Unchanged from Admission Social History: Unchanged from Admission Past Medical History: Unchanged from Admission Objective Active Medications: Enoxaparin Sodium (Lovenox(*)) 40 mg SUBCUT Q24H [facility] Last Admin: 08/24/19 13:17 Dose: 40 mg Potassium Chloride/Dextrose (D5w 1/2 Ns Kcl 20 Meq 1000 Ml*) 1,000 mls @ 75 mls /hr IV PER RATE [facility] Last Admin: 08/25/19 00:20 Dose: 75 mls/hr Ondansetron HCl (Zofran Inj*) 4 mg IV Q6H PRN PRN Reason: NAUSEA Vital Signs - 8 hr 08/25/19 08/25/19 08/25/19 03:37 07:00 07:51 Temperature 98 F 98.2 F Pulse Rate 65 68 Respiratory 18 17 17 Rate Blood Pressure 111/56 107/59 (mmHg) O2 Sat by Pulse 96 97 Oximetry Oxygen Devices in Use Now: None Appearance: appears comfortable, no acute distress Eyes: No Scleral Icterus Ears/Nose/Mouth/Throat: Clear Oropharnyx, Mucous Membranes Moist Neck: NL Appearance and Movements; NL JVP, Trachea Midline Respiratory: Symmetrical Chest Expansion and Respiratory Effort, Clear to Auscultation Cardiovascular: NL Sounds; No Murmurs; No JVD, No Edema Abdominal: NL Sounds; No Tenderness; No Distention, - - urostomy draining medium yellow urine cloudy, colostomy with small of amt of liquid light yellow drainage, tenderness noted around colostomy site with palpation, soft. Extremities: No Edema Skin: No Rash or Ulcers Neurological: Alert and Oriented x 3 - Nutrition: Malnutrition Diagnosis/Plan Malnutrition Assessment by Registered Dietitian: Malnutrition Assessment Clinical Characteristics Acute,Severe Malnutrition Assessment: - 9.2% wt loss in the past three months (130# - Criteria > 118# since June) - visible, moderate temporal and clavicular wasting Malnutrition Assessment: 1. will follow for resolution of SBO and any Interventions potential need for parenteral nutrition 2. presently accepting sips of clear liquids; follow tolerance to diet progression 3. provide Ensure Clear as appropriate at this time (sips of clears, per MD order) 4. monitor electrolytes; MD to order replacement as appropriate Malnutrition Assessment: Goals 1. pt will tolerate po diet progression without adverse GI effects 2. adequate po intake to maintain stable wt, lean body mass, and hydration 3. achieve and maintain serum electrolytes levels WNL 4. achieve and maintain regulated bowel pattern without c/o constipation (or diarrhea) 5. consideration of parenteral nutrition suport if SBO slow to resolve Result Diagrams: 08/25/19 06:28 08/25/19 06:28 Additional Lab and Data: Lab Results 08/23/19 08/23/19 08/23/19 Range/Units 09:39 09:39 09:39 WBC 12.8 H (3.5-10.8) 10^3/uL RBC 4.55 (4.18-5.48) 10^6 /uL Hgb 13.8 L (14.0-18.0) g/dL Hct 40 L (42-52) % MCV 87 (80-94) fL MCH 30 (27-31) pg MCHC 35 (31-36) g/dL RDW 13 (10-15) % Plt Count 333 (150-450) 10^3/uL MPV 6.7 L (7.4-10.4) fL Neut % (Auto) 90.9 % Lymph % (Auto) 2.0 % [place] % (Auto) 6.6 % Eos % (Auto) 0.1 % Baso % (Auto) 0.4 % Absolute Neuts (auto) 11.6 H (1.5-7.7) 10^3/ul Absolute Lymphs (auto) 0.3 L (1.0-4.8) 10^3/ul Absolute Monos (auto) 0.8 (0-0.8) 10^3/ul Absolute Eos (auto) 0.0 (0-0.6) 10^3/ul Absolute Basos (auto) 0.0 (0-0.2) 10^3/ul Absolute Nucleated RBC 0.0 10^3/ul Nucleated RBC % 0.0 Sodium 131 L (135-145) mmol/L Potassium 4.1 (3.5-5.0) mmol/L Chloride 93 L (101-111) mmol/L Carbon Dioxide 29 (22-32) mmol/L Anion Gap 9 (2-11) mmol/L BUN 16 (6-24) mg/dL Creatinine 1.04 (0.67-1.17) mg/dL Est GFR ( Amer) 83.6 (>60) Est GFR (Non-Af Amer) 69.1 (>60) BUN/Creatinine Ratio 15.4 (8-20) Glucose 113 H (70-100) mg/dL Lactic Acid 1.4 (0.5-2.0) mmol/L Calcium 8.4 L (8.6-10.3) mg/dL Magnesium 1.4 L (1.9-2.7) mg/dL Total Bilirubin 1.00 (0.2-1.0) mg/dL AST 16 (13-39) U/L ALT 16 (7-52) U/L Alkaline Phosphatase 75 (34-104) U/L C-Reactive Protein 25.72 H (<8.01) mg/L Total Protein 6.5 (6.4-8.9) g/dL Albumin 3.9 (3.2-5.2) g/dL Globulin 2.6 (2-4) g/dL Albumin/Globulin Ratio 1.5 (1-3) Lipase < 10 L (11.0-82.0) U/L Assess/Plan/Problems-Billing Assessment: - Patient Problems (1) SBO (small bowel obstruction) Current Visit: No Status: Acute Code(s): K56.609 - UNSP INTESTNL OBST, UNSP TO PARTIAL VERSUS COMPLETE OBST SNOMED Code(s): 136582405 Comment: - reports mild tenderness to left abd around colostomy site and mild bloating - tolerating sips of clears well- no nausea or vomiting - will get CT of the Abd/pelvis with contrast- further recommendations per surgery (2) Hyponatremia Current Visit: Yes Status: Acute Code(s): E87.1 - HYPO-OSMOLALITY AND HYPONATREMIA SNOMED Code(s): 86601808 Comment: improved - will continue d5 1/2ns with 20 meq of KCL as potassium 3.4 today - repeat BMP in the AM (3) DVT prophylaxis Current Visit: No Status: Acute Code(s): Z29.9 - ENCOUNTER FOR PROPHYLACTIC MEASURES, UNSPECIFIED SNOMED Code(s): 121837902 Comment: farshad (4) Full code status Current Visit: No Status: Acute Code(s): Z78.9 - OTHER SPECIFIED HEALTH STATUS SNOMED Code(s): 943554104 Status and Disposition: inpatient
[2019-08-25] MEDS ORDERED: Iohexol 300* (CONTRAST) 10 ML SDV IV ONE (11:35)
--- NOTE | 2019-08-25 11:43 | PN ---
Progress Note - Progress Note Date of Service: 08/25/19 SOAP: Subjective: NAD Ambulating well reports fluid in ostomy appliance but minimal gas [] Objective: Vital Signs Temp 99 F 08/25/19 11:00 Pulse 66 08/25/19 11:00 Resp 16 08/25/19 11:00 BP 121/61 08/25/19 11:00 Pulse Ox 100 08/25/19 11:00 Intake & Output 08/24/19 08/25/19 08/25/19 18:59 06:59 18:59 Intake Total 988 190 Output Total 825 1550 Balance 163 -1360 Intake: IV Fluids 988 D5W 1/2 NS 988 Oral 0 190 Output: Jack 1100 Urostomy 525 350 Colostomy 300 100 PEX GEN: NAD Chest:CTAB CVS: RRR ABD: soft, mild tenderness LLQ, + Tympany to percussion ostomy with liquid output, Ext: calves soft non tender [] Assessment: 78 yo male HD 3 for PSBO recurrant s/p admit 08/15 - 08/18 for same. [] Plan: CT abd/Pel with IV and PO contrast. Further treatment plan based on result of scan. Above D/W Patient and with Dr Arana []
[2019-08-25] MEDS ORDERED: Iodixanol* (CONTRAST) 320 MG/ML 100 ML SDV IV ONE (11:51)
[2019-08-25] MEDS: Enoxaparin(*) 40 MG/0.4 ML SYR SUBCUT SCH (13:52)
[2019-08-26] MEDS: D5W 1/2 NS KCl 20 Meq 1000 ML* 1,000 ML IV SCH ×2 (03:08→16:30)
[2019-08-26 09:59] LABS: ABS Eosinophils 0.1 10^3/ul (0-0.6); ABS Lymphocytes 0.4 10^3/ul (1.0-4.8); ABS Monocytes 0.4 10^3/ul (0-0.8); ABS Neutrophils 3.3 10^3/ul (1.5-7.7); Eosinophil % 1.6 %; Hematocrit 35 % (42-52); Hemoglobin 12.3 g/dL (14.0-18.0); Lymphocyte % 10.5 %; Mean Corpuscular HGB Conc 35 g/dL (31-36); Mean Corpuscular Hemoglobin 31 pg (27-31); Mean Corpuscular Volume 88 fL (80-94); Mean Platelet Volume 6.5 fL (7.4-10.4); Platelet Count 339 10^3/uL (150-450); Red Blood Count 4.03 10^6 /uL (4.18-5.48); Red Cell Distribution Width 13 % (10-15); White Blood Count 4.2 10^3/uL (3.5-10.8)
--- NOTE | 2019-08-26 10:33 | PN ---
Subjective Date of Service: 08/26/19 Interval History: continues to c/o left sided abdominal tenderness and bloating. Denies chest pain or shortness of breath. Denies fever or chills. Denies nausea or vomiting. Case discussed with surgery will advance diet to clear liquids today. Repeat labs CT shows partial obstruction at this point- will continue to monitor. Family History: Unchanged from Admission Social History: Unchanged from Admission Past Medical History: Unchanged from Admission Objective Active Medications: Enoxaparin Sodium (Lovenox(*)) 40 mg SUBCUT Q24H [facility] Last Admin: 08/25/19 13:52 Dose: 40 mg Potassium Chloride/Dextrose (D5w 1/2 Ns Kcl 20 Meq 1000 Ml*) 1,000 mls @ 75 mls /hr IV PER RATE [facility] Last Admin: 08/26/19 03:08 Dose: 75 mls/hr Ondansetron HCl (Zofran Inj*) 4 mg IV Q6H PRN PRN Reason: NAUSEA Vital Signs - 8 hr 08/26/19 08/26/19 08/26/19 03:15 03:18 07:56 Temperature 97.8 F 97.8 F 97.9 F Pulse Rate 60 61 64 Respiratory 18 18 18 Rate Blood Pressure 121/54 121/54 112/63 (mmHg) O2 Sat by Pulse 97 97 97 Oximetry 08/26/19 08:00 Temperature Pulse Rate Respiratory 18 Rate Blood Pressure (mmHg) O2 Sat by Pulse Oximetry Oxygen Devices in Use Now: None Appearance: alert, oriented x 3 , no acute distress Eyes: No Scleral Icterus Ears/Nose/Mouth/Throat: Clear Oropharnyx, Mucous Membranes Moist Neck: NL Appearance and Movements; NL JVP, Trachea Midline Respiratory: Symmetrical Chest Expansion and Respiratory Effort, Clear to Auscultation Cardiovascular: NL Sounds; No Murmurs; No JVD, No Edema Abdominal: - - BS active x 4 right abd with urostomy draining medium yellow urine, Left abd with colostomy continues with liquid stools Extremities: No Edema, No Clubbing, Cyanosis Skin: No Rash or Ulcers Neurological: Alert and Oriented x 3 Nutrition: Taking PO's - Nutrition: Malnutrition Diagnosis/Plan Malnutrition Assessment by Registered Dietitian: Malnutrition Assessment Clinical Characteristics Acute,Severe Malnutrition Assessment: - 9.2% wt loss in the past three months (130# - Criteria > 118# since June) - visible, moderate temporal and clavicular wasting Malnutrition Assessment: 1. will follow for resolution of SBO and any Interventions potential need for parenteral nutrition 2. presently accepting sips of clear liquids; follow tolerance to diet progression 3. provide Ensure Clear as appropriate at this time (sips of clears, per MD order) 4. monitor electrolytes; MD to order replacement as appropriate Malnutrition Assessment: Goals 1. pt will tolerate po diet progression without adverse GI effects 2. adequate po intake to maintain stable wt, lean body mass, and hydration 3. achieve and maintain serum electrolytes levels WNL 4. achieve and maintain regulated bowel pattern without c/o constipation (or diarrhea) 5. consideration of parenteral nutrition suport if SBO slow to resolve Result Diagrams: 08/26/19 09:33 08/25/19 06:28 Additional Lab and Data: Lab Results 08/23/19 08/23/19 08/23/19 Range/Units 09:39 09:39 09:39 WBC 12.8 H (3.5-10.8) 10^3/uL RBC 4.55 (4.18-5.48) 10^6 /uL Hgb 13.8 L (14.0-18.0) g/dL Hct 40 L (42-52) % MCV 87 (80-94) fL MCH 30 (27-31) pg MCHC 35 (31-36) g/dL RDW 13 (10-15) % Plt Count 333 (150-450) 10^3/uL MPV 6.7 L (7.4-10.4) fL Neut % (Auto) 90.9 % Lymph % (Auto) 2.0 % [place] % (Auto) 6.6 % Eos % (Auto) 0.1 % Baso % (Auto) 0.4 % Absolute Neuts (auto) 11.6 H (1.5-7.7) 10^3/ul Absolute Lymphs (auto) 0.3 L (1.0-4.8) 10^3/ul Absolute Monos (auto) 0.8 (0-0.8) 10^3/ul Absolute Eos (auto) 0.0 (0-0.6) 10^3/ul Absolute Basos (auto) 0.0 (0-0.2) 10^3/ul Absolute Nucleated RBC 0.0 10^3/ul Nucleated RBC % 0.0 Sodium 131 L (135-145) mmol/L Potassium 4.1 (3.5-5.0) mmol/L Chloride 93 L (101-111) mmol/L Carbon Dioxide 29 (22-32) mmol/L Anion Gap 9 (2-11) mmol/L BUN 16 (6-24) mg/dL Creatinine 1.04 (0.67-1.17) mg/dL Est GFR ( Amer) 83.6 (>60) Est GFR (Non-Af Amer) 69.1 (>60) BUN/Creatinine Ratio 15.4 (8-20) Glucose 113 H (70-100) mg/dL Lactic Acid 1.4 (0.5-2.0) mmol/L Calcium 8.4 L (8.6-10.3) mg/dL Magnesium 1.4 L (1.9-2.7) mg/dL Total Bilirubin 1.00 (0.2-1.0) mg/dL AST 16 (13-39) U/L ALT 16 (7-52) U/L Alkaline Phosphatase 75 (34-104) U/L C-Reactive Protein 25.72 H (<8.01) mg/L Total Protein 6.5 (6.4-8.9) g/dL Albumin 3.9 (3.2-5.2) g/dL Globulin 2.6 (2-4) g/dL Albumin/Globulin Ratio 1.5 (1-3) Lipase < 10 L (11.0-82.0) U/L Microbiology and Other Data: Microbiology 08/24/19 05:15 Urine Culture - Final Urine Assess/Plan/Problems-Billing Assessment: - Patient Problems (1) SBO (small bowel obstruction) Current Visit: No Status: Acute Code(s): K56.609 - UNSP INTESTNL OBST, UNSP TO PARTIAL VERSUS COMPLETE OBST SNOMED Code(s): 943180139 Comment: - continue reports mild tenderness to left abd around colostomy site and mild bloating - tolerating sips of clears well- no nausea or vomiting - will advance to clear liquid diet as per surgery - CT of the Abd/pelvis with contrast- partial obstruction - repeat CBC, CMP today , prealbumin (2) Hyponatremia Current Visit: Yes Status: Acute Code(s): E87.1 - HYPO-OSMOLALITY AND HYPONATREMIA SNOMED Code(s): 02957910 Comment: improved - will continue d5 1/2ns with 20 meq of KCL - repeat BMP in the AM (3) DVT prophylaxis Current Visit: No Status: Acute Code(s): Z29.9 - ENCOUNTER FOR PROPHYLACTIC MEASURES, UNSPECIFIED SNOMED Code(s): 858092807 Comment: farshad (4) Full code status Current Visit: No Status: Acute Code(s): Z78.9 - OTHER SPECIFIED HEALTH STATUS SNOMED Code(s): 574495383 Status and Disposition: inpatient
[2019-08-26 10:44] LABS: Albumin 3.3 g/dL (3.2-5.2); Albumin/Globulin Ratio 1.3 (1-3); BUN/Creatinine Ratio 3.3 (8-20); Calcium 8.2 mg/dL (8.6-10.3); EGFR African American 154.7 (>60); EGFR Non-African American 127.8 (>60); Globulin 2.5 g/dL (2-4); Potassium 3.9 mmol/L (3.5-5.0); Total Bilirubin 0.3 mg/dL (0.2-1.0); Total Protein 5.8 g/dL (6.4-8.9)
--- NOTE | 2019-08-26 11:27 | PN ---
Progress Note - Progress Note Date of Service: 08/26/19 Note: No acute issues overnight. Continues to have liquid stool in colostomy but no air. Reports discomfort and bloating around the colostomy and lower abdomen but denies pain. Denies chest pain or SOB. Has been walking. CT abd/pelv yesterday showed oral contrast through small bowel and into distal colon. Small bowel remains dilated. Vital Signs - 12 hr Temp Pulse Resp BP Pulse Ox 08/26/19 11:07 97.5 F 73 16 110/58 98 08/26/19 08:00 18 08/26/19 07:56 97.9 F 64 18 112/63 97 08/26/19 03:18 97.8 F 61 18 121/54 97 08/26/19 03:15 97.8 F 60 18 121/54 97 08/25/19 23:25 98.4 F 71 18 126/66 97 Intake & Output 08/25/19 08/26/19 08/26/19 22:59 06:59 14:59 Intake Total 995 570 Output Total 450 550 175 Balance -450 445 395 Intake: IV Fluids 995 D5W 1/2 NS 995 Oral 570 Output: Urine 0 Urostomy 450 450 Colostomy 100 175 General: NAD CV: RRR Resp: Clear to auscultation Abdomen: Soft, nondistended, mild tenderness to palpation around colostomy. No rebound or guarding. Stomas are pink. Clear urine in urostomy bag. No stool or air in colostomy bag. Extremities: Warm, no pedal edema Neuro: Alert and oriented x3. Moves all extremities equally. Psych: Normal affect Laboratory Results - last 24 hr 08/26/19 08/26/19 09:33 09:33 WBC 4.2 RBC 4.03 L Hgb 12.3 L Hct 35 L MCV 88 MCH 31 MCHC 35 RDW 13 Plt Count 339 MPV 6.5 L Neut % (Auto) 78.6 Lymph % (Auto) 10.5 [place] % (Auto) 8.7 Eos % (Auto) 1.6 Baso % (Auto) 0.6 Absolute Neuts (auto) 3.3 Absolute Lymphs (auto) 0.4 L Absolute Monos (auto) 0.4 Absolute Eos (auto) 0.1 Absolute Basos (auto) 0.0 Absolute Nucleated RBC 0.0 Nucleated RBC % 0.0 Sodium 136 Potassium 3.9 Chloride 103 Carbon Dioxide 28 Anion Gap 5 BUN 2 L Creatinine 0.61 L Est GFR ( Amer) 154.7 Est GFR (Non-Af Amer) 127.8 BUN/Creatinine Ratio 3.3 L Glucose 102 H Calcium 8.2 L Total Bilirubin 0.30 AST 10 L ALT 12 Alkaline Phosphatase 64 Total Protein 5.8 L Albumin 3.3 Globulin 2.5 Albumin/Globulin Ratio 1.3 78M with partial small bowel obstruction. I reviewed the CT scan with Dr Maria in radiology. There may be a transition point in the right pelvis but the oral contrast does pass through small bowel and colon past splenic flexure. The colostomy site looks normal without evidence of obstruction at the stoma. I discussed with the patient that he may eventually need surgery, and there could be a high risk for bowel or ureter injury. It is difficult to predict how dense the adhesions will be and how likely a complication will occur. I would like to continue conservative management, and the patient is in agreement. -Trial clear liquid diet. Patient cautioned to stop drinking if he develops nausea/vomiting/increased pain. Try Ensure clear. Possibly advance to full liquids later today or tomorrow. Saline lock IVF when tolerating liquids. -Encourage ambulation.
[2019-08-26] MEDS: Enoxaparin(*) 40 MG/0.4 ML SYR SUBCUT SCH (12:27)
[2019-08-27 06:16] LABS: BUN/Creatinine Ratio 4.9 (8-20); EGFR African American 154.7 (>60); EGFR Non-African American 127.8 (>60)
--- NOTE | 2019-08-27 08:02 | PN ---
Progress Note - Progress Note Date of Service: 08/27/19 Note: Reports he passed a large amount of gas and continues to have liquid stool. He feels much better this morning. The abdominal discomfort and bloating have almost resolved. Denies chest pain, SOB. Vital Signs - 12 hr Temp Pulse Resp BP Pulse Ox 08/27/19 03:27 97.7 F 66 17 113/59 99 08/26/19 23:23 97.8 F 65 16 118/65 98 Intake & Output 08/26/19 08/27/19 08/27/19 22:59 06:59 14:59 Intake Total 2210 500 Output Total 800 1350 Balance 1410 -850 Intake: IV Fluids 1470 D5W 1/2 NS 1470 Oral 740 500 Output: Urine 125 Urostomy 375 1350 Colostomy 300 General: NAD Abdomen: Soft, nondistended, minimal tenderness to palpation inferior to the colostomy site. No air or stool in colostomy bag. Urostomy bag with clear urine. Stomas are pink. Neuro: Alert, oriented x3. Moves all extremities equally. Psych: Normal affect Laboratory Results - last 24 hr 08/26/19 08/26/19 08/27/19 09:33 09:33 05:24 WBC 4.2 RBC 4.03 L Hgb 12.3 L Hct 35 L MCV 88 MCH 31 MCHC 35 RDW 13 Plt Count 339 MPV 6.5 L Neut % (Auto) 78.6 Lymph % (Auto) 10.5 [place] % (Auto) 8.7 Eos % (Auto) 1.6 Baso % (Auto) 0.6 Absolute Neuts (auto) 3.3 Absolute Lymphs (auto) 0.4 L Absolute Monos (auto) 0.4 Absolute Eos (auto) 0.1 Absolute Basos (auto) 0.0 Absolute Nucleated RBC 0.0 Nucleated RBC % 0.0 Sodium 136 137 Potassium 3.9 4.0 Chloride 103 104 Carbon Dioxide 28 29 Anion Gap 5 4 BUN 2 L 3 L Creatinine 0.61 L 0.61 L Est GFR ( Amer) 154.7 154.7 Est GFR (Non-Af Amer) 127.8 127.8 BUN/Creatinine Ratio 3.3 L 4.9 L Glucose 102 H 90 Calcium 8.2 L 8.0 L Total Bilirubin 0.30 AST 10 L ALT 12 Alkaline Phosphatase 64 Total Protein 5.8 L Albumin 3.3 Globulin 2.5 Albumin/Globulin Ratio 1.3 Prealbumin 10 L A&P 78M with partial SBO now appears to be resolving. -Advance to full liquids as tolerated. Discussed with patient that I recommended he stay on full liquids for 5-7 days at least before advancing to soft/regular diet. -From surgical standpoint, could be discharged home later this afternoon if tolerating full liquids. Follow up in surgery clinic prn.
[2019-08-27] MEDS: Enoxaparin(*) 40 MG/0.4 ML SYR SUBCUT SCH (12:12)
[2019-08-27 15:36] VITALS: BP 121/68
--- NOTE | 2019-08-28 01:14 | DS ---
DISCHARGE SUMMARY: DATE OF ADMISSION: 08/23/19 DATE OF DISCHARGE: 08/27/19 PROVIDER: Corrie Vega NP. PRIMARY CARE PROVIDER: Dr. Mccann. ATTENDING PHYSICIAN WHILE IN THE HOSPITAL: Jalil Darby MD * (dictated by Corrie Vega NP). PRIMARY DIAGNOSIS: Partial small bowel obstruction, Severe malnutrition, Hyponatremia. SECONDARY DIAGNOSES: History of colorectal cancer, status post extensive surgery with rectum, bladder, prostate, appendix removed and colostomy and urostomy. STUDIES COMPLETED WHILE IN THE HOSPITAL: He had an abdominal x-ray on 08/23/19 , small bowel obstruction. He had a chest x-ray, radiologist's impression: Stigmata of obstructive lung disease and probably pulmonary arterial hypertension, mild linear atelectasis in the left mid to lower lung zone without gross change accounting for differences in technique. He had a CT of the abdomen and pelvis, radiologist's impression: There is distention and mild dilation of the loops of the small bowel. Oral contrast reaches the colon, extending to the level of the colostomy. The differential includes partial or intermittent small bowel obstruction, status post distal colectomy, status post cystectomy, and prostatectomy with ileal conduit. Small left greater than right bilateral pleural effusions. DISCHARGE MEDICATIONS: No new home medications. Continued home medications: None. HISTORY OF PRESENT ILLNESS AND HOSPITAL COURSE: Mr. Xavier is a 78-year-old male with a past medical history of colorectal cancer with extensive surgery resulting in a urostomy and colostomy, who presented to the emergency room initially with complaints of nausea and vomiting, found to have a small bowel obstruction. The patient was recently admitted for the same from 08/16/19 to . The patient was brought in to the hospital. He was monitored. He initially was placed on n.p.o. diet and advanced to clear liquids. He had a CT of the abdomen and pelvis, which showed a partial small bowel obstruction, possibly intermittent. The patient's diet was advanced. He was able to tolerate full liquids. He is passing gas. His bloating and left-sided abdominal pain resolved. The patient is tolerating liquids without any nausea or vomiting. He was seen in consultation by Surgery who has recommended a full liquid diet for 5 to 7 days and follow up with his primary care as an outpatient. At this time, Surgery has cleared him for discharge. The patient is feeling back to his baseline and is stable for discharge home at this time. REVIEW OF SYSTEMS: The patient denies any fever or chills. Denies any chest pain or shortness of breath. Denies any nausea, vomiting, diarrhea, or abdominal pain. He denies any pain with urination or right-sided pain around his urostomy. PHYSICAL EXAMINATION: General: At this time, Mr. Xavier is alert and oriented , resting in his hospital bed, he is in no acute distress. Vital Signs: Blood pressure 121/68, heart rate 69, respirations 16, O2 saturation 98%, temperature was 98.2. HEENT: Head is atraumatic, normocephalic. Eyes: EOMs are intact. Sclerae anicteric and not pale. Oral mucosa is moist. Neck is supple. Lungs are clear to auscultation bilaterally. No wheezes, rales, or rhonchi. Cardiac : S1, S2. Regular rate and rhythm. No murmurs, rubs, or gallops. Abdomen is soft. He does have liquid stool from his colostomy. His urostomy is draining without difficulty, medium yellow urine. Extremities: He is able to move all 4 extremities. There is no clubbing or cyanosis. Neurologic: He is awake, alert, oriented x3. Speech is clear. Thought process is intact. Skin is intact. At this time, Mr. Xavier is stable for discharge home. DISCHARGE PLAN: Mr. Xavier will be discharged back home. 1. Partial small bowel obstruction. The patient did have a partial small bowel obstruction that resolved with bowel rest. We initiated diet, he has been able to tolerate clear liquids and was advanced to full liquids and tolerating the diet without difficulty. He was seen in consultation by Surgery who recommended slow progression of his diet and they have recommended 5 to 7 days of a full liquid diet. The patient can then advance to a soft diet slowly. This was reviewed with the patient. The patient should follow up with his primary care provider in 4 to 7 days. He should follow up with Surgery Dr. Arana as needed. The patient was instructed to return to the emergency room for any fever, chills, nausea, vomiting, or several abdominal pain, decreased output from his colostomy, or any other concerning symptoms. 2. Hyponatremia. The patient was hyponatremic when he came in. I suspect this is related to his dehydration and vomiting. He was given IV fluids and his hyponatremia resolved during this hospitalization. He also did have mild hypokalemia. Again, this was repleted and resolved during this hospitalization. 3. Severe malnutrition. Likely related to decreased intake as a result for his partial small bowel obstruction. Encourage ensure shakes as tolerated. Will need to advance diet slowly. The patient was instructed to return to the emergency room for any chest pain, shortness of breath, nausea, vomiting, abdominal pain, decreased colostomy output, or any other concerning symptoms. The patient and his verbalized understanding. CONDITION ON DISCHARGE: Improved. DISPOSITION ON DISCHARGE: Home. TIME SPENT: Time spent on this discharge was 45 minutes, greater than half that time was spent at the bedside reviewing discharge instructions and plans. I have discussed this with my attending Dr. Jalil Darby; he is in agreement with my plan. CORRIE VEGA, POORNIMA [id number]/[facility] #: [id number] SONAL
== END 2019-08-27 17:00 | disposition home or self-care (01) | DRG 388 ==
LOC: ED 08:58 → SSU 12:38
PROVIDERS: ADMIT Internal Medicine; ATTEND Internal Medicine
DX: K56.600 Partial intestinal obstruction, unspecified as to cause (principal); E43 Unspecified severe protein-calorie malnutrition; E87.1 Hypo-osmolality and hyponatremia; J90 Pleural effusion, not elsewhere classified; Z68.1 Body mass index [BMI] 19.9 or less, adult; E11.9 Type 2 diabetes mellitus without complications; M19.042 Primary osteoarthritis, left hand; E83.42 Hypomagnesemia; E86.0 Dehydration; E87.6 Hypokalemia; M19.041 Primary osteoarthritis, right hand; H91.92 Unspecified hearing loss, left ear; Z85.038 Personal history of other malignant neoplasm of large intestine; Z85.048 Personal history of other malignant neoplasm of rectum, rectosigmoid junction, and anus; Z90.6 Acquired absence of other parts of urinary tract; Z93.3 Colostomy status; Z56.0 Unemployment, unspecified; Z90.79 Acquired absence of other genital organ(s); Z90.49 Acquired absence of other specified parts of digestive tract; Z87.891 Personal history of nicotine dependence
CPT/HCPCS: 36415; 71046; 74019; 74177; 80048; 80053; 81003; 81015; 83605; 83690; 83735; 84134; 85025; 85610; 86140; 87086; 96365; 96375; 99284; A9270-GY; J1650; J2405; J3475; Q9967

== ENCOUNTER 2019-08-28 14:54 | Emergency (ER) | payer MEDICARE ==
[2019-08-28] MEDS ORDERED: Ondansetron INJ* 2 MG/ML VIAL IV ONE (15:19)
[2019-08-28] MEDS ORDERED: NS 0.9% 1000 ML** 1,000 ML IV ONE (15:19)
--- NOTE | 2019-08-28 15:27 | ED ---
Abdominal Pain/Male - HPI Summary HPI Summary: 78-year-old male with a significant past medical history of colon rectal cancer with extensive surgery including colostomy and urostomy, recently diagnosed small bowel obstruction on 08/25/2019 (3 days prior, recently discharged from the hospital yesterday) presents to the emergency department today complaining of a 2 out of 10 lower abdominal pain as well as nausea with associated vomiting. Patient states he has had one episode of vomiting every hour since this afternoon. Patient states he has had decreased PO intake. Patient states he lives at home alone. Patient otherwise feels well and denies fevers, chest pain, shortness of breath, recent travel, diarrhea. - History of Current Complaint Chief Complaint: EDAbdPain Stated Complaint: GENERAL ILLNESS PER EMS Time Seen by Provider: 08/28/19 15:19 Hx Obtained From: Patient Onset/Duration: Gradual Onset Timing: Constant Severity Initially: Mild Severity Currently: Mild Pain Intensity: 1 Pain Scale Used: 0-10 Numeric Location: Diffuse Radiates: No Character: Cramping - Allergies/Home Medications Allergies/Adverse Reactions: Allergies Allergy/AdvReac Type Severity Reaction Status Date / Time No Known Allergies Allergy Verified 08/23/19 09:10 Home Medications: Home Medications Ondansetron ODT TAB* [Zofran 4 MG Odt TAB*] 4 mg PO Q6H PRN #20 tab.odt [Rx] PMH/Surg Hx/FS Hx/Imm Hx Endocrine/Hematology History: Denies: Hx Diabetes Cardiovascular History: Denies: Hx Hypertension GI History: Reports: Other GI Disorders - SBO 08/2019. colorectal cancer History: Reports: Other Problems/Disorders - Bladder removal/urostomy Denies: Hx Renal Disease Musculoskeletal History: Reports: Hx Arthritis - bilat hands Sensory History: Reports: Hx Contacts or Glasses - Did not bring, Hx Hearing Problem Denies: Hx Hearing Aid Opthamlomology History: Reports: Hx Contacts or Glasses - Did not bring - Cancer History Cancer Type, Location and Year: colorectal cancer - Surgical History Surgery Procedure, Year, and Place: colectomy for colon/rectal ca 1994. colostomy bag. Cystectomy, urostomy bag. Prostatectomy. Appendectomy Hx Anesthesia Reactions: No - Immunization History Date of Influenza Vaccine: 02/2019 Infectious Disease History: No Infectious Disease History: Denies: History Other Infectious Disease, Traveled Outside the [place] in Last 30 Days - Family History Known Family History: Positive: Other - cancer Negative: Hypertension, Diabetes - Social History Alcohol Use: None Hx Substance Use: No Substance Use Type: Reports: None Hx Tobacco Use: Yes Smoking Status (MU): Light Every Day Tobacco Smoker Review of Systems Constitutional: Negative Eyes: Negative ENT: Negative Cardiovascular: Negative Respiratory: Negative Positive: Abdominal Pain, Nausea. Negative: Vomiting, Diarrhea Genitourinary: Negative Musculoskeletal: Negative Skin: Negative Neurological/Mental Status: Negative Psychological: Normal All Other Systems Reviewed And Are Negative: Yes Physical Exam - Summary Physical Exam Summary: Patient is in no acute distress. Inspection reveals colostomy bag and urostomy bags. These both appear to be working with no evidence of secondary infection. Abdomen is benign with no rebound tenderness or guarding. Patient complains of mild tenderness to palpation of the lower abdomen. Triage Information Reviewed: Yes Vital Signs On Initial Exam: Initial Vitals Pulse Pulse Ox 110 87 08/28/19 15:13 08/28/19 15:13 Vital Signs Reviewed: Yes Appearance: Positive: Well-Appearing, No Pain Distress, Well-Nourished Skin: Positive: Warm, Skin Color Reflects Adequate Perfusion Eyes: Positive: EOMI, ADRIA ENT: Positive: Hearing grossly normal Respiratory/Lung Sounds: Positive: Clear to Auscultation, Breath Sounds Present Cardiovascular: Positive: RRR, S1, S2 Abdomen Description: Positive: Soft. Negative: CVA Tenderness (R), CVA Tenderness (L), Distended, Guarding Bowel Sounds: Positive: Present Musculoskeletal: Positive: Strength/ROM Intact Neurological: Positive: Sensory/Motor Intact, Alert, Oriented to Person Place, Time, Normal Gait, Facial Symmetry, Speech Normal Psychiatric: Positive: Normal, Affect/Mood Appropriate AVPU Assessment: Alert Procedures - Sedation Patient Received Moderate/Deep Sedation with Procedure: No Diagnostics - Vital Signs Vital Signs Temp Pulse Resp BP Pulse Ox 08/28/19 15:18 98.7 F 100 18 96/62 90 08/28/19 15:15 110 96/62 86 08/28/19 15:13 110 87 - Laboratory Result Diagrams: 08/28/19 15:31 08/28/19 15:31 Lab Statement: Any lab studies that have been ordered have been reviewed, and results considered in the medical decision making process. Abdominal Pain Male Course/Dx - Course Course Of Treatment: Patient was evaluated in the emergency department today for abdominal pain and nausea. Vitals stable, patient afebrile. Laboratory studies returned with no evidence of leukocytosis with a white blood cell count of 9.2 although there is a mildly elevated CRP at 11.28. There is mild anemia noted however this is better than his baseline. Abdominal x-ray was obtained to evaluate patient's known small bowel obstruction which shows evidence of dilated loops of small bowel in the left upper quadrant measuring up to 4.1 cm in diameter. This is not significantly changed when compared to prior abdominal CT scan done 3 days ago. Patient was given Zofran and trialed with by mouth fluids. Patient did well with by mouth fluids with no episodes of emesis. Patient agreed with plan and was discharged home with outpatient follow -up with prescription for antiemetic. Patient is to follow-up with surgery for further evaluation of small bowel obstruction as an outpatient. - Diagnoses Differential Diagnosis/HQI/PQRI: Bowel Obstruction, Constipation Provider Diagnoses: Small bowel obstruction, Nausea Discharge ED - Sign-Out/Discharge Documenting (check all that apply): Patient Departure - Discharge Plan Condition: Stable Disposition: HOME Prescriptions: Ondansetron ODT TAB* [Zofran 4 MG Odt TAB*] 4 mg PO Q6H PRN #20 tab.odt PRN Reason: Nausea Patient Education Materials: Clear Liquid Diet (ED), Bowel Obstruction (ED) Referrals: Felicia Mccann MD [Primary Care Provider] - Leny Arana MD [Medical Doctor] - 3 Days Additional Instructions: Please take antinausea medicine as directed. Please slowly returned to a normal diet starting with clear liquids. Please follow up with Dr. Arana, surgery for further evaluation and management. Please return to this emergency Department immediately if you develop any new or worsening symptoms. - Billing Disposition and Condition Condition: STABLE Disposition: Home - Attestation Statements Provider Attestation: I was available for consult. This patient was seen by the [facility]. The patient was not presented to, seen by, or examined by me. Chas Salomon MD
--- OUTSIDE RECORDS SUMMARY | 2019-08-28 15:28 | XMS REPORT | Continuity of Care Document ---
:1940 External Reference #:[id number] Author Name Elmira Cortes D.O. (transmitted by agent of provider Analy Cristina) Address [address] [place] [address] Care Team Providers Name Role Phone Remedios Caal MD - Hematology & Care Team Information Theatrical Trouper Oncology Joaquin Stroud MD - Gastroenterology Care Team Information Theatrical Trouper [phone] Felicia Mccann MD - Internal Care Team Information Theatrical Trouper [phone] Medicine Problems Active Problems Provider Date Generalized osteoarthritis of the hand Janee Montelongo M.D. Onset: 03/15/2013 Carcinoma in situ of colon Janee Montelongo M.D. Onset: 03/15/2013 Social History Type Date Description Comments Sex Unknown ETOH Use Occasionally consumes alcohol Tobacco Use Start: Unknown End: Patient is a former 2 packs a week for Unknown smoker 10 years , recently quilt 02/26 Recreational Drug Use Denies Drug Use Smoking Status Reviewed: 11/10/18 Patient is a former 2 packs a week for smoker 10 years , recently quilt 02/26 Exercise Type/Frequency Exercises regularly Allergies, Adverse Reactions, Alerts Description No Known Drug Allergies Medications Active Medications SIG Qnty Indications Ordering Date Provider [place] 2-pc Change as 3Boxes C18.9 Urbano Steven NP 09/13/2018 Drainable Pouch/Barrier needed Film/Flange 2-3/4" Misc Z93.3 Urostomy Pouch 2 3/4" Change as needed 3Boxes C18.9 Urbano Steven NP 2018 [place] Lock 2 3/4 Change as needed 12Boxes C18.9 Urbano Steven, POORNIMA Z93.3 Stomahesive Paste use as needed 3Tubes C18.9 Urbano Steven NP 09/13/2018 Z93.3 Immunizations CPT Code Status Date Vaccine Reaction Lot # [id number] Given 04/13/2019 Influenza Virus Vaccine, Quadrivalent, Split, Preservative Free [id number] Given 04/03/2018 Influenza Virus Vaccine, Quadrivalent, Split, Preservative Free 16823 Given 07/17/2017 Fluzone High Dose 11704 Given 11/05/2016 Pneumococcal Conjugate noimmedate reaction [id number] Vaccine 13 Valent For noted, pt tolerated Intramuscular Use well ... hh Q2039 Given 04/03/2016 Flu Vaccine NOS 65131 Given 03/15/2013 Flu Vaccine Split Virus [id number] Preservative Free For Indiv 3Yr Older 73186 Given 09/26/2008 Pneumonia Vaccine Vital Signs Date Vital Result Comment 11/10/2018 8:45am Height 64.50 inches 5'4.50" Weight 125.00 lb Heart Rate 69 /min BP Systolic 109 mmHg BP Diastolic 67 mmHg Body Temperature 97.5 F O2 % BldC Oximetry 96 % BMI (Body Mass Index) 21.1 kg/m2 11/06/2017 9:40am Height 64.25 inches 5'4.25" Weight 128.75 lb Heart Rate 83 /min BP Systolic 112 mmHg BP Diastolic 70 mmHg Body Temperature 97.1 F O2 % BldC Oximetry 95 % BMI (Body Mass Index) 21.9 kg/m2 Results Test Acquired Date Facility Test Result H/L Range Note Comp Metabolic 08/23/2019 [facility] Sodium 131 mmol/L Low 135 -145 Panel 101 [place] [address] [phone] Potassium 4.1 mmol/L Normal 3.5-5.0 Chloride 93 mmol/L Low 101-111 Co2 Carbon Dioxide 29 mmol/L Normal 22-32 Anion Gap 9 mmol/L Normal 2-11 Glucose 113 mg/dL High 70-100 Blood Urea Nitrogen 16 mg/dL Normal 6-24 Creatinine 1.04 mg/dL Normal 0.67-1.17 BUN/Creatinine Ratio 15.4 Normal 8-20 Calcium 8.4 mg/dL Low 8.6-10.3 Total Protein 6.5 g/dL Normal 6.4-8.9 Albumin 3.9 g/dL Normal 3.2-5.2 Globulin 2.6 g/dL Normal 2-4 Albumin/Globulin Ratio 1.5 Normal 1-3 Total Bilirubin 1.00 mg/dL Normal 0.2-1.0 Alkaline Phosphatase 75 U/L Normal 34-104 Alt 16 U/L Normal 7-52 Ast 16 U/L Normal 13-39 Egfr Non- 69.1 >60 Egfr 83.6 >60 1 Laboratory test 08/23/2019 [facility] Magnesium 1.4 mg/dL Low 1.9-2.[address] [place] [address] [phone] Lipase < 10 U/L Low 11.0-82.0 C Reactive Protein 25.72 mg/L High <8.01 Lactic Acid 1.4 mmol/L Normal 0.5-2.0 2 CBC Auto 08/23/2019 [facility] White Blood 12.8 10^3/uL High 3.5-10.[address] [place] [address] [phone] Red Blood Count 4.55 10^6/uL Normal 4.18-5.48 Hemoglobin 13.8 g/dL Low 14.0-18.0 Hematocrit 40 % Low 42-52 Mean Corpuscular Volume 87 fL Normal 80-94 Mean Corpuscular Hemoglobin 30 pg Normal 27-31 Mean Corpuscular HGB Conc 35 g/dL Normal 31-36 Red Cell Distribution Width 13 % Normal 10-15 Platelet Count 333 10^3/uL Normal 150-450 Mean Platelet Volume 6.7 fL Low 7.4-10.4 Abs Neutrophils 11.6 10^3/uL High 1.5-7.7 Abs Lymphocytes 0.3 10^3/uL Low 1.0-4.8 Abs Monocytes 0.8 10^3/uL Normal 0-0.8 Abs Eosinophils 0.0 10^3/uL Normal 0-0.6 Abs Basophils 0.0 10^3/uL Normal 0-0.2 Abs Nucleated RBC 0.0 10^3/uL Granulocyte % 90.9 % Lymphocyte % 2.0 % Monocyte % 6.6 % Eosinophil % 0.1 % Basophil % 0.4 % Nucleated Red Blood Cells % 0.0 Comp Metabolic Panel 08/15/2019 [facility] Sodium 130 mmol/L Low 135-145 [address] [place] [address] [phone] Potassium 4.3 mmol/L Normal 3.5-5.0 Chloride 93 mmol/L Low 101-111 Co2 Carbon Dioxide 28 mmol/L Normal 22-32 Anion Gap 9 mmol/L Normal 2-11 Glucose 100 mg/dL Normal 70-100 Blood Urea Nitrogen 11 mg/dL Normal 6-24 Creatinine 0.85 mg/dL Normal 0.67-1.17 BUN/Creatinine Ratio 12.9 Normal 8-20 Calcium 9.4 mg/dL Normal 8.6-10.3 Total Protein 7.9 g/dL Normal 6.4-8.9 Albumin 4.7 g/dL Normal 3.2-5.2 Globulin 3.2 g/dL Normal 2-4 Albumin/Globulin Ratio 1.5 Normal 1-3 Total Bilirubin 1.10 mg/dL High 0.2-1.0 Alkaline Phosphatase 87 U/L Normal 34-104 Alt 16 U/L Normal 7-52 Ast 21 U/L Normal 13-39 Egfr Non- 87.2 >60 Egfr 105.5 >60 3 Laboratory test 08/15/2019 [facility] Lipase 26 U/L Normal 11.0-82.[address] [place] [address] [phone] CBC Auto Diff 08/15/2019 [facility] White Blood 8.4 Normal 3.5 -10.8 [address] [facility] Count 10^3/[place] [address] [phone] Red Blood Count 5.27 10^6/uL Normal 4.18-5.48 Hemoglobin 16.0 g/dL Normal 14.0-18.0 Hematocrit 47 % Normal 42-52 Mean Corpuscular Volume 88 fL Normal 80-94 Mean Corpuscular Hemoglobin 30 pg Normal 27-31 Mean Corpuscular HGB Conc 35 g/dL Normal 31-36 Red Cell Distribution Width 13 % Normal 10-15 Platelet Count 359 10^3/uL Normal 150-450 Mean Platelet Volume 6.9 fL Low 7.4-10.4 Abs Neutrophils 7.2 10^3/uL Normal 1.5-7.7 Abs Lymphocytes 0.4 10^3/uL Low 1.0-4.8 Abs Monocytes 0.7 10^3/uL Normal 0-0.8 Abs Eosinophils 0.0 10^3/uL Normal 0-0.6 Abs Basophils 0.0 10^3/uL Normal 0-0.2 Abs Nucleated RBC 0.0 10^3/uL Granulocyte % 85.5 % Lymphocyte % 5.3 % Monocyte % 8.6 % Eosinophil % 0.4 % Basophil % 0.2 % Nucleated Red Blood Cells % 0.0 1 Because ethnic data is not always readily available, this report includes an eGFR for both -Americans and non- Americans. The National Kidney Disease Education Program (NKDEP) does not endorse the use of the MDRD equation for patients that are not between the ages of 18 and 70, are , have extremes of body size, muscle mass, or nutritional status, or are non- or non-. According to the National Kidney Foundation, irrespective of diagnosis, the stage of the disease is based on the level of kidney function: Stage Description GFR(mL/min/1.73 m(2)) 1 Kidney damage with normal or decreased GFR 90 2 Kidney damage with mild decrease in GFR 60-89 3 Moderate decrease in GFR 30-59 4 Severe decrease in GFR 15-29 5 Kidney failure <15 (or dialysis) 2 [facility] Severe Sepsis and Septic Shock Management Bundle Measure requires all lactic acids initially measuring >2.0 mmol/L be repeated. 3 Because ethnic data is not always readily available, this report includes an eGFR for both -Americans and non- Americans. The National Kidney Disease Education Program (NKDEP) does not endorse the use of the MDRD equation for patients that are not between the ages of 18 and 70, are , have extremes of body size, muscle mass, or nutritional status, or are non- or non-. According to the National Kidney Foundation, irrespective of diagnosis, the stage of the disease is based on the level of kidney function: Stage Description GFR(mL/min/1.73 m(2)) 1 Kidney damage with normal or decreased GFR 90 2 Kidney damage with mild decrease in GFR 60-89 3 Moderate decrease in GFR 30-59 4 Severe decrease in GFR 15-29 5 Kidney failure <15 (or dialysis) Procedures Date Code Description Status 05/18/2018 [id number] Colonoscopy Completed 04/25/2013 [id number] Colonoscopy Completed 04/20/2013 [id number] Colonoscopy Completed Medical Devices Description No Information Available Encounters Type Date Location Provider Dx Diagnosis Office Visit 08/19/2019 Surgical Jalil Kingsley K56.609 Unsp intestnl 7:00a [facility] obst, unsp as to partial versus complete obst 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 08/17/2019 K56.609 Unspecified intestinal obstruction, TERESO Patricia unspecified as to partial versus complete obstruction 08/17/2019 K56.609 Unspecified intestinal obstruction, Elmira Cortes D.O. 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 08/16/2019 K56.609 Unspecified intestinal obstruction, Pepe Douglass MD unspecified as to partial versus complete obstruction 08/16/2019 K56.609 Unspecified intestinal obstruction, Elmira Cortes D.O. 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 Plan of Treatment Future Appointment(s):11/15/2019 11:00 am - [facility]rb[facility] Steven [facility] - Urbano Steven NPZ00.00 Encounter for general adult medical examination without abnoComments:VACCINES:Flu shot recommended every year in the fall.Your last tetanus vaccine was in 2008. You willbe due for a booster if you sustain a significant injury.Pneumonia vaccines: You received the Pneumovax in 2008 and the Prevnar in 2017. No further pneumonia vaccines recommended. Shingles: Shingrix recommended at 60. Check with your insurance and see if they will cover. If you would like this vaccineyou can get it at the pharmacy.SCREENING:Colonoscopy: Last in 2018. 5 year follow up with GI was recommended. Screening for glaucoma: every 2 years unless otherwise instructed by your eye doctor Cholesterol and fasting blood sugar yearly.Follow up:1 yr AWV and PRNH54.2x11 Low vision right eye category 1, low vision left eye categorReferral:Joaquin Kim MD, Ophthalmology Functional Status Description No Information Available Mental Status Description No Information Available Referrals Description No Information Available
--- OUTSIDE RECORDS SUMMARY | 2019-08-28 15:28 | XMS REPORT | Continuity of Care Document ---
:1940 External Reference #:[id number] Author Name Pepe Douglass MD (transmitted by agent of provider Jeanette Castillo) Address [address] [place] [address] Care Team Providers Name Role Phone Remedios Caal MD - Hematology & Care Team Information Product Support Sales Representative [phone] Oncology Joaquin Stroud MD - Gastroenterology Care Team Information Product Support Sales Representative Felicia Mccann MD - Internal Care Team Information Product Support Sales Representative Medicine Problems Active Problems Provider Date Generalized [...] needed 3Boxes C18.9 Urbano Steven NP 2018 [place] Lock 2 3/4 Change as needed 12Boxes C18.9 Urbano Steven, POORNIMA Z93.3 Stomahesive Paste use as needed 3Tubes C18.9 Urbano Steven, POORNIMA 09/13/2018 Z93.3 Immunizations CPT Code Status Date Vaccine Reaction Lot # [id number] Given 04/13/2019 Influenza Virus Vaccine, Quadrivalent, Split, Preservative Free 60726 Given 04/03/2018 Influenza Virus Vaccine, Quadrivalent, Split, Preservative Free 86629 Given 07/17/2017 Fluzone High Dose 97996 Given 11/05/2016 Pneumococcal Conjugate noimmedate reaction [id number] Vaccine 13 Valent For noted, pt tolerated Intramuscular Use well ... hh Q2039 Given 04/03/2016 Flu Vaccine NOS 01998 Given 03/15/2013 Flu Vaccine Split Virus [id number] Preservative Free For Indiv 3Yr Older 93092 Given 09/26/2008 Pneumonia Vaccine Vital Signs Date [...] Result H/L Range Note Comp Metabolic 08/23/2019 [facility] Sodium 131 mmol/L Low 135 -145 Panel [address] [place] [address] [phone] Potassium 4.1 mmol/L Normal 3.5-5.0 Chloride 93 [...] Egfr 83.6 >60 1 Laboratory test 08/23/2019 [facility] Magnesium 1.4 mg/dL Low 1.9-2.[address] [place] [address] [phone] Lipase < 10 U/L Low 11.0-82.0 C Reactive Protein 25.72 mg/L High <8.01 Lactic Acid 1.4 mmol/L Normal 0.5-2.0 2 CBC Auto 08/23/2019 [facility] White Blood 12.8 10^3/uL High 3.5-10.[address] [place] [address] [phone] Red Blood Count 4.55 10^6/uL Normal 4.18-5.48 [...] Cells % 0.0 Comp Metabolic Panel 08/15/2019 [facility] Sodium 130 mmol/L Low 135-145 [address] [place] [address] [phone] Potassium 4.3 mmol/L Normal 3.5-5.0 Chloride 93 [...] Egfr 105.5 >60 3 Laboratory test 08/15/2019 [facility] Lipase 26 U/L Normal 11.0-82.0 finding [address] [place] [address] [phone] CBC Auto Diff 08/15/2019 [facility] White Blood 8.4 Normal 3.5 -10.[address] [facility] Count 10^3/[place] [address] [phone] Red Blood Count 5.27 10^6/uL Normal 4.18-5.48 [...] 5 Kidney failure <15 (or dialysis) 2 [facility] Severe Sepsis and Septic Shock Management [...] dialysis) Procedures Date Code Description Status 05/18/2018 [id number] Colonoscopy Completed 04/25/2013 [id number] Colonoscopy Completed 04/20/2013 [id number] Colonoscopy Completed Medical Devices Description No Information [...] Colostomy status Office Visit 08/17/2019 7:00a Surgical Jalil Kingsley K56.609 Unsp intestnl [facility] [...] Pepe Douglass MD 08/18/2019 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 08/17/2019 K56.609 Unspecified intestinal obstruction, TERESO Patricia [...] 11:00 am - Urbano Steven NP at [facility] Internal Medicine - [facility]11/10/2018 - Urbano Steven NPZ00.00 Encounter for general [...]
--- OUTSIDE RECORDS SUMMARY | 2019-08-28 15:28 | XMS REPORT | Continuity of Care Document ---
:1940 External Reference #:[id number] Author Name Jalil Mejia PA-C (transmitted by agent of provider Jeanette Castillo) Address [address] [place] [address] Care Team Providers Name Role Phone Remedios Caal MD - Hematology & Care Team Information Air Chipper [phone] Oncology Joaquin Stroud MD - Gastroenterology Care Team Information Air Chipper Felicia Mccann MD - Internal Care Team Information Air Chipper Medicine Problems Active Problems Provider Date Generalized [...] needed 3Boxes C18.9 Urbano Steven NP 2018 [place] Lock 2 3/4 Change as needed 12Boxes C18.9 Urbano Steven, POORNIMA Z93.3 Stomahesive Paste use as needed 3Tubes C18.9 Urbano Steven, POORNIMA 09/13/2018 Z93.3 Immunizations CPT Code Status Date Vaccine Reaction Lot # [id number] Given 04/13/2019 Influenza Virus Vaccine, Quadrivalent, Split, Preservative Free 35201 Given 04/03/2018 Influenza Virus Vaccine, Quadrivalent, Split, Preservative Free 26269 Given 07/17/2017 Fluzone High Dose 56000 Given 11/05/2016 Pneumococcal Conjugate noimmedate reaction [id number] Vaccine 13 Valent For noted, pt tolerated Intramuscular Use well ... hh Q2039 Given 04/03/2016 Flu Vaccine NOS 94637 Given 03/15/2013 Flu Vaccine Split Virus [id number] Preservative Free For Indiv 3Yr Older 09583 Given 09/26/2008 Pneumonia Vaccine Vital Signs Date [...] Result H/L Range Note Comp Metabolic 08/23/2019 [facility] Sodium 131 mmol/L Low 135 -145 Panel [address] [place] [address] [phone] Potassium 4.1 mmol/L Normal 3.5-5.0 Chloride 93 [...] Egfr 83.6 >60 1 Laboratory test 08/23/2019 [facility] Magnesium 1.4 mg/dL Low 1.9-2.[address] [place] [address] [phone] Lipase < 10 U/L Low 11.0-82.0 C Reactive Protein 25.72 mg/L High <8.01 Lactic Acid 1.4 mmol/L Normal 0.5-2.0 2 CBC Auto 08/23/2019 [facility] White Blood 12.8 10^3/uL High 3.5-10.[address] [place] [address] [phone] Red Blood Count 4.55 10^6/uL Normal 4.18-5.48 [...] Cells % 0.0 Comp Metabolic Panel 08/15/2019 [facility] Sodium 130 mmol/L Low 135-145 [address] [place] [address] [phone] Potassium 4.3 mmol/L Normal 3.5-5.0 Chloride 93 [...] Egfr 105.5 >60 3 Laboratory test 08/15/2019 [facility] Lipase 26 U/L Normal 11.0-82.0 finding [address] [place] [address] [phone] CBC Auto Diff 08/15/2019 [facility] White Blood 8.4 Normal 3.5 -10.8 [address] [facility] Count 10^3/[place] [address] [phone] Red Blood Count 5.27 10^6/uL Normal 4.18-5.48 [...] 5 Kidney failure <15 (or dialysis) 2 [facility] Severe Sepsis and Septic Shock Management Bundle [...] dialysis) Procedures Date Code Description Status 05/18/2018 [id number] Colonoscopy Completed 04/25/2013 [id number] Colonoscopy Completed 04/20/2013 [id number] Colonoscopy Completed Medical Devices Description No Information [...] Mejia PA-C 08/17/2019 Z93.3 Colostomy status Elmira Cotres D.O. 08/16/2019 K56.609 Unspecified intestinal obstruction, Pepe Douglass MD unspecified as to partial versus complete obstruction 08/16/2019 K56.609 Unspecified intestinal obstruction, Elmira Corets D.O. 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 Plan of Treatment Future Appointment(s):11/15/2019 11:00 am - Urbano Steven NP at [facility] Internal Medicine - [facility]11/10/2018 - Urbano Steven NPZ00.00 Encounter for [...]
--- OUTSIDE RECORDS SUMMARY | 2019-08-28 15:28 | XMS REPORT | Continuity of Care Document ---
:1940 External Reference #:[id number] Author Name Elmira Cortes D.O. (transmitted by agent of provider Analy Cristina) Address [address] [place] [address] Care Team Providers Name Role Phone Remedios Caal MD - Hematology & Care Team Information Systems Software Specialist Oncology Joaquin Stroud MD - Gastroenterology Care Team Information Systems Software Specialist Felicia Mccann MD - Internal Care Team Information Systems Software Specialist Medicine Problems Active Problems Provider Date Generalized [...] needed 3Boxes C18.9 Urbano Steven NP 2018 [place] Lock 2 3/4 Change as needed 12Boxes C18.9 Urbano Steven, POORNIMA Z93.3 Stomahesive Paste use as needed 3Tubes C18.9 Urbano Steven NP 09/13/2018 Z93.3 Immunizations CPT Code Status Date Vaccine Reaction Lot # [id number] Given 04/13/2019 Influenza Virus Vaccine, Quadrivalent, Split, Preservative Free 63687 Given 04/03/2018 Influenza Virus Vaccine, Quadrivalent, Split, Preservative Free 99502 Given 07/17/2017 Fluzone High Dose 24406 Given 11/05/2016 Pneumococcal Conjugate noimmedate reaction [id number] Vaccine 13 Valent For noted, pt tolerated Intramuscular Use well ... hh Q2039 Given 04/03/2016 Flu Vaccine NOS 14087 Given 03/15/2013 Flu Vaccine Split Virus [id number] Preservative Free For Indiv 3Yr Older 27253 Given 09/26/2008 Pneumonia Vaccine Vital Signs Date [...] Result H/L Range Note Comp Metabolic 08/23/2019 [facility] Sodium 131 mmol/L Low 135 -145 Panel [address] [place] [address] [phone] Potassium 4.1 mmol/L Normal 3.5-5.0 Chloride 93 [...] Egfr 83.6 >60 1 Laboratory test 08/23/2019 [facility] Magnesium 1.4 mg/dL Low 1.9-2.[address] [place] [address] [phone] Lipase < 10 U/L Low 11.0-82.0 C Reactive Protein 25.72 mg/L High <8.01 Lactic Acid 1.4 mmol/L Normal 0.5-2.0 2 CBC Auto 08/23/2019 [facility] White Blood 12.8 10^3/uL High 3.5-10.[address] [place] [address] [phone] Red Blood Count 4.55 10^6/uL Normal 4.18-5.48 [...] Cells % 0.0 Comp Metabolic Panel 08/15/2019 [facility] Sodium 130 mmol/L Low 135-145 [address] [place] [address] [phone] Potassium 4.3 mmol/L Normal 3.5-5.0 Chloride 93 [...] Egfr 105.5 >60 3 Laboratory test 08/15/2019 [facility] Lipase 26 U/L Normal 11.0-82.[address] [place] [address] [phone] CBC Auto Diff 08/15/2019 [facility] White Blood 8.4 Normal 3.5 -10.8 [address] [facility] Count 10^3/[place] [address] [phone] Red Blood Count 5.27 10^6/uL Normal 4.18-5.48 [...] 5 Kidney failure <15 (or dialysis) 2 [facility] Severe Sepsis and Septic Shock Management [...] dialysis) Procedures Date Code Description Status 05/18/2018 [id number] Colonoscopy Completed 04/25/2013 [id number] Colonoscopy Completed 04/20/2013 [id number] Colonoscopy Completed Medical Devices Description No Information Available Encounters Type Date Location Provider Dx Diagnosis Office Visit 08/19/2019 Surgical Jalil Kingsley K56.609 Unsp intestnl 7:00a [facility] obst, unsp as to partial versus complete obst 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 K56.609 Unsp intestnl Assoc,andreas Cortes D.O. 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 K56.609 Unsp intestnl Assoc,[facility] obst, unsp as Hospitalists to partial versus complete obst Z93.3 Colostomy status Office Visit 08/17/2019 7:00a Surgical Jalil Kingsley K56.609 Unsp intestnl [facility] obst, unsp as to partial versus complete obst Z93.3 Colostomy status [facility] Assoc,Puja Acuña[facility]ugo obst, unsp [...] 11:00 am - [facility] Urbano Steven NPZ00.00 Encounter for general [...]
--- OUTSIDE RECORDS SUMMARY | 2019-08-28 15:28 | XMS REPORT | Continuity of Care Document ---
:1940 External Reference #:[id number] Author Name Jalil Mejia PA-C (transmitted by agent of provider Jeanette Castillo) Address [address] [place] [address] Care Team Providers Name Role Phone Remedios Caal MD - Hematology & Care Team Information Leather Cleaner [phone] Oncology Joaquin Stroud MD - Gastroenterology Care Team Information Leather Cleaner Felicia Mccann MD - Internal Care Team Information Leather Cleaner [phone] Medicine Problems Active Problems Provider Date Generalized [...] needed 3Boxes C18.9 Urbano Steven NP 2018 [place] Lock 2 3/4 Change as needed 12Boxes C18.9 Urbano Steven, POORNIMA Z93.3 Stomahesive Paste use as needed 3Tubes C18.9 Urbano Steven, POORNIMA 09/13/2018 Z93.3 Immunizations CPT Code Status Date Vaccine Reaction Lot # [id number] Given 04/13/2019 Influenza Virus Vaccine, Quadrivalent, Split, Preservative Free 52019 Given 04/03/2018 Influenza Virus Vaccine, Quadrivalent, Split, Preservative Free 73975 Given 07/17/2017 Fluzone High Dose 06980 Given 11/05/2016 Pneumococcal Conjugate noimmedate reaction [id number] Vaccine 13 Valent For noted, pt tolerated Intramuscular Use well ... hh Q2039 Given 04/03/2016 Flu Vaccine NOS 86480 Given 03/15/2013 Flu Vaccine Split Virus [id number] Preservative Free For Indiv 3Yr Older 63120 Given 09/26/2008 Pneumonia Vaccine Vital Signs Date [...] Result H/L Range Note Comp Metabolic 08/23/2019 [facility] Sodium 131 mmol/L Low 135 -145 Panel [address] [place] [address] [phone] Potassium 4.1 mmol/L Normal 3.5-5.0 Chloride 93 [...] Egfr 83.6 >60 1 Laboratory test 08/23/2019 [facility] Magnesium 1.4 mg/dL Low 1.9-2.[address] [place] [address] [phone] Lipase < 10 U/L Low 11.0-82.0 C Reactive Protein 25.72 mg/L High <8.01 Lactic Acid 1.4 mmol/L Normal 0.5-2.0 2 CBC Auto 08/23/2019 [facility] White Blood 12.8 10^3/uL High 3.5-10.[address] [place] [address] [phone] Red Blood Count 4.55 10^6/uL Normal 4.18-5.48 [...] Cells % 0.0 Comp Metabolic Panel 08/15/2019 [facility] Sodium 130 mmol/L Low 135-145 [address] [place] [address] [phone] Potassium 4.3 mmol/L Normal 3.5-5.0 Chloride 93 [...] Egfr 105.5 >60 3 Laboratory test 08/15/2019 [facility] Lipase 26 U/L Normal 11.0-82.0 finding [address] [place] [address] [phone] CBC Auto Diff 08/15/2019 [facility] White Blood 8.4 Normal 3.5 -10.8 [address] [facility] Count 10^3/[place] [address] [phone] Red Blood Count 5.27 10^6/uL Normal 4.18-5.48 [...] 5 Kidney failure <15 (or dialysis) 2 [facility] Severe Sepsis and Septic Shock Management [...] dialysis) Procedures Date Code Description Status 05/18/2018 [id number] Colonoscopy Completed 04/25/2013 [id number] Colonoscopy Completed 04/20/2013 [id number] Colonoscopy Completed Medical Devices Description No Information Available Encounters Type Date Location Provider Dx Diagnosis Office Visit 08/18/2019 Surgical Pepe Boles K56.609 Unsp intestnl 7:00a [facility] obst, unsp [...] 11:00 am - [facility] Urbano Steven NPZ00.00 Encounter [...]
--- OUTSIDE RECORDS SUMMARY | 2019-08-28 15:28 | XMS REPORT | Continuity of Care Document ---
:1940 External Reference #:[id number] Author Name Pepe Douglass MD (transmitted by agent of provider Jeanette Castillo) Address [address] [place] [address] Care Team Providers Name Role Phone Remedios Caal MD - Hematology & Care Team Information Equity Analyst Oncology Joaquin Stroud MD - Gastroenterology Care Team Information Equity Analyst [phone] Felicia Mccann MD - Internal Care Team Information Equity Analyst Medicine Problems Active Problems Provider Date Generalized [...] needed 3Boxes C18.9 Urbano Steven NP 2018 [place] Lock 2 3/4 Change as needed 12Boxes C18.9 Urbano Steven, POORNIMA Z93.3 Stomahesive Paste use as needed 3Tubes C18.9 Urbano Steven, POORNIMA 09/13/2018 Z93.3 Immunizations CPT Code Status Date Vaccine Reaction Lot # [id number] Given 04/13/2019 Influenza Virus Vaccine, Quadrivalent, Split, Preservative Free 28497 Given 04/03/2018 Influenza Virus Vaccine, Quadrivalent, Split, Preservative Free 57006 Given 07/17/2017 Fluzone High Dose 75136 Given 11/05/2016 Pneumococcal Conjugate noimmedate reaction [id number] Vaccine 13 Valent For noted, pt tolerated Intramuscular Use well ... hh Q2039 Given 04/03/2016 Flu Vaccine NOS 30394 Given 03/15/2013 Flu Vaccine Split Virus [id number] Preservative Free For Indiv 3Yr Older 77772 Given 09/26/2008 Pneumonia Vaccine Vital Signs Date [...] Result H/L Range Note Comp Metabolic 08/23/2019 [facility] Sodium 131 mmol/L Low 135 -145 Panel [address] [place] [address] [phone] Potassium 4.1 mmol/L Normal 3.5-5.0 Chloride 93 [...] Egfr 83.6 >60 1 Laboratory test 08/23/2019 [facility] Magnesium 1.4 mg/dL Low 1.9-2.[address] [place] [address] [phone] Lipase < 10 U/L Low 11.0-82.0 C Reactive Protein 25.72 mg/L High <8.01 Lactic Acid 1.4 mmol/L Normal 0.5-2.0 2 CBC Auto 08/23/2019 [facility] White Blood 12.8 10^3/uL High 3.5-10.[address] [place] [address] [phone] Red Blood Count 4.55 10^6/uL Normal 4.18-5.48 [...] Cells % 0.0 Comp Metabolic Panel 08/15/2019 [facility] Sodium 130 mmol/L Low 135-145 [address] [place] [address] [phone] Potassium 4.3 mmol/L Normal 3.5-5.0 Chloride 93 [...] Egfr 105.5 >60 3 Laboratory test 08/15/2019 [facility] Lipase 26 U/L Normal 11.0-82.0 finding [address] [place] [address] [phone] CBC Auto Diff 08/15/2019 [facility] White Blood 8.4 Normal 3.5 -10.8 [address] [facility] Count 10^3/[place] [address] [phone] Red Blood Count 5.27 10^6/uL Normal 4.18-5.48 [...] failure <15 (or dialysis) 2 [facility] Severe Sepsis and Septic Shock Management [...] dialysis) Procedures Date Code Description Status 05/18/2018 [id number] Colonoscopy Completed 04/25/2013 [id number] Colonoscopy Completed 04/20/2013 [id number] Colonoscopy Completed Medical Devices Description No Information Available Encounters Type Date Location Provider Dx Diagnosis Office Visit 08/17/2019 Surgical Waqar K56.609 Unsp intestnl 7:00a [facility] [...] Douglass MD 08/18/2019 Z93.3 Colostomy status Puja CochranOHugo 08/17/2019 K56.609 Unspecified intestinal obstruction, TERESO Patricia unspecified as to partial versus complete obstruction 08/17/2019 K56.609 Unspecified intestinal obstruction, Elmira Cortes DHugoOHugo unspecified as to partial versus complete obstruction 08/17/2019 Z93.3 Colostomy status Jalil Mejia PA-C 08/17/2019 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 08/16/2019 K56.609 Unspecified intestinal obstruction, Pepe Douglass MD unspecified as to partial versus complete obstruction 08/16/2019 K56.609 Unspecified intestinal obstruction, Puja CochranOHugo unspecified as to partial versus complete obstruction 08/16/2019 Z93.3 Colostomy status Pepe Douglass MD 08/16/2019 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 Plan of Treatment Future Appointment(s):11/15/2019 11:00 am - Urbano Steven [facility] Urbano Steven NPZ00.00 Encounter [...]
--- OUTSIDE RECORDS SUMMARY | 2019-08-28 15:28 | XMS REPORT | Continuity of Care Document ---
:1940 External Reference #:[id number] Author Name Elmira Cortes D.O. (transmitted by agent of provider Analy Cristina) Address [address] [place] [address] Care Team Providers Name Role Phone Remedios Caal MD - Hematology & Care Team Information Apprentice Plumber Oncology Joaquin Stroud MD - Gastroenterology Care Team Information Apprentice Plumber Felicia Mccann MD - Internal Care Team Information Apprentice Plumber Medicine Problems Active Problems Provider Date Generalized [...] needed 3Boxes C18.9 Urbano Steven NP 2018 [place] Lock 2 3/4 Change as needed 12Boxes C18.9 Urbano Steven, POORNIMA Z93.3 Stomahesive Paste use as needed 3Tubes C18.9 Urbano Steven NP 09/13/2018 Z93.3 Immunizations CPT Code Status Date Vaccine Reaction Lot # [id number] Given 04/13/2019 Influenza Virus Vaccine, Quadrivalent, Split, Preservative Free 07306 Given 04/03/2018 Influenza Virus Vaccine, Quadrivalent, Split, Preservative Free 76191 Given 07/17/2017 Fluzone High Dose 31801 Given 11/05/2016 Pneumococcal Conjugate noimmedate reaction [id number] Vaccine 13 Valent For noted, pt tolerated Intramuscular Use well ... hh Q2039 Given 04/03/2016 Flu Vaccine NOS 99570 Given 03/15/2013 Flu Vaccine Split Virus [id number] Preservative Free For Indiv 3Yr Older 13930 Given 09/26/2008 Pneumonia Vaccine Vital Signs Date [...] Result H/L Range Note Comp Metabolic 08/23/2019 [facility] Sodium 131 mmol/L Low 135 -145 Panel [address] [place] [address] [phone] Potassium 4.1 mmol/L Normal 3.5-5.0 Chloride 93 [...] Egfr 83.6 >60 1 Laboratory test 08/23/2019 [facility] Magnesium 1.4 mg/dL Low 1.9-2.[address] [place] [address] [phone] Lipase < 10 U/L Low 11.0-82.0 C Reactive Protein 25.72 mg/L High <8.01 Lactic Acid 1.4 mmol/L Normal 0.5-2.0 2 CBC Auto 08/23/2019 [facility] White Blood 12.8 10^3/uL High 3.5-10.[address] [place] [address] [phone] Red Blood Count 4.55 10^6/uL Normal 4.18-5.48 [...] Cells % 0.0 Comp Metabolic Panel 08/15/2019 [facility] Sodium 130 mmol/L Low 135-145 [address] [place] [address] [phone] Potassium 4.3 mmol/L Normal 3.5-5.0 Chloride 93 [...] Egfr 105.5 >60 3 Laboratory test 08/15/2019 [facility] Lipase 26 U/L Normal 11.0-82.[address] [place] [address] [phone] CBC Auto Diff 08/15/2019 [facility] White Blood 8.4 Normal 3.5 -10.8 [address] [facility] Count 10^3/[place] [address] [phone] Red Blood Count 5.27 10^6/uL Normal 4.18-5.48 [...] 5 Kidney failure <15 (or dialysis) 2 [facility] Severe Sepsis and Septic Shock Management [...] dialysis) Procedures Date Code Description Status 05/18/2018 [id number] Colonoscopy Completed 04/25/2013 [id number] Colonoscopy Completed 04/20/2013 [id number] Colonoscopy Completed Medical Devices Description No Information Available Encounters Type Date Location Provider Dx Diagnosis Office Visit 08/19/2019 Surgical Jalil Kingsley K56.609 Unsp intestnl 7:00a [facility] obst, unsp as to partial versus complete obst Z93.3 Colostomy status Office Visit 08/18/2019 11:06a [facility] K56.609 Unsp intestnl Assoc,andreas Cortes D.O. obst, unsp as Hospitalists to partial versus complete obst Z93.3 Colostomy status Office Visit 08/18/2019 7:00a Surgical Pepe Boles K56.609 Unsp intestnl [facility] MD obst, unsp as to partial versus complete obst Z93.3 Colostomy status Office Visit 08/17/2019 11:05a [facility] K56.609 Unsp intestnl Assoc,Puja AcuñaOHugo obst, unsp as Hospitalists to partial versus complete obst Z93.3 Colostomy status Office Visit 08/17/2019 7:00a Surgical Jalil Kingsley K56.609 Unsp intestnl [facility] obst, unsp as to partial versus complete obst Z93.3 Colostomy status [facility] Assoc,Puja AcuñaOHugo obst, [...] 11:00 am - [facility] Urbano Steven NPZ00.00 Encounter for [...]
[2019-08-28 15:49] LABS: ABS Lymphocytes 0.2 10^3/ul (1.0-4.8); ABS Monocytes 0.4 10^3/ul (0-0.8); ABS Neutrophils 8.6 10^3/ul (1.5-7.7); Hematocrit 41 % (42-52); Hemoglobin 13.9 g/dL (14.0-18.0); Lymphocyte % 1.8 %; Mean Corpuscular HGB Conc 34 g/dL (31-36); Mean Corpuscular Hemoglobin 30 pg (27-31); Mean Corpuscular Volume 88 fL (80-94); Mean Platelet Volume 6.4 fL (7.4-10.4); Nucleated Red Blood Cells % 0.1; Platelet Count 369 10^3/uL (150-450); Red Blood Count 4.62 10^6 /uL (4.18-5.48); Red Cell Distribution Width 13 % (10-15); White Blood Count 9.2 10^3/uL (3.5-10.8)
[2019-08-28 15:58] LABS: ALT 15 U/L (7-52); AST 17 U/L (13-39); Albumin 3.5 g/dL (3.2-5.2); Albumin/Globulin Ratio 1.2 (1-3); Alkaline Phosphatase 71 U/L (34-104); Anion Gap 10 mmol/L (2-11); Blood Urea Nitrogen 13 mg/dL (6-24); C Reactive Protein 11.28 mg/L (<8.01); CO2 Carbon Dioxide 24 mmol/L (22-32); Calcium 8.7 mg/dL (8.6-10.3); Chloride 99 mmol/L (101-111); EGFR African American 95.1 (>60); EGFR Non-African American 78.6 (>60); Globulin 2.9 g/dL (2-4); Glucose 115 mg/dL (70-100); Magnesium 1.4 mg/dL (1.9-2.7); Potassium 4.2 mmol/L (3.5-5.0); Sodium 133 mmol/L (135-145); Total Protein 6.4 g/dL (6.4-8.9)
[2019-08-28] MEDS ORDERED: Ondansetron ODT TAB* 4 MG SL ONE (17:45)
[2019-08-28 18:20] VITALS: BP 103/56
== END 2019-08-28 18:18 | disposition home or self-care (01) ==
LOC: ED 14:54
DX: K56.609 Unspecified intestinal obstruction, unspecified as to partial versus complete obstruction (principal); R11.0 Nausea; F17.210 Nicotine dependence, cigarettes, uncomplicated; Z85.030 Personal history of malignant carcinoid tumor of large intestine
CPT/HCPCS: 36415; 74018; 80053; 83605; 83690; 83735; 85025; 86140; 99283; A9270-GY; J2405

== ENCOUNTER 2019-09-13 13:54 | Emergency (ER) | payer MEDICARE ==
--- OUTSIDE RECORDS SUMMARY | 2019-09-13 14:00 | XMS REPORT | Continuity of Care Document ---
:1940 External Reference #:[id number] Author Name Corrie Vega NP (transmitted by agent of provider Analy Cristina) Address [address] [place] [address] Care Team Providers Name Role Phone Remedios Caal MD - Hematology & Care Team Information Client Solutions Specialist Oncology Joaquin Stroud MD - Gastroenterology Care Team Information Client Solutions Specialist Felicia Mccann MD - Internal Care Team Information Client Solutions Specialist [phone] Medicine Problems Active Problems Provider Date Generalized [...] Use Denies Drug Use Smoking Status Reviewed: 08/31/19 Patient is a former 2 packs a week for smoker 10 years , recently quilt 02/26 Exercise Type/Frequency Exercises regularly Allergies, Adverse Reactions, Alerts Description No Known Drug Allergies Medications Active Medications SIG Qnty Indications Ordering Date Provider Ensure Clear four times a K56.609 Clare Olea MD 08/31/2019 Liquid day as needed [place]lock 2-pc Change as 3Boxes C18.9 Urbano Steven NP 09/13/2018 Drainable Pouch/Barrier needed Film/Flange 2-3/4" Misc Z93.3 Urostomy Pouch 2 3/4" Change as needed 3Boxes C18.9 Urbano Steven NP 2018 [place] Lock 2 3/4 Change as needed 12Boxes C18.9 Urbano Steven NP 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 Immunizations CPT Code Status Date Vaccine Reaction Lot # [id number] Given 04/13/2019 Influenza Virus Vaccine, Quadrivalent, Split, Preservative Free 68575 Given 04/03/2018 Influenza Virus Vaccine, Quadrivalent, Split, Preservative Free 60567 Given 07/17/2017 Fluzone High Dose 82904 Given 11/05/2016 Pneumococcal Conjugate noimmedate reaction [id number] Vaccine 13 Valent For noted, pt tolerated Intramuscular Use well ... hh Q2039 Given 04/03/2016 Flu Vaccine NOS 37781 Given 03/15/2013 Flu Vaccine Split Virus [id number] Preservative Free For Indiv 3Yr Older 42977 Given 09/26/2008 Pneumonia Vaccine Vital Signs Date Vital Result Comment 08/31/2019 11:13am Height 64.5 inches 5'4.50" Weight 110.38 lb Heart Rate 80 /min BP Systolic 120 mmHg BP Diastolic 62 mmHg Respiratory Rate 18 /min Body Temperature 98.1 F BMI (Body Mass Index) 18.7 kg/m2 11/10/2018 8:45am Height 64.50 inches 5'4.50" Weight 125.00 lb Heart Rate 69 /min BP Systolic 109 mmHg BP Diastolic 67 mmHg Body Temperature 97.5 F O2 % BldC Oximetry 96 % BMI (Body Mass Index) 21.1 kg/m2 Results Test Acquired Date Facility Test Result H/L Range Note Laboratory test 08/28/2019 [facility] Lactic Acid 1.5 mmol/L Normal 0.5-2.0 [address] [place] [address] [phone] CBC Auto Diff 08/28/2019 [facility] White Blood 9.2 10^3/uL Normal 3.5-10.[address] [place] [address] [phone] Red Blood Count 4.62 10^6/uL Normal 4.18-5.48 Hemoglobin 13.9 g/dL Low 14.0-18.0 Hematocrit 41 % Low 42-52 Mean Corpuscular Volume 88 fL Normal 80-94 Mean Corpuscular Hemoglobin 30 pg Normal 27-31 Mean Corpuscular HGB Conc 34 g/dL Normal 31-36 Red Cell Distribution Width 13 % Normal 10-15 Platelet Count 369 10^3/uL Normal 150-450 Mean Platelet Volume 6.4 fL Low 7.4-10.4 Abs Neutrophils 8.6 10^3/uL High 1.5-7.7 Abs Lymphocytes 0.2 10^3/uL Low 1.0-4.8 Abs Monocytes 0.4 10^3/uL Normal 0-0.8 Abs Eosinophils 0.0 10^3/uL Normal 0-0.6 Abs Basophils 0.0 10^3/uL Normal 0-0.2 Abs Nucleated RBC 0.0 10^3/uL Granulocyte % 93.7 % Lymphocyte % 1.8 % Monocyte % 4.2 % Eosinophil % 0.0 % Basophil % 0.3 % Nucleated Red Blood Cells % 0.1 Comp Metabolic Panel 08/28/2019 [facility] Sodium 133 mmol/L Low 135-[address] [place] [address] [phone] Potassium 4.2 mmol/L Normal 3.5-5.0 Chloride 99 mmol/L Low 101-111 Co2 Carbon Dioxide 24 mmol/L Normal 22-32 Anion Gap 10 mmol/L Normal 2-11 Glucose 115 mg/dL High 70-100 Blood Urea Nitrogen 13 mg/dL Normal 6-24 Creatinine 0.93 mg/dL Normal 0.67-1.17 BUN/Creatinine Ratio 14.0 Normal 8-20 Calcium 8.7 mg/dL Normal 8.6-10.3 Total Protein 6.4 g/dL Normal 6.4-8.9 Albumin 3.5 g/dL Normal 3.2-5.2 Globulin 2.9 g/dL Normal 2-4 Albumin/Globulin Ratio 1.2 Normal 1-3 Total Bilirubin 1.10 mg/dL High 0.2-1.0 Alkaline Phosphatase 71 U/L Normal 34-104 Alt 15 U/L Normal 7-52 Ast 17 U/L Normal 13-39 Egfr Non- 78.6 >60 Egfr 95.1 >60 2 Laboratory test 08/28/2019 [facility] Magnesium 1.4 mg/dL Low 1.9-2.7 finding [address] [place] [address] [phone] Lipase < 10 U/L Low 11.0-82.0 C Reactive Protein 11.28 mg/L High <8.01 Comp Metabolic Panel 08/23/2019 [facility] Sodium 131 mmol/L Low 135-[address] [place] [address] [phone] Potassium 4.1 mmol/L Normal 3.5-5.0 Chloride 93 [...] Egfr Non- 69.1 >60 Egfr 83.6 >60 3 Laboratory test 08/23/2019 [facility] Magnesium 1.4 mg/dL Low 1.9-2.7 finding [address] [place] [address] [phone] Lipase < 10 U/L Low 11.0-82.0 C Reactive Protein 25.72 mg/L High <8.01 Lactic Acid 1.4 mmol/L Normal 0.5-2.0 4 CBC Auto 08/23/2019 [facility] White Blood 12.8 10^3/uL High 3.5-10.[address] [place] [address] [phone] Red Blood Count 4.55 10^6/uL Normal 4.18-5.48 [...] Cells % 0.0 Comp Metabolic Panel 08/15/2019 [facility] Sodium 130 mmol/L Low 135-[address] [place] [address] [phone] Potassium 4.3 mmol/L Normal 3.5-5.0 Chloride 93 [...] Egfr Non- 87.2 >60 Egfr 105.5 >60 5 Laboratory test 08/15/2019 [facility] Lipase 26 U/L Normal 11.0-82.[address] [place], [place] [address] [phone] CBC Auto Diff 08/15/2019 [facility] White Blood 8.4 Normal 3.5 -10.[address] Count 10^3/[place] [address] [phone] Red Blood Count 5.27 10^6/uL Normal 4.18-5.48 [...] Nucleated Red Blood Cells % 0.0 1 [facility] Severe Sepsis and Septic Shock Management Bundle Measure requires all lactic acids initially measuring >2.0 mmol/L be repeated. 2 Because ethnic data is not always readily [...] 15-29 5 Kidney failure <15 (or dialysis) 3 Because ethnic data is not always [...] 15-29 5 Kidney failure <15 (or dialysis) 4 [facility] Severe Sepsis and Septic Shock Management Bundle Measure requires all lactic acids initially measuring >2.0 mmol/L be repeated. 5 Because ethnic data is not always readily [...] dialysis) Procedures Date Code Description Status 05/18/2018 [id number] Colonoscopy Completed 04/25/2013 [id number] Colonoscopy Completed 04/20/2013 [id number] Colonoscopy Completed Medical Devices Description No Information Available Encounters Type Date Location Provider Dx Diagnosis Office Visit 08/26/2019 [facility] K56.609 Unsp intestnl 10:34a Assoc,pc Silvia, MECHANICAL REPAIR WORKER obst, unsp as to Hospitalists partial versus complete obst E87.1 Hypo-osmolality and hyponatremia Z93.3 Colostomy status Office Visit 08/25/2019 10:33a [facility] K56.609 Unsp intestnl Assoc,pc Silvia, MECHANICAL REPAIR WORKER obst, unsp as Hospitalists to partial versus complete obst E87.1 Hypo-osmolality and hyponatremia Z93.3 Colostomy status Office Visit 08/24/2019 10:33a [facility] K56.609 Unsp intestnl Assoc,pc Silvia, MECHANICAL REPAIR WORKER obst, unsp as Hospitalists to partial versus complete obst E87.1 Hypo-osmolality and hyponatremia Office Visit 08/23/2019 10:27a [facility] K56.609 Unsp intestnl Assoc,andreas Vega, MECHANICAL REPAIR WORKER obst, unsp as Hospitalists to partial versus complete obst E87.1 Hypo-osmolality and hyponatremia Z93.3 Colostomy status E83.42 Hypomagnesemia Office Visit 08/19/2019 7:00a Surgical Jalil Kingsley K56.609 Unsp intestnl [facility] obst, unsp as to partial versus complete obst Z93.3 Colostomy status Office Visit 08/18/2019 11:06a [facility] K56.609 Unsp intestnl Assoc,andreas Cortes D.O. obst, unsp as Hospitalists to partial versus complete obst Z93.3 Colostomy status Office Visit 08/18/2019 7:00a Surgical Pepe Boles K56.609 Unsp intestnl [facility] MD obst, unsp as to partial versus complete obst Z93.3 Colostomy status [facility] Assoc,andreas Cortes D.O. obst, unsp as Hospitalists to partial versus complete obst Z93.3 Colostomy status Office Visit 08/17/2019 7:00a Surgical Jalil Kingsley K56.609 Unsp intestnl [facility]-C obst, unsp as to partial versus complete obst Z93.3 Colostomy status Office Visit 08/16/2019 11:05a [facility] [place] K56.609 [facility],Misti Acuña, unsp as Hospitalists to partial versus complete obst Z93.3 Colostomy status Office Visit 08/16/2019 7:00a Surgical Pepe Boles K56.609 [facility] MD jovita Mishra, unsp as to partial versus complete obst Z93.3 Colostomy status Assessments Date Code Description Provider 08/31/2019 K56.609 Unspecified intestinal obstruction, Clare Olea MD unspecified as to partial versus complete obstruction 08/26/2019 K56.609 Unspecified intestinal obstruction, Corrie Superior, MECHANICAL REPAIR WORKER unspecified as to partial versus complete obstruction 08/26/2019 E87.1 Hypo-osmolality and hyponatremia Corrie Superior, MECHANICAL REPAIR WORKER 08/26/2019 Z93.3 Colostomy status Corrie Silvia, MECHANICAL REPAIR WORKER 08/25/2019 K56.609 Unspecified intestinal obstruction, Corrie Silvia, MECHANICAL REPAIR WORKER unspecified as to partial versus complete obstruction 08/25/2019 E87.1 Hypo-osmolality and hyponatremia Corrie Silvia, MECHANICAL REPAIR WORKER 08/25/2019 Z93.3 Colostomy status Corrie Silvia, MECHANICAL REPAIR WORKER 08/24/2019 K56.609 Unspecified intestinal obstruction, Corrie Superior, MECHANICAL REPAIR WORKER unspecified as to partial versus complete obstruction 08/24/2019 E87.1 Hypo-osmolality and hyponatremia Corrie Superior, MECHANICAL REPAIR WORKER 08/23/2019 K56.609 Unspecified intestinal obstruction, Corrie Silvia, MECHANICAL REPAIR WORKER unspecified as to partial versus complete obstruction 08/23/2019 E87.1 Hypo-osmolality and hyponatremia Corrie Silvia, MECHANICAL REPAIR WORKER 08/23/2019 Z93.3 Colostomy status Corrie Superior, MECHANICAL REPAIR WORKER 08/23/2019 E83.42 Hypomagnesemia Corrie Sivlia, MECHANICAL REPAIR WORKER 08/19/2019 K56.609 Unspecified intestinal obstruction, TERESO Patricia [...] Jalil Mejia PA-C 08/17/2019 Z93.3 Colostomy status Puja CochranOHugo 08/16/2019 K56.609 Unspecified intestinal obstruction, Pepe Douglass MD unspecified as to partial versus complete obstruction 08/16/2019 K56.609 Unspecified intestinal obstruction, Elm[place] Cortes D.O. 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 Plan of Treatment Future Appointment(s):11/15/2019 11:00 am - Urbano Steven [facility] Clare Olea MDK56.609 Unspecified intestinal obstruction, unspecified as to partial versus complete obstructionNew Medication :Ensure Clear - four times a day as neededFollow up:Please follow-up as needed. Functional Status Description No Information Available Mental Status Description No Information Available Referrals Description No Information Available
--- OUTSIDE RECORDS SUMMARY | 2019-09-13 14:00 | XMS REPORT | Continuity of Care Document ---
:1940 External Reference #:[id number] Author Name Elmira Cortes D.O. (transmitted by agent of provider Analy Cristina) Address [address] [place] [address] Care Team Providers Name Role Phone Remedios Caal MD - Hematology & Care Team Information Timers Inspector Oncology Joaquin Stroud MD - Gastroenterology Care Team Information Timers Inspector Felicia Mccann MD - Internal Care Team Information Timers Inspector Medicine Problems Active Problems Provider Date Carcinoma in situ of colon Janee Montelongo M.D. Onset: 03/15/2013 Generalized osteoarthritis of the hand Janee Montelongo M.D. Onset: 03/15/2013 Social History [...] needed 3Boxes C18.9 Urbano Steven NP 2018 [place] [address] 2 3/4 Change as needed 12Boxes C18.9 Urbano Steven, HOME SERVICE CONSULTANT Z93.3 Stomahesive Paste use as needed 3Tubes C18.9 Urbano Maurizio, HOME SERVICE CONSULTANT 09/13/2018 Z93.3 Zofran 4mg take 1 tab every 6 hours as Unknown 00/00 /0000 Tablets needed for vomiting. Immunizations CPT Code Status Date Vaccine Reaction Lot # [id number] Given 04/13/2019 Influenza Virus Vaccine, Quadrivalent, Split, Preservative Free [id number] Given 04/03/2018 Influenza Virus Vaccine, Quadrivalent, Split, Preservative Free 34958 Given 07/17/2017 Fluzone High Dose 62087 Given 11/05/2016 Pneumococcal Conjugate noimmedate reaction [id number] Vaccine 13 Valent For noted, pt tolerated Intramuscular Use well ... hh Q2039 Given 04/03/2016 Flu Vaccine NOS 26349 Given 03/15/2013 Flu Vaccine Split Virus [id number] Preservative Free For Indiv 3Yr Older 32794 Given 09/26/2008 Pneumonia Vaccine Vital Signs Date [...] Result H/L Range Note Laboratory test 08/28/2019 [facility] [facility] Lactic Acid 1.5 mmol/L Normal 0.5-2.0 [address] [place] [address] [phone] CBC Auto Diff 08/28/2019 [facility] White Blood 9.2 10^3/uL Normal 3.5-10.[address] [place] [address] [phone] Red Blood Count 4.62 10^6/uL Normal 4.18-5.48 [...] Cells % 0.1 Comp Metabolic Panel 08/28/2019 [facility] Sodium 133 mmol/L Low 135-[address] [place] [address] [phone] Potassium 4.2 mmol/L Normal 3.5-5.0 Chloride 99 [...] Egfr 95.1 >60 2 Laboratory test 08/28/2019 [facility] Magnesium 1.4 mg/dL Low 1.9-2.[address] [place] [address] [phone] Lipase < 10 U/L Low 11.0-82.0 C Reactive Protein 11.28 mg/L High <8.01 Comp Metabolic Panel 08/23/2019 [facility] Sodium 131 mmol/L Low 135-[address] [place] [address] [phone] Potassium 4.1 mmol/L Normal 3.5-5.0 Chloride 93 [...] Egfr 83.6 >60 3 Laboratory test 08/23/2019 [facility] Magnesium 1.4 mg/dL Low 1.9-2.7 finding [address] [place] [address] [phone] Lipase < 10 U/L Low 11.0-82.0 C Reactive Protein 25.72 mg/L High <8.01 Lactic Acid 1.4 mmol/L Normal 0.5-2.0 4 CBC Auto 08/23/2019 [facility] White Blood 12.8 10^3/uL High 3.5-10.[address] [place] [address] [phone] Red Blood Count 4.55 10^6/uL Normal 4.18-5.48 [...] Cells % 0.0 Comp Metabolic Panel 08/15/2019 [facility] Sodium 130 mmol/L Low 135-145 [address] [place] [address] [phone] Potassium 4.3 mmol/L Normal 3.5-5.0 Chloride 93 [...] Egfr 105.5 >60 5 Laboratory test 08/15/2019 [facility] Lipase 26 U/L Normal 11.0-82.[address] [place] [address] [phone] CBC Auto Diff 08/15/2019 [facility] White Blood 8.4 Normal 3.5 -10.[address] Count 10^3/[place] [address] [phone] Red Blood Count 5.27 10^6/uL Normal 4.18-5.48 [...] Nucleated Red Blood Cells % 0.0 1 [facility] Severe Sepsis and Septic Shock [...] 5 Kidney failure <15 (or dialysis) 4 [facility] Severe Sepsis and Septic Shock [...] dialysis) Procedures Date Code Description Status 05/18/2018 [id number] Colonoscopy Completed 04/25/2013 [id number] Colonoscopy Completed 04/20/2013 [id number] Colonoscopy Completed Medical Devices Description No Information Available Encounters Type Date Location Provider Dx Diagnosis Office Visit 08/[facility] Clare Olea MD K56.609 Unsp intestnl 11:30a 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 Office Visit 08/24/2019 10:33a [facility] Corrie K56.609 Unsp intestnl Assoc,andreas Vega, [place]ORN[place] obst, unsp as Hospitalists to partial versus complete obst E87.1 Hypo-osmolality and hyponatremia Office Visit 08/[facility] Assoc,andreas Vega, POORNIM[place] obst, unsp as Hospitalists to partial versus complete obst E87.1 Hypo-osmolality and hyponatremia Z93.3 Colostomy status E83.42 Hypomagnesemia Office Visit 08/19/2019 11:06a [facility] Debra Hohn, K56.609 Unsp intestnl Assoc,andreas Lomax obst, unsp as Hospitalists to partial versus complete obst Office Visit 08/19/2019 7:00a Surgical Jalil Kingsley K56.609 Unsp intestnl 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 MD Rafat obst, unsp as to partial versus complete obst Z93.3 Colostomy status Office Visit 08/17/2019 11:05a [facility] K56.609 Unsp intestnl Assoc,andreas Cortes D.O. obst, unsp as Hospitalists to partial versus complete obst Z93.3 Colostomy status Office Visit 08/17/2019 7:00a Surgical Jalil Kingsley K56.609 Unsp intest [facility] SHIRA Mejia obst, unsp as to partial versus complete obst Z93.3 Colostomy status Office Visit 08/16/2019 11:05a [facility] K56.609 Unsp intestnl Assoc,andreas Cortes D.O. obst, unsp as Hospitalists to partial versus complete obst Z93.3 Colostomy status Office Visit 08/16/2019 7:00a Surgical Pepe Boles K56.609 Uns intest [facility] MD Rafat obst, unsp as to partial versus complete obst Z93.3 Colostomy status Office Visit 08/15/2019 11:03a [facility] K56.609 Uns intest Assoc,andreas Cortes D.O. obst, unsp as Hospitalists to partial versus complete obst E87.1 Hypo-osmolality and hyponatremia Assessments Date Code Description Provider 08/31/2019 K56.609 Unspecified intestinal obstruction, Clare Olea MD unspecified as to partial versus complete obstruction 08/26/2019 K56.609 Unspecified intestinal obstruction, Corrie Vega NP unspecified as to partial versus complete obstruction 08/26/2019 E87.1 Hypo-osmolality and hyponatremia Corrie Vega NP 08/26/2019 Z93.3 Colostomy status Corrie Vega NP 08/25/2019 K56.609 Unspecified intestinal obstruction, Corrie Vega NP unspecified as to partial versus complete obstruction 08/25/2019 E87.1 Hypo-osmolality and hyponatremia Corrie Vega NP 08/25/2019 Z93.3 Colostomy status Corrie Vega NP 08/24/2019 K56.609 Unspecified intestinal obstruction, Corrie Vega NP unspecified as to partial versus complete obstruction 08/24/2019 E87.1 Hypo-osmolality and hyponatremia Corrie Vega NP 08/23/2019 K56.609 Unspecified intestinal obstruction, Corrie Silvia, HOME SERVICE CONSULTANT unspecified as to partial versus complete obstruction 08/23/2019 E87.1 Hypo-osmolality and hyponatremia Corrie Vega, HOME SERVICE CONSULTANT 08/23/2019 Z93.3 Colostomy status Corrie Vega, HOME SERVICE CONSULTANT 08/23/2019 E83.42 Hypomagnesemia Corrie Vega, HOME SERVICE CONSULTANT 08/19/2019 K56.609 Unspecified intestinal obstruction, Debra Martin M.D. unspecified as to partial versus complete obstruction 08/19/2019 K56.609 Unspecified intestinal obstruction, TERESO Patricia [...] complete obstruction 08/17/2019 K56.609 Unspecified intestinal obstruction, Puja CochranOHugo unspecified as to partial versus complete obstruction 08/17/2019 Z93.3 Colostomy status Jalil Mejia PA-C 08/17/2019 Z93.3 Colostomy status Puja CochranO. 08/16/2019 K56.609 Unspecified intestinal obstruction, Pepe Douglass MD unspecified as to partial versus complete obstruction 08/16/2019 K56.609 Unspecified intestinal obstruction, Puja CochranOHugo unspecified as to partial versus complete obstruction 08/16/2019 Z93.3 Colostomy status Pepe Douglass MD 08/16/2019 Z93.3 Colostomy status Puja CochranO. 08/15/2019 K56.609 Unspecified intestinal obstruction, Elmira Cortes D.O. unspecified as to partial versus complete obstruction 08/15/2019 E87.1 Hypo-osmolality and hyponatremia Elmira Cortes D.O. Plan of Treatment Future Appointment(s):11/15/2019 11:00 am - Urbano Steven [facility] Clare Olea MDK56.609 Unspecified intestinal obstruction, unspecified as to partial versus complete obstructionNew Medication :Ensure Clear - four times a day as neededFollow up:Please follow-up as needed. Functional Status Description No Information Available Mental Status Description No Information Available Referrals Description No Information Available
--- OUTSIDE RECORDS SUMMARY | 2019-09-13 14:00 | XMS REPORT | Continuity of Care Document ---
:1940 External Reference #:[id number] Author Name Jalil Mejia PA-C (transmitted by agent of provider Jeanette Castillo) Address [address] [place] [address] Care Team Providers Name Role Phone Remedios Caal MD - Hematology & Care Team Information Nail Technician [phone] Oncology Joaquin Stroud MD - Gastroenterology Care Team Information Nail Technician [phone] Felicia Mccann MD - Internal Care Team Information Nail Technician Medicine Problems Active Problems Provider Date Carcinoma [...] 3/4" Change as needed 3Boxes C18.9 Urbano Maurizio, SALESPERSON SHEET MUSIC 2018 [place] [address] 2 3/4 Change as needed 12Boxes C18.9 Urbano Steven, SALESPERSON SHEET MUSIC Z93.3 Stomahesive Paste use as needed 3Tubes C18.9 Urbanomaggi Steven, SALESPERSON SHEET MUSIC 09/13/2018 Z93.3 Zofran 4mg take 1 tab every 6 hours as Unknown 00/00 /0000 Tablets needed for vomiting. Immunizations CPT Code Status Date Vaccine Reaction Lot # [id number] Given 04/13/2019 Influenza Virus Vaccine, Quadrivalent, Split, Preservative Free [id number] Given 04/03/2018 Influenza Virus Vaccine, Quadrivalent, Split, Preservative Free 52887 Given 07/17/2017 Fluzone High Dose 68334 Given 11/05/2016 Pneumococcal Conjugate noimmedate reaction [id number] Vaccine 13 Valent For noted, pt tolerated Intramuscular Use well ... hh Q2039 Given 04/03/2016 Flu Vaccine NOS 86576 Given 03/15/2013 Flu Vaccine Split Virus [id number] Preservative Free For Indiv 3Yr Older 38802 Given 09/26/2008 Pneumonia Vaccine Vital Signs Date [...] Result H/L Range Note Laboratory test 08/28/2019 [facility] Lactic Acid 1.5 mmol/L Normal 0.5-2.0 [address] [place] [address] [phone] CBC Auto Diff 08/28/2019 [facility] White Blood 9.2 10^3/uL Normal 3.5-10.[address] [place] [address] [phone] Red Blood Count 4.62 10^6/uL Normal 4.18-5.48 [...] Cells % 0.1 Comp Metabolic Panel 08/28/2019 [facility] Sodium 133 mmol/L Low 135-145 [address] [place] [address] [phone] Potassium 4.2 mmol/L Normal 3.5-5.0 Chloride 99 [...] Egfr 95.1 >60 2 Laboratory test 08/28/2019 [facility] Magnesium 1.4 mg/dL Low 1.9-2.7 finding [address] [place] [address] [phone] Lipase < 10 U/L Low 11.0-82.0 C Reactive Protein 11.28 mg/L High <8.01 Comp Metabolic Panel 08/23/2019 [facility] Sodium 131 mmol/L Low 135-145 [address] [place] [address] [phone] Potassium 4.1 mmol/L Normal 3.5-5.0 Chloride 93 [...] Egfr 83.6 >60 3 Laboratory test 08/23/2019 [facility] Magnesium 1.4 mg/dL Low 1.9-2.7 finding [address] [place] [address] [phone] Lipase < 10 U/L Low 11.0-82.0 C Reactive Protein 25.72 mg/L High <8.01 Lactic Acid 1.4 mmol/L Normal 0.5-2.0 4 CBC Auto 08/23/2019 [facility] White Blood 12.8 10^3/uL High 3.5-10.8 Diff [address] [place] [address] [phone] Red Blood Count 4.55 10^6/uL Normal 4.18-5.48 [...] Cells % 0.0 Comp Metabolic Panel 08/15/2019 [facility] Sodium 130 mmol/L Low 135-145 [address] [place] [address] [phone] Potassium 4.3 mmol/L Normal 3.5-5.0 Chloride 93 [...] Egfr 105.5 >60 5 Laboratory test 08/15/2019 [facility] Lipase 26 U/L Normal 11.0-82.[address] [place] [address] [phone] CBC Auto Diff 08/15/2019 [facility] White Blood 8.4 Normal 3.5 -10.[address] Count 10^3/[place] [address] [phone] Red Blood Count 5.27 10^6/uL Normal 4.18-5.48 [...] Nucleated Red Blood Cells % 0.0 1 [facility] Severe Sepsis and Septic Shock Management [...] 5 Kidney failure <15 (or dialysis) 4 [facility] Severe Sepsis and Septic Shock Management [...] dialysis) Procedures Date Code Description Status 05/18/2018 [id number] Colonoscopy Completed 04/25/2013 [id number] Colonoscopy Completed 04/20/2013 [id number] Colonoscopy Completed Medical Devices Description No Information Available Encounters Type Date Location Provider Dx Diagnosis Office Visit 08/31/2019 [facility] Clare Olea MD K56.609 Unsp intestnl 11:30a [facility] obst, unsp as to partial versus complete obst Office Visit 08/26/2019 [facility] Corrie K56.609 Unsp intestnl 10:34a Assoc,pc Silvia, SALESPERSON SHEET MUSIC obst, unsp as to Hospitalists partial versus complete obst E87.1 Hypo-osmolality and hyponatremia 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 Office Visit 08/25/2019 7:00a [facility] Jalil Kingsley K56.609 Unsp intestnl [facility] SHIRA Mejia obst, unsp as to partial versus complete obst Office Visit 08/25/2019 10:33a [facility] Corrie K56.609 Unsp intestnl Assoc,pc Silvia, SALESPERSON SHEET MUSIC obst, unsp as Hospitalists to partial versus complete obst E87.1 Hypo-osmolality and hyponatremia Z93.3 Colostomy status Office Visit 08/24/2019 7:00a [facility] Leny Arana MD K56.609 Unsp intestnl [facility] obst, unsp as to partial versus complete obst Office Visit 08/24/2019 10:33a [facility] Corrie K56.609 Unsp intestnl Assoc,pc Silvia, SALESPERSON SHEET MUSIC obst, unsp as Hospitalists to partial versus complete obst E87.1 Hypo-osmolality and hyponatremia Office Visit 08/23/2019 7:00a [facility] Leny Arana MD K56.609 Unsp intestnl [facility] obst, unsp as to partial versus complete obst [facility] Assoc,pc Silvia, SALESPERSON SHEET MUSIC obst, unsp as Hospitalists to partial versus complete obst E87.1 Hypo-osmolality and hyponatremia 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 Office Visit 08/17/2019 7:00a Surgical Jalil Kingsley K56.609 Unsp intestnl [facility] Robert Mejia PA-C obst, unsp as to partial versus complete obst Z93.3 Colostomy status Office Visit 08/16/2019 11:05a [facility] [place] K56.609 Unsp intestnl Assoc,pc Misti Cortes obst, unsp as Hospitalists to partial versus complete obst Z93.3 Colostomy status Office Visit 08/16/2019 7:00a Surgical Pepe Boles K56.609 Unsp intestnl [facility] Douglass MD obst, unsp as to partial versus complete obst 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 [facility] K[facility] Assoc,pc Alycia Cortes.Jaquan obst, unsp as Hospitalists to partial versus complete obst E87.1 Hypo-osmolality and hyponatremia Assessments Date Code Description Provider 08/31/2019 K56.609 Unspecified intestinal obstruction, Clare Olea MD unspecified as to partial versus complete obstruction 08/27/2019 K56.609 Unspecified intestinal obstruction, Leny Arana MD unspecified as to partial versus complete obstruction 08/26/2019 K56.609 Unspecified intestinal obstruction, Leny Arana MD unspecified as to partial versus complete obstruction 08/26/2019 K56.609 Unspecified intestinal obstruction, Corrie Vega, SALESPERSON SHEET MUSIC unspecified as to partial versus complete obstruction 08/26/2019 E87.1 Hypo-osmolality and hyponatremia Corrie Vega, SALESPERSON SHEET MUSIC 08/26/2019 Z93.3 Colostomy status Corrie Vega, SALESPERSON SHEET MUSIC 08/25/2019 K56.609 Unspecified intestinal obstruction, TERESO Patricia unspecified as to partial versus complete obstruction 08/25/2019 K56.609 Unspecified intestinal obstruction, Corrie Vega, SALESPERSON SHEET MUSIC unspecified as to partial versus complete obstruction 08/25/2019 E87.1 Hypo-osmolality and hyponatremia Corrie Vega, SALESPERSON SHEET MUSIC 08/25/2019 Z93.3 Colostomy status Corrie Vega, SALESPERSON SHEET MUSIC 08/24/2019 K56.609 Unspecified intestinal obstruction, Leny Arana MD unspecified as to partial versus complete obstruction 08/24/2019 K56.609 Unspecified intestinal obstruction, Corrie Vega, SALESPERSON SHEET MUSIC unspecified as to partial versus complete obstruction 08/24/2019 E87.1 Hypo-osmolality and hyponatremia Corrie Vega, SALESPERSON SHEET MUSIC 08/23/2019 K56.609 Unspecified intestinal obstruction, Leny Arana MD unspecified as to partial versus complete obstruction 08/23/2019 K56.609 Unspecified intestinal obstruction, Corrie Vega, SALESPERSON SHEET MUSIC unspecified as to partial versus complete obstruction 08/23/2019 E87.1 Hypo-osmolality and hyponatremia Corrie Vega, SALESPERSON SHEET MUSIC 08/23/2019 Z93.3 Colostomy status Corrie Vega, SALESPERSON SHEET MUSIC 08/23/2019 E83.42 Hypomagnesemia Corrie Vega, SALESPERSON SHEET MUSIC 08/19/2019 K56.609 Unspecified intestinal obstruction, Debra Martin [...] 11:00 am - Urbano Steven NP at [facility] Internal Medicine - [facility]08/31/2019 - Clare Olea MDK56.609 Unspecified intestinal obstruction, unspecified as to partial versus complete obstructionNew Medication :Ensure Clear - four times a day as neededFollow up:Please follow-up as needed. Functional Status Description No Information Available Mental Status Description No Information Available Referrals Description No Information Available
--- OUTSIDE RECORDS SUMMARY | 2019-09-13 14:00 | XMS REPORT | Continuity of Care Document ---
:1940 External Reference #:[id number] Author Name Leny Arana MD (transmitted by agent of provider Jeanette Castillo) Address [address] [place] [address] Care Team Providers Name Role Phone Remedios Caal MD - Hematology & Care Team Information Head Of Music Oncology Joaquin Stroud MD - Gastroenterology Care Team Information Head Of Music [phone] Felicia Mccann MD - Internal Care Team Information Head Of Music [phone] Medicine Problems Active Problems Provider Date Carcinoma [...] 3/4" Change as needed 3Boxes C18.9 Urbano Steven, CITY DISPATCHER 2018 [place] Lock 2 3/4 Change as needed 12Boxes C18.9 Urbano Steven, CITY DISPATCHER Z93.3 Stomahesive Paste use as needed 3Tubes C18.9 Urbano Maurizio, CITY DISPATCHER 09/13/2018 Z93.3 Zofran 4mg take 1 tab every 6 hours as Unknown 00/00 /0000 Tablets needed for vomiting. Immunizations CPT Code Status Date Vaccine Reaction Lot # [id number] Given 04/13/2019 Influenza Virus Vaccine, Quadrivalent, Split, Preservative Free 44866 Given 04/03/2018 Influenza Virus Vaccine, Quadrivalent, Split, Preservative Free 41983 Given 07/17/2017 Fluzone High Dose 26159 Given 11/05/2016 Pneumococcal Conjugate noimmedate reaction [id number] Vaccine 13 Valent For noted, pt tolerated Intramuscular Use well ... hh Q2039 Given 04/03/2016 Flu Vaccine NOS 61397 Given 03/15/2013 Flu Vaccine Split Virus [id number] Preservative Free For Indiv 3Yr Older 30457 Given 09/26/2008 Pneumonia Vaccine Vital Signs Date [...] Result H/L Range Note Laboratory test 08/28/2019 [facility] Lactic Acid 1.5 mmol/L Normal 0.5-2.0 [address] [place] [address] [phone] CBC Auto Diff 08/28/2019 [facility] White Blood 9.2 10^3/uL Normal 3.5-10.[address] [place] [address] [phone] Red Blood Count 4.62 10^6/uL Normal 4.18-5.48 [...] Cells % 0.1 Comp Metabolic Panel 08/28/2019 [facility] Sodium 133 mmol/L Low 135-[address] [place] [address] [phone] Potassium 4.2 mmol/L Normal 3.5-5.0 Chloride 99 [...] Egfr 95.1 >60 2 Laboratory test 08/28/2019 [facility] Magnesium 1.4 mg/dL Low 1.9-2.7 finding [address] [place] [address] [phone] Lipase < 10 U/L Low 11.0-82.0 C Reactive Protein 11.28 mg/L High <8.01 Comp Metabolic Panel 08/23/2019 [facility] Sodium 131 mmol/L Low 135-145 [address] [place] [address] [phone] Potassium 4.1 mmol/L Normal 3.5-5.0 Chloride 93 [...] Egfr 83.6 >60 3 Laboratory test 08/23/2019 [facility] Magnesium 1.4 mg/dL Low 1.9-2.7 finding [address] [place] [address] [phone] Lipase < 10 U/L Low 11.0-82.0 C Reactive Protein 25.72 mg/L High <8.01 Lactic Acid 1.4 mmol/L Normal 0.5-2.0 4 CBC Auto 08/23/2019 [facility] White Blood 12.8 10^3/uL High 3.5-10.[address] [place] [address] [phone] Red Blood Count 4.55 10^6/uL Normal 4.18-5.48 [...] Cells % 0.0 Comp Metabolic Panel 08/15/2019 [facility] Sodium 130 mmol/L Low 135-145 [address] [place] [address] [phone] Potassium 4.3 mmol/L Normal 3.5-5.0 Chloride 93 [...] Egfr 105.5 >60 5 Laboratory test 08/15/2019 [facility] Lipase 26 U/L Normal 11.0-82.[address] [place] [address] [phone] CBC Auto Diff 08/15/2019 [facility] White Blood 8.4 Normal 3.5 -10.[address] Count 10^3/[place] [address] [phone] Red Blood Count 5.27 10^6/uL Normal 4.18-5.48 [...] Nucleated Red Blood Cells % 0.0 1 [facility] Severe Sepsis and Septic Shock [...] 5 Kidney failure <15 (or dialysis) 4 [facility] Severe Sepsis and Septic Shock [...] dialysis) Procedures Date Code Description Status 05/18/2018 [id number] Colonoscopy Completed 04/25/2013 [id number] Colonoscopy Completed 04/20/2013 [id number] Colonoscopy Completed Medical Devices Description No Information Available Encounters Type Date Location Provider Dx Diagnosis Office Visit 08/[facility]2019 [facility] Clare Olea MD K56.609 Unsp intestnl 11:30a Of [facility] obst, unsp as to partial versus complete obst Office Visit 08/27/2019 [facility] Leny Arana MD K56.609 Unsp intestnl 7:00a Of [employer] obst, unsp as to partial versus complete obst Office Visit 08/26/2019 [facility] Leny Arana MD K56.609 Unsp intestnl 7:00a Of [facility] obst, unsp as to partial versus complete obst Office Visit 08/26/2019 [facility] K56.609 Unsp intestnl 10:34a Assoc,pc Silvia, CITY DISPATCHER obst, unsp as to Hospitalists partial versus complete obst E87.1 Hypo-osmolality and hyponatremia Z93.3 Colostomy status Office Visit 08/25/2019 7:00a [facility] Jalil Kingsley K56.[address] [facility] SHIRA Mejia obst, unsp as to partial versus complete obst Office Visit 08/25/2019 10:33a [facility] K56.609 Unsp intestnl Assoc,pc Silvia, CITY DISPATCHER obst, unsp as Hospitalists to partial versus complete obst E87.1 Hypo-osmolality and hyponatremia Z93.3 Colostomy status Office Visit 08/24/2019 7:00a [facility] Leny Arana MD K56.[address] [facility] obst, unsp as to partial versus complete obst Office Visit 08/24/2019 10:33a [facility] K56.609 Unsp intestnl Assoc,pc Silvia, CITY DISPATCHER obst, unsp as Hospitalists to partial versus complete obst E87.1 Hypo-osmolality and hyponatremia Office Visit 08/23/2019 10:27a [facility] K56.609 Unsp intestnl Assoc,pc Silvia, CITY DISPATCHER obst, unsp as Hospitalists to partial versus complete obst E87.1 Hypo-osmolality and hyponatremia Z93.3 Colostomy status E83.42 Hypomagnesemia Office Visit 08/23/2019 7:00a Surgical Leny Arana MD K56.609 Unsp intestnl [facility] obst, unsp as to partial versus complete obst Office Visit 08/19/2019 11:06a [facility] Debra Martin, K56.609 Unsp intestnl Assoc,andreas Lomax obst, unsp as Hospitalists to partial versus complete obst Office Visit 08/19/2019 7:00a Surgical Jalil Kingsley K56.609 Unsp intestnl [facility] SHIRA Mejia obst, unsp as to partial versus complete obst Z93.3 Colostomy status [facility] K[facility].609 [facility] Assoc,andreas Cortes D.O. obst, unsp as Hospitalists to partial versus complete obst Z93.3 Colostomy status Office Visit 08/18/2019 7:00a Surgical Pepe Boles K56.609 Unsp intestnl [facility]lass MD obst, unsp as to partial versus complete obst Z93.3 Colostomy status Office Visit 08/17/2019 [facility] K56.609 [facility]sp [facility]nl Assoc,andreas Cortes D.O. obst, unsp as Hospitalists to partial versus complete obst Z93.3 Colostomy status Office Visit 08/17/2019 7:00a Surgical Jalil Kingsley K56.609 Unsp intestnl [facility] SHIRA Mejia obst, unsp as to partial versus complete obst Z93.3 Colostomy status Office Visit 08/16/2019 11[facility] K56.609 [facility]sp [facility]nl Assoc,andreas Cortes DKusum obst, unsp as Hospitalists to partial versus complete obst Z93.3 Colostomy status Office Visit 08/16/2019 7:00a Surgical Pepe Boles K56.609 Unsp intestnl [facility] MD obst, unsp as to partial versus complete obst Z93.3 Colostomy status Office Visit 08/15/2019 11:03[facility] K56.609 [facility]sp [facility]nl Assoc,Alycia Acuña.O. obst, unsp as Hospitalists to partial versus [...] obstruction 08/26/2019 K56.609 Unspecified intestinal obstruction, Corrie Silvia, CITY DISPATCHER unspecified as to partial versus complete obstruction 08/26/2019 E87.1 Hypo-osmolality and hyponatremia Corrie Silvia, CITY DISPATCHER 08/26/2019 Z93.3 Colostomy status [facility], CITY DISPATCHER 08/25/2019 K56.609 Unspecified intestinal obstruction, TERESO Patricia unspecified as to partial versus complete obstruction 08/25/2019 K56.609 Unspecified intestinal obstruction, Corrie Silvia, CITY DISPATCHER unspecified as to partial versus complete obstruction 08/25/2019 E87.1 Hypo-osmolality and hyponatremia Corrie Silvia, CITY DISPATCHER 08/25/2019 Z93.3 Colostomy status Corrie Silvia, CITY DISPATCHER 08/24/2019 K56.609 Unspecified intestinal obstruction, Leny Arana MD unspecified as to partial versus complete obstruction 08/24/2019 K56.609 Unspecified intestinal obstruction, Corrieamy Vega, CITY DISPATCHER unspecified as to partial versus complete obstruction 08/24/2019 E87.1 Hypo-osmolality and hyponatremia [facility], CITY DISPATCHER 08/23/2019 K56.609 Unspecified intestinal obstruction, Leny Arana MD unspecified as to partial versus complete obstruction 08/23/2019 K56.609 Unspecified intestinal obstruction, Corrie Silvia, CITY DISPATCHER unspecified as to partial versus complete obstruction 08/23/2019 E87.1 Hypo-osmolality and hyponatremia [facility], CITY DISPATCHER 08/23/2019 Z93.3 Colostomy status [facility], CITY DISPATCHER 08/23/2019 E83.42 Hypomagnesemia [facility], CITY DISPATCHER 08/19/2019 K56.609 Unspecified intestinal obstruction, Debra Martin M.D. unspecified as to partial versus complete obstruction 08/19/2019 K56.609 Unspecified intestinal obstruction, Waqar Roberto, PA -C unspecified as to partial versus complete obstruction 08/19/2019 Z93.3 Colostomy status Jalil Mejia PA-C 08/18/2019 K56.609 Unspecified intestinal obstruction, Pepe Douglass MD unspecified as to partial versus complete obstruction 08/18/2019 K56.609 Unspecified intestinal obstruction, Puja CochranOHugo unspecified as to partial versus complete obstruction 08/18/2019 Z93.3 Colostomy status Pepe Douglass MD 08/18/2019 Z93.3 Colostomy status Elmira Cortes DHugoO. 08/17/2019 K56.609 Unspecified intestinal obstruction, TERESO Patricia [...] 08/16/2019 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 08/15/2019 K56.609 Unspecified intestinal obstruction, Elmira Cortes D.O. unspecified as to partial versus complete obstruction 08/15/2019 E87.1 Hypo-osmolality and hyponatremia Elmira Cortes D.O. Plan of Treatment Future Appointment(s):11/15/2019 11:00 am - Urbano Steven NP at [facility] Clare Olea MDK56.609 Unspecified intestinal obstruction, unspecified as to partial versus complete obstructionNew Medication :Ensure Clear - four times a day as neededFollow up:Please follow-up as needed. Functional Status Description No Information Available Mental Status Description No Information Available Referrals Description No Information Available
--- OUTSIDE RECORDS SUMMARY | 2019-09-13 14:00 | XMS REPORT | Continuity of Care Document ---
:1940 External Reference #:[id number] Author Name Corrie Vega NP (transmitted by agent of provider Analy Cristina) Address [address] [place] [address] Care Team Providers Name Role Phone Remedios Caal MD - Hematology & Care Team Information Professor Of Public Administration Oncology Joaquin Stroud MD - Gastroenterology Care Team Information Professor Of Public Administration Felicia Mccann MD - Internal Care Team Information Professor Of Public Administration Medicine Problems Active Problems Provider Date Generalized [...] needed 3Boxes C18.9 Urbano Steven NP 2018 [place] Lock 2 3/4 Change as needed 12Boxes C18.9 Urbano Steven NP 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 Immunizations CPT Code Status Date Vaccine Reaction Lot # [id number] Given 04/13/2019 Influenza Virus Vaccine, Quadrivalent, Split, Preservative Free 26871 Given 04/03/2018 Influenza Virus Vaccine, Quadrivalent, Split, Preservative Free 67021 Given 07/17/2017 Fluzone High Dose 56993 Given 11/05/2016 Pneumococcal Conjugate noimmedate reaction [id number] Vaccine 13 Valent For noted, pt tolerated Intramuscular Use well ... hh Q2039 Given 04/03/2016 Flu Vaccine NOS 88790 Given 03/15/2013 Flu Vaccine Split Virus [id number] Preservative Free For Indiv 3Yr Older 44867 Given 09/26/2008 Pneumonia Vaccine Vital Signs Date [...] Result H/L Range Note Laboratory test 08/28/2019 [facility] Lactic Acid 1.5 mmol/L Normal 0.5-2.0 [address] [place] [address] [phone] CBC Auto Diff 08/28/2019 [facility] White Blood 9.2 10^3/uL Normal 3.5-10.[address] [place] [address] [phone] Red Blood Count 4.62 10^6/uL Normal 4.18-5.48 [...] Cells % 0.1 Comp Metabolic Panel 08/28/2019 [facility] Sodium 133 mmol/L Low 135-[address] [place] [address] [phone] Potassium 4.2 mmol/L Normal 3.5-5.0 Chloride 99 [...] Egfr 95.1 >60 2 Laboratory test 08/28/2019 [facility] Magnesium 1.4 mg/dL Low 1.9-2.7 finding [address] [place] [address] [phone] Lipase < 10 U/L Low 11.0-82.0 C Reactive Protein 11.28 mg/L High <8.01 Comp Metabolic Panel 08/23/2019 [facility] Sodium 131 mmol/L Low 135-[address] [place] [address] [phone] Potassium 4.1 mmol/L Normal 3.5-5.0 Chloride 93 [...] Egfr 83.6 >60 3 Laboratory test 08/23/2019 [facility] Magnesium 1.4 mg/dL Low 1.9-2.7 finding [address] [place] [address] [phone] Lipase < 10 U/L Low 11.0-82.0 C Reactive Protein 25.72 mg/L High <8.01 Lactic Acid 1.4 mmol/L Normal 0.5-2.0 4 CBC Auto 08/23/2019 [facility] White Blood 12.8 10^3/uL High 3.5-10.[address] [place] [address] [phone] Red Blood Count 4.55 10^6/uL Normal 4.18-5.48 [...] Cells % 0.0 Comp Metabolic Panel 08/15/2019 [facility] Sodium 130 mmol/L Low 135-[address] [place] [address] [phone] Potassium 4.3 mmol/L Normal 3.5-5.0 Chloride 93 [...] Egfr 105.5 >60 5 Laboratory test 08/15/2019 [facility] Lipase 26 U/L Normal 11.0-82.[address] [place], [place] [address] [phone] CBC Auto Diff 08/15/2019 [facility] White Blood 8.4 Normal 3.5 -10.[address] Count 10^3/[place] [address] [phone] Red Blood Count 5.27 10^6/uL Normal 4.18-5.48 [...] Nucleated Red Blood Cells % 0.0 1 [facility] Severe Sepsis and Septic Shock Management Bundle [...] 5 Kidney failure <15 (or dialysis) 4 [facility] Severe Sepsis and Septic Shock Management Bundle [...] dialysis) Procedures Date Code Description Status 05/18/2018 [id number] Colonoscopy Completed 04/25/2013 [id number] Colonoscopy Completed 04/20/2013 [id number] Colonoscopy Completed Medical Devices Description No Information Available Encounters Type Date Location Provider Dx Diagnosis Office Visit 08/24/2019 [facility] K56.609 Unsp intestnl 10:33a Assoc,andreas Vega NP obst, unsp as to Hospitalists partial versus complete obst E87.1 Hypo-osmolality and hyponatremia Office Visit 08/23/2019 10:27a [facility] Corrie K56.609 Unsp intestnl Assoc,andreas Vega NP obst, unsp as Hospitalists to partial versus complete obst E87.1 Hypo-osmolality and hyponatremia Z93.3 Colostomy status E83.42 Hypomagnesemia Office Visit 08/19/2019 7:00a Surgical Jalil Kingsley K56.609 Unsp intestnl [facility] Me[facility] PA-C obst, unsp as to partial versus complete obst Z93.3 Colostomy status Office Visit 08/18/2019 11:06a [facility] K56.609 Unsp intestnl Assoc,andreas Cortes D.O. obst, unsp as Hospitalists to partial versus complete obst Z93.3 Colostomy status Office Visit 08/18/2019 7:00a Surgical Pepe Boles K56.609 Unsp intestnl [facility] Doug[facility] MD obst, unsp as to partial versus complete obst Z93.3 Colostomy status Office Visit 08/17/2019 11:05a [facility] K56.609 Unsp intestnl Assoc,andreas Cortes D.O. obst, unsp as Hospitalists to partial versus complete obst Z93.3 Colostomy status Office Visit 08/17/2019 7:00a Surgical Jalil Kingsley K56.609 Unsp intestnl [facility] Mej[facility] PA-C obst, unsp as to partial versus complete obst Z93.3 Colostomy status Office Visit 08/16/2019 11:05a [facility] K56.609 Unsp intestnl Assoc,andreas Cortes D.O. obst, unsp as Hospitalists to partial versus complete obst Z93.3 Colostomy status Office Visit 08/16/2019 7:00a Surgical Pepe Boles K56.609 Unsp intestnl [facility] MD obst, unsp as to partial versus complete obst Z93.3 Colostomy status Assessments Date Code Description Provider 08/31/2019 K56.609 Unspecified intestinal obstruction, Clare Lefty, MD unspecified as to partial versus complete obstruction 08/26/2019 K56.609 Unspecified intestinal obstruction, Corrie Vega, CONNECTION WORKER unspecified as to partial versus complete obstruction 08/26/2019 E87.1 Hypo-osmolality and hyponatremia Corrie Vega, CONNECTION WORKER 08/26/2019 Z93.3 Colostomy status Corrie Silvia, CONNECTION WORKER 08/25/2019 K56.609 Unspecified intestinal obstruction, Corrie Vega, CONNECTION WORKER unspecified as to partial versus complete obstruction 08/25/2019 E87.1 Hypo-osmolality and hyponatremia Corrie Alvarezckney, CONNECTION WORKER 08/25/2019 Z93.3 Colostomy status Corrie Alvarezckney, CONNECTION WORKER 08/24/2019 K56.609 Unspecified intestinal obstruction, Corrie Vega, CONNECTION WORKER unspecified as to partial versus complete obstruction 08/24/2019 E87.1 Hypo-osmolality and hyponatremia Corrie Vega, CONNECTION WORKER 08/23/2019 K56.609 Unspecified intestinal obstruction, Corrie Vega, CONNECTION WORKER unspecified as to partial versus complete obstruction 08/23/2019 E87.1 Hypo-osmolality and hyponatremia Corrie Vgea, CONNECTION WORKER 08/23/2019 Z93.3 Colostomy status Corrie Vega, CONNECTION WORKER 08/23/2019 E83.42 Hypomagnesemia Corrie Vega, CONNECTION WORKER 08/19/2019 K56.609 Unspecified intestinal obstruction, TERESO [...] 11:00 am - Urbano Steven [facility] Clare Olea MDK56.609 Unspecified intestinal obstruction, unspecified as to partial versus complete obstructionNew Medication :Ensure Clear - four times a day as neededFollow up:Please follow-up as needed. Functional Status Description No Information Available Mental Status Description No Information Available Referrals Description No Information Available
--- OUTSIDE RECORDS SUMMARY | 2019-09-13 14:00 | XMS REPORT | Continuity of Care Document ---
:1940 External Reference #:[id number] Author Name Leny Arana MD (transmitted by agent of provider Jeanette Castillo) Address [address] [place] [address] Care Team Providers Name Role Phone Remedios Caal MD - Hematology & Care Team Information Last Greaser Oncology Joaquin Stroud MD - Gastroenterology Care Team Information Last Greaser [phone] Felicia Mccann MD - Internal Care Team Information Last Greaser Medicine Problems Active Problems Provider Date Carcinoma [...] Change as needed 3Boxes C18.9 Urbano Steven, KETTLEMAN 2018 [employer] Lock 2 3/4 Change as needed 12Boxes C18.9 Urbano Steven, KETTLEMAN 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 Immunizations CPT Code Status Date Vaccine Reaction Lot # [id number] Given 04/13/2019 Influenza Virus Vaccine, Quadrivalent, Split, Preservative Free 62351 Given 04/03/2018 Influenza Virus Vaccine, Quadrivalent, Split, Preservative Free 52219 Given 07/17/2017 Fluzone High Dose 09006 Given 11/05/2016 Pneumococcal Conjugate noimmedate reaction [id number] Vaccine 13 Valent For noted, pt tolerated Intramuscular Use well ... hh Q2039 Given 04/03/2016 Flu Vaccine NOS 36821 Given 03/15/2013 Flu Vaccine Split Virus [id number] Preservative Free For Indiv 3Yr Older 57710 Given 09/26/2008 Pneumonia Vaccine Vital Signs Date [...] Result H/L Range Note Laboratory test 08/28/2019 [facility] Lactic Acid 1.5 mmol/L Normal 0.5-2.0 [address] [place] [address] [phone] CBC Auto Diff 08/28/2019 [facility] White Blood 9.2 10^3/uL Normal 3.5-10.[address] [place] [address] [phone] Red Blood Count 4.62 10^6/uL Normal 4.18-5.48 [...] Cells % 0.1 Comp Metabolic Panel 08/28/2019 [facility] Sodium 133 mmol/L Low 135-[address] [place] [address] [phone] Potassium 4.2 mmol/L Normal 3.5-5.0 Chloride 99 [...] Egfr 95.1 >60 2 Laboratory test 08/28/2019 [facility] Magnesium 1.4 mg/dL Low 1.9-2.7 finding [address] [place] [address] [phone] Lipase < 10 U/L Low 11.0-82.0 C Reactive Protein 11.28 mg/L High <8.01 Comp Metabolic Panel 08/23/2019 [facility] Sodium 131 mmol/L Low 135-145 [address] [place] [address] [phone] Potassium 4.1 mmol/L Normal 3.5-5.0 Chloride 93 [...] Egfr 83.6 >60 3 Laboratory test 08/23/2019 [facility] Magnesium 1.4 mg/dL Low 1.9-2.7 finding [address] [place] [address] [phone] Lipase < 10 U/L Low 11.0-82.0 C Reactive Protein 25.72 mg/L High <8.01 Lactic Acid 1.4 mmol/L Normal 0.5-2.0 4 CBC Auto 08/23/2019 [facility] White Blood 12.8 10^3/uL High 3.5-10.[address] [place] [address] [phone] Red Blood Count 4.55 10^6/uL Normal 4.18-5.48 [...] Cells % 0.0 Comp Metabolic Panel 08/15/2019 [facility] Sodium 130 mmol/L Low 135-145 [address] [place] [address] [phone] Potassium 4.3 mmol/L Normal 3.5-5.0 Chloride 93 [...] Egfr 105.5 >60 5 Laboratory test 08/15/2019 [facility] Lipase 26 U/L Normal 11.0-82.[address] [place] [address] [phone] CBC Auto Diff 08/15/2019 [facility] White Blood 8.4 Normal 3.5 -10.[address] Count 10^3/[place] [address] [phone] Red Blood Count 5.27 10^6/uL Normal 4.18-5.48 [...] Nucleated Red Blood Cells % 0.0 1 [facility] Severe Sepsis and Septic Shock [...] 5 Kidney failure <15 (or dialysis) 4 [facility] Severe Sepsis and Septic Shock [...] dialysis) Procedures Date Code Description Status 05/18/2018 [id number] Colonoscopy Completed 04/25/2013 [id number] Colonoscopy Completed 04/20/2013 [id number] Colonoscopy Completed Medical Devices Description No Information Available Encounters Type Date Location Provider Dx Diagnosis Office Visit 08/[facility] Clare Olea MD K56.609 Unsp intestnl 11[facility], unsp as to partial versus complete obst Office Visit 08/26/2019 [facility] Corrie K56.609 Unsp intestnl 10:34a Assoc,pc Silvia, KETTLEMAN obst, unsp as to Hospitalists partial versus complete obst E87.1 Hypo-osmolality and hyponatremia Z93.3 Colostomy status [facility] Assoc,pc Silvia, POORNIMA obst, unsp as Hospitalists to partial versus complete obst E87.1 Hypo-osmolality and hyponatremia Z93.3 Colostomy status Office Visit 08/24/2019 10:33a [facility] Corrie K56.609 Unsp intestnl Assoc,andreas Vega, POORNIMA obst, unsp as Hospitalists to partial versus complete obst E87.1 Hypo-osmolality and hyponatremia Office Visit 08/23/2019 7:00a [facility] Leny Arana MD K56.609 Unsp [facility]nl [facility] obst, unsp as to partial versus complete obst Office Visit 08/23/2019 10:27a [facility] Corrie K56.609 Unsp intestnl Assoc,andreas Vega, POORNIMA obst, unsp as Hospitalists to partial versus complete obst E87.1 Hypo-osmolality and hyponatremia Z93.3 Colostomy status E83.42 Hypomagnesemia Office Visit 08/19/2019 11:06a [facility] Debra Martin K56.609 Unsp intestnl Assoc,andreas Lomax obst, unsp as Hospitalists to partial versus complete obst Office Visit 08/19/2019 7:00a Surgical Jalil Kingsley K56.609 Unsp intestnl [facility] SHIRA Mejia obst, unsp as to partial versus complete obst Z93.3 Colostomy status Office Visit 08/18/2019 11:06a [facility] [place] K56.609 Unsp intestnl Assoc,pc Misti Cortes obst, unsp as Hospitalists to partial versus complete obst Z93.3 Colostomy status Office Visit 08/18/2019 7:00a Surgical Pepe Boles K56.609 Unsp intestnl [facility] MD Rafat obst, unsp as to partial versus complete obst Z93.3 Colostomy status Office Visit 08/17/2019 11:05a [facility] [place] K56.609 Unsp intestnl Assoc,andreas Cortes D.O. obst, unsp as Hospitalists to partial versus complete obst Z93.3 Colostomy status Office Visit 08/17/2019 7:00a Surgical Jalil Kingsley K56.609 Unsp intestnl [facility] SHIRA Mejia obst, unsp as to partial versus complete obst Z93.3 Colostomy status [facility] Assoc,pc Puja CortesO. obst, unsp as Hospitalists to partial versus complete obst Z93.3 Colostomy status Office Visit 08/16/2019 7:00a Surgical Pepe Boles K56.609 Unsp intestnl [facility] MD Rafat obst, unsp as to partial versus complete obst Z93.3 Colostomy status [facility] Assoc,Puja AcuñaO. obst, unsp as Hospitalists to partial versus [...] Vega NP 08/25/2019 K56.609 Unspecified intestinal obstruction, TERESO Patricia unspecified as to partial versus complete obstruction 08/25/2019 K56.609 Unspecified intestinal obstruction, Corrie Vega, KETTLEMAN unspecified as to partial versus complete obstruction 08/25/2019 E87.1 Hypo-osmolality and hyponatremia Corrie Vega, KETTLEMAN 08/25/2019 Z93.3 Colostomy status Corrie Vega, KETTLEMAN 08/24/2019 K56.609 Unspecified intestinal obstruction, Leny Arana MD unspecified as to partial versus complete obstruction 08/24/2019 K56.609 Unspecified intestinal obstruction, Corrie Vega, KETTLEMAN unspecified as to partial versus complete obstruction 08/24/2019 E87.1 Hypo-osmolality and hyponatremia Corrie Vega, KETTLEMAN 08/23/2019 K56.609 Unspecified intestinal obstruction, Leny Arana MD unspecified as to partial versus complete obstruction 08/23/2019 K56.609 Unspecified intestinal obstruction, Corrie Vega, KETTLEMAN unspecified as to partial versus complete obstruction 08/23/2019 E87.1 Hypo-osmolality and hyponatremia Corrie Vega, KETTLEMAN 08/23/2019 Z93.3 Colostomy status Corrie Vega, KETTLEMAN 08/23/2019 E83.42 Hypomagnesemia Corrie Vega, KETTLEMAN 08/19/2019 K56.609 Unspecified intestinal obstruction, Debra Martin M.D. unspecified as to partial versus complete obstruction 08/19/2019 K56.609 Unspecified intestinal obstruction, TERESO Patriica unspecified as to partial versus complete obstruction [...] Mejia PA-C 08/17/2019 Z93.3 Colostomy status Puja CocrhanO. 08/16/2019 K56.609 Unspecified intestinal obstruction, Pepe Douglass [...] 11:00 am - [facility] Clare Olea MDK56.609 Unspecified intestinal obstruction, unspecified as to partial versus complete obstructionNew Medication :Ensure Clear - four times a day as neededFollow up:Please follow-up as needed. Functional Status Description No Information Available Mental Status Description No Information Available Referrals Description No Information Available
--- OUTSIDE RECORDS SUMMARY | 2019-09-13 14:00 | XMS REPORT | Continuity of Care Document ---
:1940 External Reference #:[id number] Author Name Clare Olea MD (transmitted by agent of provider Jeanette Castillo) Address [address], [place] [address] Care Team Providers Name Role Phone Remedios Caal MD - Hematology & Care Team Information Business Planner Oncology Joaquin Stroud MD - Gastroenterology Care Team Information Business Planner [phone] Felicia Mccann MD - Internal Care Team Information Business Planner Medicine Problems Active Problems Provider Date Generalized osteoarthritis of the hand Janee Mnotelongo M.D. Onset: 03/15/2013 Carcinoma in situ of [...] Change as needed 3Boxes C18.9 Urbano Steven, TICKET COLLECTOR 2018 [place] Lock 2 3/4 Change as needed 12Boxes C18.9 Urbano Steven, TICKET COLLECTOR Z93.3 Stomahesive Paste use as needed 3Tubes C18.9 Urbano Maurizio, TICKET COLLECTOR 09/13/2018 Z93.3 Zofran 4mg take 1 tab every 6 hours as Unknown 00/00 /0000 Tablets needed for vomiting. Immunizations CPT Code Status Date Vaccine Reaction Lot # [id number] Given 04/13/2019 Influenza Virus Vaccine, Quadrivalent, Split, Preservative Free 13505 Given 04/03/2018 Influenza Virus Vaccine, Quadrivalent, Split, Preservative Free 08358 Given 07/17/2017 Fluzone High Dose 12267 Given 11/05/2016 Pneumococcal Conjugate noimmedate reaction [id number] Vaccine 13 Valent For noted, pt tolerated Intramuscular Use well ... hh Q2039 Given 04/03/2016 Flu Vaccine NOS 24127 Given 03/15/2013 Flu Vaccine Split Virus [id number] Preservative Free For Indiv 3Yr Older 66488 Given 09/26/2008 Pneumonia Vaccine Vital Signs Date [...] Result H/L Range Note Laboratory test 08/28/2019 [facility] Lactic Acid 1.5 mmol/L Normal 0.5-2.0 [address] [place] [address] [phone] CBC Auto Diff 08/28/2019 [facility] White Blood 9.2 10^3/uL Normal 3.5-10.[address] [place] [address] [phone] Red Blood Count 4.62 10^6/uL Normal 4.18-5.48 [...] Cells % 0.1 Comp Metabolic Panel 08/28/2019 [facility] Sodium 133 mmol/L Low 135-[address] [place] [address] [phone] Potassium 4.2 mmol/L Normal 3.5-5.0 Chloride 99 [...] Egfr 95.1 >60 2 Laboratory test 08/28/2019 [facility] Magnesium 1.4 mg/dL Low 1.9-2.7 finding [address] [place] [address] [phone] Lipase < 10 U/L Low 11.0-82.0 C Reactive Protein 11.28 mg/L High <8.01 Comp Metabolic Panel 08/23/2019 [facility] Sodium 131 mmol/L Low 135-145 [address] [place] [address] [phone] Potassium 4.1 mmol/L Normal 3.5-5.0 Chloride 93 [...] Egfr 83.6 >60 3 Laboratory test 08/23/2019 [facility] Magnesium 1.4 mg/dL Low 1.9-2.7 finding [address] [place] [address] [phone] Lipase < 10 U/L Low 11.0-82.0 C Reactive Protein 25.72 mg/L High <8.01 Lactic Acid 1.4 mmol/L Normal 0.5-2.0 4 CBC Auto 08/23/2019 [facility] White Blood 12.8 10^3/uL High 3.5-10.[address] [place] [address] [phone] Red Blood Count 4.55 10^6/uL Normal 4.18-5.48 [...] Cells % 0.0 Comp Metabolic Panel 08/15/2019 [facility] Sodium 130 mmol/L Low 135-145 [address] [place] [address] [phone] Potassium 4.3 mmol/L Normal 3.5-5.0 Chloride 93 [...] Egfr 105.5 >60 5 Laboratory test 08/15/2019 [facility] Lipase 26 U/L Normal 11.0-82.[address] [place] [address] [phone] CBC Auto Diff 08/15/2019 [facility] White Blood 8.4 Normal 3.5 -10.[address] Count 10^3/[place] [address] [phone] Red Blood Count 5.27 10^6/uL Normal 4.18-5.48 [...] Nucleated Red Blood Cells % 0.[address] [facility] Severe Sepsis and Septic Shock Management [...] 5 Kidney failure <15 (or dialysis) 4 [facility] Severe Sepsis and Septic Shock Management [...] dialysis) Procedures Date Code Description Status 05/18/2018 [id number] Colonoscopy Completed 04/25/2013 [id number] Colonoscopy Completed 04/20/2013 [id number] Colonoscopy Completed Medical Devices Description No Information Available Encounters Type Date Location Provider Dx Diagnosis Office Visit 08/[facility] Clare Olea MD K56.609 Unsp intestnl 11:30a [facility] obst, unsp as to partial versus complete obst [facility] Assoc,andreas Vega, TICKET COLLECTOR obst, unsp as to Hospitalists partial versus complete obst E87.1 Hypo-osmolality and hyponatremia Z93.3 Colostomy status Office Visit 08/25/2019 10:33a [facility] Corrie K56.609 Unsp intestnl Assoc,andreas Vega, TICKET COLLECTOR obst, unsp as Hospitalists to partial versus complete obst E87.1 Hypo-osmolality and hyponatremia Z93.3 Colostomy status Office Visit 08/24/2019 10:33a [facility] Corrie K56.609 Unsp intestnl Assoc,andreas Vega, TICKET COLLECTOR obst, unsp as Hospitalists to partial versus complete obst E87.1 Hypo-osmolality and hyponatremia Office Visit 08/23/2019 [facility] K[facility]sp [facility]nl Assoc,andreas Vega, TICKET COLLECTOR obst, unsp as Hospitalists to partial versus complete obst E87.1 Hypo-osmolality and hyponatremia Z93.3 Colostomy status E83.42 Hypomagnesemia Office Visit 08/19/2019 7:00a Surgical Jalil Kingsley K56.609 Unsp intestnl [facility] SHIRA Mejia obst, unsp as to partial versus complete obst Z93.3 Colostomy status [facility] Assoc,andreas Cortes D.O. obst, unsp as Hospitalists to partial versus complete obst Z93.3 Colostomy status Office Visit 08/18/2019 7:00a Surgical Pepe Boles K56.609 Unsp intestnl [facility] MD Rafat obst, unsp as to partial versus complete obst Z93.3 Colostomy status Office Visit 08/17/2019 11:05a [facility] K56.609 Unsp intestnl Assoc,Puja AcuñaO. obst, unsp as Hospitalists to partial versus complete obst Z93.3 Colostomy status Office Visit 08/17/2019 7:00a Surgical Jalil Kingsley K56.609 [facility] SHIRA Mejia obst, unsp as to partial versus complete obst Z93.3 Colostomy status Office Visit 08/16/2019 11:05a [facility] [place] K56.609 [facility] Assoc,andreas Cortes D.O. obst, unsp as Hospitalists to partial versus complete obst Z93.3 Colostomy status Office Visit 08/16/2019 7:00a Surgical Pepe Boles K56.609 [facility] intest [facility] MD Rafat obst, unsp as to partial versus complete obst Z93.3 Colostomy status Assessments Date Code Description Provider 08/31/2019 K56.609 Unspecified intestinal obstruction, Clare Olea MD unspecified as to partial versus complete obstruction 08/26/2019 K56.609 Unspecified intestinal obstruction, Corrie Silvia, TICKET COLLECTOR unspecified as to partial versus complete obstruction 08/26/2019 E87.1 Hypo-osmolality and hyponatremia Corrie Silvia, TICKET COLLECTOR 08/26/2019 Z93.3 Colostomy status Corrie [place], TICKET COLLECTOR 08/25/2019 K56.609 Unspecified intestinal obstruction, Corrie [place], TICKET COLLECTOR unspecified as to partial versus complete obstruction 08/25/2019 E87.1 Hypo-osmolality and hyponatremia Corrie Silvia, TICKET COLLECTOR 08/25/2019 Z93.3 Colostomy status Corrie Silvia, TICKET COLLECTOR 08/24/2019 K56.609 Unspecified intestinal obstruction, Corrie Silvia, TICKET COLLECTOR unspecified as to partial versus complete obstruction 08/24/2019 E87.1 Hypo-osmolality and hyponatremia Corrie Silvia, TICKET COLLECTOR 08/23/2019 K56.609 Unspecified intestinal obstruction, Corrie Silvia, TICKET COLLECTOR unspecified as to partial versus complete obstruction 08/23/2019 E87.1 Hypo-osmolality and hyponatremia Corrie Silvia, TICKET COLLECTOR 08/23/2019 Z93.3 Colostomy status Corrie Silvia, TICKET COLLECTOR 08/23/2019 E83.42 Hypomagnesemia Corrie Silvia, TICKET COLLECTOR 08/19/2019 K56.609 Unspecified intestinal obstruction, TERESO Patricia [...] 11:00 am - Urbano Steven NP at [facility] Clare Olea MDK56.609 Unspecified intestinal obstruction, unspecified as to partial versus complete obstructionNew Medication :Ensure Clear - four times a day as neededFollow up:Please follow-up as needed. Functional Status Description No Information Available Mental Status Description No Information Available Referrals Description No Information Available
--- OUTSIDE RECORDS SUMMARY | 2019-09-13 14:00 | XMS REPORT | Continuity of Care Document ---
:1940 External Reference #:[id number] Author Name Corrie Vega NP (transmitted by agent of provider Analy Cristina) Address [address] [place] [address] Care Team Providers Name Role Phone Remedios Caal MD - Hematology & Care Team Information Chapter Relations Administrator Oncology Joaquin Stroud MD - Gastroenterology Care Team Information Chapter Relations Administrator Felicia Mccann MD - Internal Care Team Information Chapter Relations Administrator Medicine Problems Active Problems Provider Date Generalized [...] needed 3Boxes C18.9 Urbano Steven NP [address] [place] [address] 2 3/4 Change as needed 12Boxes C18.9 Urbano Steven NP 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 Immunizations CPT Code Status Date Vaccine Reaction Lot # [id number] Given 04/13/2019 Influenza Virus Vaccine, Quadrivalent, Split, Preservative Free [id number] Given 04/03/2018 Influenza Virus Vaccine, Quadrivalent, Split, Preservative Free 85118 Given 07/17/2017 Fluzone High Dose 92613 Given 11/05/2016 Pneumococcal Conjugate noimmedate reaction [id number] Vaccine 13 Valent For noted, pt tolerated Intramuscular Use well ... hh Q2039 Given 04/03/2016 Flu Vaccine NOS 39118 Given 03/15/2013 Flu Vaccine Split Virus [id number] Preservative Free For Indiv 3Yr Older 35773 Given 09/26/2008 Pneumonia Vaccine Vital Signs Date [...] Range Note Laboratory test 08/28/2019 [facility] Lactic Acid 1.5 mmol/L Normal 0.5-2.0 [address] [place] [address] [phone] CBC Auto Diff 08/28/2019 [facility] White Blood 9.2 10^3/uL Normal 3.5-10.[address] [place] [address] [phone] Red Blood Count 4.62 10^6/uL Normal 4.18-5.48 [...] 0.1 Comp Metabolic Panel 08/28/2019 [facility] Sodium 133 mmol/L Low 135-[address] [place] [address] [phone] Potassium 4.2 mmol/L Normal 3.5-5.0 Chloride 99 [...] >60 2 Laboratory test 08/28/2019 [facility] Magnesium 1.4 mg/dL Low 1.9-2.7 finding [address] [place] [address] [phone] Lipase < 10 U/L Low 11.0-82.0 C Reactive Protein 11.28 mg/L High <8.01 Comp Metabolic Panel 08/23/2019 [facility] Sodium 131 mmol/L Low 135-[address] [place] [address] [phone] Potassium 4.1 mmol/L Normal 3.5-5.0 Chloride 93 [...] >60 3 Laboratory test 08/23/2019 [facility] Magnesium 1.4 mg/dL Low 1.9-2.7 finding [address] [place] [address] [phone] Lipase < 10 U/L Low 11.0-82.0 C Reactive Protein 25.72 mg/L High <8.01 Lactic Acid 1.4 mmol/L Normal 0.5-2.0 4 CBC Auto 08/23/2019 [facility] White Blood 12.8 10^3/uL High 3.5-10.[address] [place] [address] [phone] Red Blood Count 4.55 10^6/uL Normal 4.18-5.48 [...] 0.0 Comp Metabolic Panel 08/15/2019 [facility] Sodium 130 mmol/L Low 135-[address] [place] [address] [phone] Potassium 4.3 mmol/L Normal 3.5-5.0 Chloride 93 [...] >60 5 Laboratory test 08/15/2019 [facility] Lipase 26 U/L Normal 11.0-82.[address] [place], [place] [id number] [phone] CBC Auto Diff 08/15/2019 [facility] White Blood 8.4 Normal 3.5 -10.[address] Count 10^3/[place] [address] [phone] Red Blood Count 5.27 10^6/uL Normal 4.18-5.48 [...] Nucleated Red Blood Cells % 0.0 1 [facility] Severe Sepsis and Septic Shock [...] 5 Kidney failure <15 (or dialysis) 4 [facility] Severe Sepsis and Septic Shock [...] dialysis) Procedures Date Code Description Status 05/18/2018 [id number] Colonoscopy Completed 04/25/2013 [id number] Colonoscopy Completed 04/20/2013 [id number] Colonoscopy Completed Medical Devices Description No Information Available Encounters Type Date Location Provider Dx Diagnosis Office Visit 08/26/2019 [facility] K56.609 Unsp intestnl 10:34a Assoc,pc Silvia, INSTRUCTOR OF NURSING obst, unsp as to Hospitalists partial versus complete obst E87.1 Hypo-osmolality and hyponatremia Z93.3 Colostomy status Office Visit 08/25/2019 10:33a [facility] K56.609 Unsp intestnl Assoc,pc Silvia, INSTRUCTOR OF NURSING obst, unsp as Hospitalists to partial versus complete obst E87.1 Hypo-osmolality and hyponatremia Z93.3 Colostomy status Office Visit 08/24/2019 10:33a [facility] K56.609 Unsp intestnl Assoc,pc Silvia, INSTRUCTOR OF NURSING obst, unsp as Hospitalists to partial versus complete obst E87.1 Hypo-osmolality and hyponatremia Office Visit 08/23/2019 10:27a [facility] K56.609 Unsp intestnl Assoc,andreas Vega, INSTRUCTOR OF NURSING obst, unsp as Hospitalists to partial versus complete obst E87.1 Hypo-osmolality and hyponatremia Z93.3 Colostomy status E83.42 Hypomagnesemia Office Visit 08/19/2019 7:00a Surgical Jalil Kingsley K56.609 Unsp intestnl [facility]-C obst, unsp as to partial versus complete obst Z93.3 Colostomy status Office Visit 08/18/2019 11:06a [facility] K56.609 Unsp intestnl Assoc,andreas Cortes D.O. obst, unsp as Hospitalists to partial versus complete obst Z93.3 Colostomy status Office Visit 08/18/2019 7:00a Surgical Pepe Boles K56.609 Unsp intestnl [facility] MD obst, unsp as to partial versus complete obst Z93.3 Colostomy status Office Visit 08/17/2019 11:05a [facility] K56.609 Unsp intestnl Assoc,andreas Cortes D.O. obst, unsp as Hospitalists to partial versus complete obst Z93.3 Colostomy status Office Visit 08/17/2019 7:00a Surgical Jalil Kingsley K56.609 Unsp intestnl [facility] obst, unsp as to partial versus complete obst Z93.3 Colostomy status Office Visit 08/16/2019 11:05a [facility] [place] K56.609 [facility],Misti Acuña, unsp as Hospitalists to partial versus complete obst Z93.3 Colostomy status Office Visit 08/16/2019 7:00a [facility] Pepe Boles K56.609 [facility] MD jovita Mishra, unsp as to partial versus complete obst Z93.3 Colostomy status Assessments Date Code Description Provider 08/31/2019 K56.609 Unspecified intestinal obstruction, Clare Olea MD unspecified as to partial versus complete obstruction 08/26/2019 K56.609 Unspecified intestinal obstruction, Corrie [place], INSTRUCTOR OF NURSING unspecified as to partial versus complete obstruction 08/26/2019 E87.1 Hypo-osmolality and hyponatremia Corrie [place], INSTRUCTOR OF NURSING 08/26/2019 Z93.3 Colostomy status Corrie Silvia, INSTRUCTOR OF NURSING 08/25/2019 K56.609 Unspecified intestinal obstruction, Corrie Silvia, INSTRUCTOR OF NURSING unspecified as to partial versus complete obstruction 08/25/2019 E87.1 Hypo-osmolality and hyponatremia Corrie [place]via, INSTRUCTOR OF NURSING 08/25/2019 Z93.3 Colostomy status Corrie Silvia, INSTRUCTOR OF NURSING 08/24/2019 K56.609 Unspecified intestinal obstruction, Corrie [place], INSTRUCTOR OF NURSING unspecified as to partial versus complete obstruction 08/24/2019 E87.1 Hypo-osmolality and hyponatremia Corrie [place], INSTRUCTOR OF NURSING 08/23/2019 K56.609 Unspecified intestinal obstruction, Corrie [place], INSTRUCTOR OF NURSING unspecified as to partial versus complete obstruction 08/23/2019 E87.1 Hypo-osmolality and hyponatremia Corrie [place], INSTRUCTOR OF NURSING 08/23/2019 Z93.3 Colostomy status Corrie [place], INSTRUCTOR OF NURSING 08/23/2019 E83.42 Hypomagnesemia Corrie Silvia, INSTRUCTOR OF NURSING 08/19/2019 K56.609 Unspecified intestinal obstruction, TERESO Patricia [...] 11:00 am - Urbano Steven NP at [facility] Clare Olea MDK56.609 Unspecified intestinal obstruction, unspecified as to partial versus complete obstructionNew Medication :Ensure Clear - four times a day as neededFollow up:Please follow-up as needed. Functional Status Description No Information Available Mental Status Description No Information Available Referrals Description No Information Available
--- OUTSIDE RECORDS SUMMARY | 2019-09-13 14:00 | XMS REPORT | Continuity of Care Document ---
:1940 External Reference #:[id number] Author Name Leny Arana MD (transmitted by agent of provider Jeanette Castillo) Address [address] [place] [address] Care Team Providers Name Role Phone Remedios Caal MD - Hematology & Care Team Information Floor Covering Printer Oncology Joaquin Stroud MD - Gastroenterology Care Team Information Floor Covering Printer Felicia Mccann MD - Internal Care Team Information Floor Covering Printer [phone] Medicine Problems Active Problems Provider Date Carcinoma [...] Change as needed 3Boxes C18.9 Urbano Steven, STEAM BOX TENDER 2018 [place] [address] 2 3/4 Change as needed 12Boxes C18.9 Urbano Setven, STEAM BOX TENDER Z93.3 Stomahesive Paste use as needed 3Tubes C18.9 Urbano Maurizio, STEAM BOX TENDER 09/13/2018 Z93.3 Zofran 4mg take 1 tab every 6 hours as Unknown 00/00 /0000 Tablets needed for vomiting. Immunizations CPT Code Status Date Vaccine Reaction Lot # 86413 Given 04/13/2019 Influenza Virus Vaccine, Quadrivalent, Split, Preservative Free 02526 Given 04/03/2018 Influenza Virus Vaccine, Quadrivalent, Split, Preservative Free 56240 Given 07/17/2017 Fluzone High Dose 29140 Given 11/05/2016 Pneumococcal Conjugate noimmedate reaction [id number] Vaccine 13 Valent For noted, pt tolerated Intramuscular Use well ... hh Q2039 Given 04/03/2016 Flu Vaccine NOS 35115 Given 03/15/2013 Flu Vaccine Split Virus [id number] Preservative Free For Indiv 3Yr Older 22764 Given 09/26/2008 Pneumonia Vaccine Vital Signs Date [...] Result H/L Range Note Laboratory test 08/28/2019 [facility] Lactic Acid 1.5 mmol/L Normal 0.5-2.0 [address] [place] [address] [phone] CBC Auto Diff 08/28/2019 [facility] White Blood 9.2 10^3/uL Normal 3.5-10.[address] [place] [address] [phone] Red Blood Count 4.62 10^6/uL Normal 4.18-5.48 [...] Cells % 0.1 Comp Metabolic Panel 08/28/2019 [facility] Sodium 133 mmol/L Low 135-[address] [place] [address] [phone] Potassium 4.2 mmol/L Normal 3.5-5.0 Chloride 99 [...] Egfr 95.1 >60 2 Laboratory test 08/28/2019 [facility] Magnesium 1.4 mg/dL Low 1.9-2.7 finding [address] [place] [address] [phone] Lipase < 10 U/L Low 11.0-82.0 C Reactive Protein 11.28 mg/L High <8.01 Comp Metabolic Panel 08/23/2019 [facility] Sodium 131 mmol/L Low 135-145 [address] [place] [address] [phone] Potassium 4.1 mmol/L Normal 3.5-5.0 Chloride 93 [...] Egfr 83.6 >60 3 Laboratory test 08/23/2019 [facility] Magnesium 1.4 mg/dL Low 1.9-2.7 finding [address] [place] [address] [phone] Lipase < 10 U/L Low 11.0-82.0 C Reactive Protein 25.72 mg/L High <8.01 Lactic Acid 1.4 mmol/L Normal 0.5-2.0 4 CBC Auto 08/23/2019 [facility] White Blood 12.8 10^3/uL High 3.5-10.[address] [place] [address] [phone] Red Blood Count 4.55 10^6/uL Normal 4.18-5.48 [...] Cells % 0.0 Comp Metabolic Panel 08/15/2019 [facility] Sodium 130 mmol/L Low 135-145 [address] [place] [address] [phone] Potassium 4.3 mmol/L Normal 3.5-5.0 Chloride 93 [...] Egfr 105.5 >60 5 Laboratory test 08/15/2019 [facility] Lipase 26 U/L Normal 11.0-82.[address] [place] [address] [phone] CBC Auto Diff 08/15/2019 [facility] White Blood 8.4 Normal 3.5 -10.[address] Count 10^3/[place] [address] [phone] Red Blood Count 5.27 10^6/uL Normal 4.18-5.48 [...] Nucleated Red Blood Cells % 0.0 1 [facility] Severe Sepsis and Septic Shock Management Bundle [...] 5 Kidney failure <15 (or dialysis) 4 [facility] Severe Sepsis and Septic Shock Management Bundle [...] dialysis) Procedures Date Code Description Status 05/18/2018 [id number] Colonoscopy Completed 04/25/2013 [id number] Colonoscopy Completed 04/20/2013 [id number] Colonoscopy Completed Medical Devices Description No Information Available Encounters Type Date Location Provider Dx Diagnosis Office Visit 08/[facility] Clare Olea MD K56.609 Unsp intestnl 11:30a Of [facility] obst, unsp as to partial versus complete obst [facility]a Assoc,pc Silvia, STEAM BOX TENDER obst, unsp as to Hospitalists partial versus complete obst E87.1 Hypo-osmolality and hyponatremia Z93.3 Colostomy status [facility] K[facility] Assoc,pc Silvia, STEAM BOX TENDER obst, unsp as Hospitalists to partial versus complete obst E87.1 Hypo-osmolality and hyponatremia Z93.3 Colostomy status Office Visit 08/24/2019 7:00a [facility] Leny Arana MD K56.609 Unsp intestnl Of [facility] obst, unsp as to partial versus complete obst Office Visit [facility] K[facility]609 [facility] Assoc,pc Silvia, STEAM BOX TENDER obst, unsp as Hospitalists to partial versus complete obst E87.1 Hypo-osmolality and hyponatremia Office Visit 08/23/2019 7:00a [facility] Leny Arana MD K56.609 Unsp intestnl Of [facility] obst, unsp as to partial versus complete obst Office Visit [facility] K[facility].609 [facility] Assoc,pc Silvia, STEAM BOX TENDER obst, unsp as Hospitalists to partial versus complete obst E87.1 Hypo-osmolality and hyponatremia Z93.3 Colostomy status E83.42 Hypomagnesemia Office Visit 08/19/2019 11:06a [facility] Debra Martin K56.609 Unsp intestnl Assoc,andreas Lomax obst, unsp as Hospitalists to partial versus complete obst Office Visit 08/19/2019 7:00a Surgical Jalil Kingsley K56.609 Unsp intestnl [facility] SHIRA Mejia obst, unsp as to partial versus complete obst Z93.3 Colostomy status Office Visit 08/18/2019 11:06a [facility] [place] K56.609 Unsp intestnl Assoc,pc Misti Cortes obst, unsp as Hospitalists to partial versus complete obst Z93.3 Colostomy status Office Visit 08/18/2019 7:00a Surgical Pepe Boles K56.609 Unsp intestnl [facility] MD Rafat obst, unsp as to partial versus complete obst Z93.3 Colostomy status [facility] K[facility]609 [facility] Assoc,Puja AcuñaO. obst, unsp as Hospitalists to partial versus complete obst Z93.3 Colostomy status Office Visit 08/17/2019 7:00a Surgical Waqar K56.609 Unsp intestnl [facility] SHIRA Mejia obst, unsp as to partial versus complete obst Z93.3 Colostomy status Office Visit 08/16/2019 [facility] K56.609 Unsp int[facility]nl Assoc,andreas Cortes D.O. obst, unsp as Hospitalists to partial versus complete obst Z93.3 Colostomy status Office Visit 08/16/2019 7:00a Surgical Pepe Boles K56.609 Unsp intestnl [facility] MD Rafat obst, unsp as to partial versus complete obst Z93.3 Colostomy status Office Visit 08/15/2019 [facility]a [facility] K56.609 Unsp intestnl Assoc,Puja AcuñaO. obst, unsp [...] Vega NP 08/26/2019 Z93.3 Colostomy status Corrie Vega, STEAM BOX TENDER 08/25/2019 K56.609 Unspecified intestinal obstruction, TERESO Patricia unspecified as to partial versus complete obstruction 08/25/2019 K56.609 Unspecified intestinal obstruction, Corrie Vega, STEAM BOX TENDER unspecified as to partial versus complete obstruction 08/25/2019 E87.1 Hypo-osmolality and hyponatremia Corrie Vega, STEAM BOX TENDER 08/25/2019 Z93.3 Colostomy status Corrie Vega, STEAM BOX TENDER 08/24/2019 K56.609 Unspecified intestinal obstruction, Leny Arana MD unspecified as to partial versus complete obstruction 08/24/2019 K56.609 Unspecified intestinal obstruction, Corrie Vega, STEAM BOX TENDER unspecified as to partial versus complete obstruction 08/24/2019 E87.1 Hypo-osmolality and hyponatremia Corrie Vega, STEAM BOX TENDER 08/23/2019 K56.609 Unspecified intestinal obstruction, Leny Arana MD unspecified as to partial versus complete obstruction 08/23/2019 K56.609 Unspecified intestinal obstruction, Corrie Vega, STEAM BOX TENDER unspecified as to partial versus complete obstruction 08/23/2019 E87.1 Hypo-osmolality and hyponatremia Corrie Vega, STEAM BOX TENDER 08/23/2019 Z93.3 Colostomy status Corrie Vega, STEAM BOX TENDER 08/23/2019 E83.42 Hypomagnesemia Corrie Vega, STEAM BOX TENDER 08/19/2019 K56.609 Unspecified intestinal obstruction, Debra Martin [...] Puja CochranO. 08/15/2019 K56.609 Unspecified intestinal obstruction, Puja CochranO. unspecified as to partial versus complete obstruction 08/15/2019 E87.1 Hypo-osmolality and hyponatremia [place] Cortes D.O. Plan of Treatment Future Appointment(s):11/15/2019 11:00 am - Urbano Steven NP at [facility] Clare Olea MDK56.609 Unspecified intestinal obstruction, unspecified as to partial versus complete obstructionNew Medication :Ensure Clear - four times a day as neededFollow up:Please follow-up as needed. Functional Status Description No Information Available Mental Status Description No Information Available Referrals Description No Information Available
--- OUTSIDE RECORDS SUMMARY | 2019-09-13 14:00 | XMS REPORT | Continuity of Care Document ---
:1940 External Reference #:[id number] Author Name Debra Martin M.D. (transmitted by agent of provider Analy Cristina) Address [address] [place] [address] Care Team Providers Name Role Phone Remedios Caal MD - Hematology & Care Team Information Cork Insulator Helper Oncology Joaquin Stroud MD - Gastroenterology Care Team Information Cork Insulator Helper Felicia Mccann MD - Internal Care Team Information Cork Insulator Helper Medicine Problems Active Problems Provider Date Carcinoma [...] Change as needed 3Boxes C18.9 Urbano Steven HOUSEKEEPING SUPERVISOR 2018 Fellows Lock 2 3/4 Change as needed 12Boxes C18.9 Urbanomaggi Steven, HOUSEKEEPING SUPERVISOR Z93.3 Stomahesive Paste use as needed 3Tubes C18.9 Urbano Maurizio, HOUSEKEEPING SUPERVISOR 09/13/2018 Z93.3 Zofran 4mg take 1 tab every 6 hours as Unknown 00/00 /0000 Tablets needed for vomiting. Immunizations CPT Code Status Date Vaccine Reaction Lot # [id number] Given 04/13/2019 Influenza Virus Vaccine, Quadrivalent, Split, Preservative Free 48418 Given 04/03/2018 Influenza Virus Vaccine, Quadrivalent, Split, Preservative Free 24561 Given 07/17/2017 Fluzone High Dose 82476 Given 11/05/2016 Pneumococcal Conjugate noimmedate reaction [id number] Vaccine 13 Valent For noted, pt tolerated Intramuscular Use well ... hh Q2039 Given 04/03/2016 Flu Vaccine NOS 31480 Given 03/15/2013 Flu Vaccine Split Virus [id number] Preservative Free For Indiv 3Yr Older 17657 Given 09/26/2008 Pneumonia Vaccine Vital Signs Date [...] Result H/L Range Note Laboratory test 08/28/2019 [facility] Lactic Acid 1.5 mmol/L Normal 0.5-2.0 [address] [place] [address] [phone] CBC Auto Diff 08/28/2019 [facility] White Blood 9.2 10^3/uL Normal 3.5-10.[address] [place] [address] [phone] Red Blood Count 4.62 10^6/uL Normal 4.18-5.48 [...] Cells % 0.1 Comp Metabolic Panel 08/28/2019 [facility] Sodium 133 mmol/L Low 135-[address] [place] [address] [phone] Potassium 4.2 mmol/L Normal 3.5-5.0 Chloride 99 [...] Egfr 95.1 >60 2 Laboratory test 08/28/2019 [facility] Magnesium 1.4 mg/dL Low 1.9-2.7 finding [address] [place] [address] [phone] Lipase < 10 U/L Low 11.0-82.0 C Reactive Protein 11.28 mg/L High <8.01 Comp Metabolic Panel 08/23/2019 [facility] Sodium 131 mmol/L Low 135-[address] [place] [address] [phone] Potassium 4.1 mmol/L Normal 3.5-5.0 Chloride 93 [...] Egfr 83.6 >60 3 Laboratory test 08/23/2019 [facility] Magnesium 1.4 mg/dL Low 1.9-2.7 finding [address] [place] [address] [phone] Lipase < 10 U/L Low 11.0-82.0 C Reactive Protein 25.72 mg/L High <8.01 Lactic Acid 1.4 mmol/L Normal 0.5-2.0 4 CBC Auto 08/23/2019 [facility] White Blood 12.8 10^3/uL High 3.5-10.[address] [place] [address] [phone] Red Blood Count 4.55 10^6/uL Normal 4.18-5.48 [...] Cells % 0.0 Comp Metabolic Panel 08/15/2019 [facility] Sodium 130 mmol/L Low 135-145 [address] [place] [address] [phone] Potassium 4.3 mmol/L Normal 3.5-5.0 Chloride 93 [...] Egfr 105.5 >60 5 Laboratory test 08/15/2019 [facility] Lipase 26 U/L Normal 11.0-82.[address] [place] [address] [phone] CBC Auto Diff 08/15/2019 [facility] White Blood 8.4 Normal 3.5 -10.[address] Count 10^3/[place] [address] [phone] Red Blood Count 5.27 10^6/uL Normal 4.18-5.48 [...] Nucleated Red Blood Cells % 0.0 1 [facility] Severe Sepsis and Septic Shock [...] 5 Kidney failure <15 (or dialysis) 4 [facility] Severe Sepsis and Septic Shock [...] dialysis) Procedures Date Code Description Status 05/18/2018 [id number] Colonoscopy Completed 04/25/2013 [id number] Colonoscopy Completed 04/20/2013 [id number] Colonoscopy Completed Medical Devices Description No Information Available Encounters Type Date Location Provider Dx Diagnosis Office Visit 08/[facility] Clare Olea MD K56.609 Unsp intestnl 11:30a [facility] obst, unsp as to partial versus complete obst Office Visit 08/26/2019 [facility] Corrie K56.609 Unsp intestnl 10:34a Assoc,andreas Vega, [place] obst, unsp as to Hospitalists partial versus complete obst E87.1 Hypo-osmolality and hyponatremia Z93.3 Colostomy status Office Visit 08/25/2019 10:33a [facility] Corrie K56.609 Unsp intestnl Assoc,andreas Vega, POORNIM[place] obst, unsp as Hospitalists to partial versus complete obst E87.1 Hypo-osmolality and hyponatremia Z93.3 Colostomy status Office Visit 08/24/2019 10:33a [facility] Corrie K56.609 Unsp intestnl Assoc,andreas Vega, POORNIMA obst, unsp as Hospitalists to partial versus complete obst E87.1 Hypo-osmolality and hyponatremia [facility] Assoc,andreas Vega, POORNIMA obst, unsp as Hospitalists to partial versus complete obst E87.1 Hypo-osmolality and hyponatremia Z93.3 Colostomy status E83.42 Hypomagnesemia Office Visit 08/19/2019 11:06a [facility] Debra Mario, K56.609 Unsp intestnl Assoc,andreas Lomax obst, unsp as Hospitalists to partial versus complete obst Office Visit 08/19/2019 7:00a [facility] Jalil Kingsley K56.609 Unsp intestnl [facility] SHIRA Mejia obst, unsp as to partial versus complete obst Z93.3 Colostomy status Office Visit 08/18/2019 11:06a [facility] [place] K56.609 Unsp intestnl Assoc,andreas Cortes D.O. obst, unsp as Hospitalists to partial versus complete obst Z93.3 Colostomy status Office Visit 08/18/2019 7:00a Surgical Pepe Boles K56.609 Unsp intestnl [facility] MD Rafat obst, unsp as to partial versus complete obst Z93.3 Colostomy status Office Visit 08/17/2019 11:05a [facility] K56.609 Unsp intestnl Assoc,andreas Cortes D.O. obst, unsp as Hospitalists to partial versus complete obst Z93.3 Colostomy status Office Visit 08/17/2019 7:00a Surgical Jalil Kingsley K56.609 Unsp intestnl [facility] SHIRA Mejia obst, unsp as to partial versus complete obst Z93.3 Colostomy status Office Visit 08/16/2019 11:05a [facility] K56.609 Unsp intestnl Assoc,andreas Cortes D.O. 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 obst, unsp as [...] NP 08/23/2019 K56.609 Unspecified intestinal obstruction, Corrie Vega, HOUSEKEEPING SUPERVISOR unspecified as to partial versus complete obstruction 08/23/2019 E87.1 Hypo-osmolality and hyponatremia Corrie Vega, HOUSEKEEPING SUPERVISOR 08/23/2019 Z93.3 Colostomy status Corrie Vega, HOUSEKEEPING SUPERVISOR 08/23/2019 E83.42 Hypomagnesemia Corrie Vega, HOUSEKEEPING SUPERVISOR 08/19/2019 K56.609 Unspecified intestinal obstruction, Debra Martin [...] complete obstruction 08/17/2019 K56.609 Unspecified intestinal obstruction, Alycia Cochran.OHugo unspecified as to partial versus complete obstruction [...] 11:00 am - Urbano Steven [facility] Clare Olea MDK56.609 Unspecified intestinal obstruction, unspecified as to partial versus complete obstructionNew Medication :Ensure Clear - four times a day as neededFollow up:Please follow-up as needed. Functional Status Description No Information Available Mental Status Description No Information Available Referrals Description No Information Available
--- OUTSIDE RECORDS SUMMARY | 2019-09-13 14:00 | XMS REPORT | Continuity of Care Document ---
:1940 External Reference #:[id number] Author Name Leny Arana MD (transmitted by agent of provider Jeanette Castillo) Address [address] [place] [address] Care Team Providers Name Role Phone Remedios Caal MD - Hematology & Care Team Information Pourer Metal [phone] Oncology Joaquin Stroud MD - Gastroenterology Care Team Information Pourer Metal [phone] Felicia Mccann MD - Internal Care Team Information Pourer Metal Medicine Problems Active Problems Provider Date Carcinoma [...] Change as needed 3Boxes C18.9 Urbano Steven, CASHIER MANAGER 2018 [place] Lock 2 3/4 Change as needed 12Boxes C18.9 Urbano Steven, CASHIER MANAGER 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 Immunizations CPT Code Status Date Vaccine Reaction Lot # [id number] Given 04/13/2019 Influenza Virus Vaccine, Quadrivalent, Split, Preservative Free 33623 Given 04/03/2018 Influenza Virus Vaccine, Quadrivalent, Split, Preservative Free 93699 Given 07/17/2017 Fluzone High Dose 54930 Given 11/05/2016 Pneumococcal Conjugate noimmedate reaction [id number] Vaccine 13 Valent For noted, pt tolerated Intramuscular Use well ... hh Q2039 Given 04/03/2016 Flu Vaccine NOS 29481 Given 03/15/2013 Flu Vaccine Split Virus [id number] Preservative Free For Indiv 3Yr Older 19458 Given 09/26/2008 Pneumonia Vaccine Vital Signs Date [...] Result H/L Range Note Laboratory test 08/28/2019 [facility] Lactic Acid 1.5 mmol/L Normal 0.5-2.0 [address] [place] [address] [phone] CBC Auto Diff 08/28/2019 [facility] White Blood 9.2 10^3/uL Normal 3.5-10.[address] [place] [address] [phone] Red Blood Count 4.62 10^6/uL Normal 4.18-5.48 [...] Cells % 0.1 Comp Metabolic Panel 08/28/2019 [facility] Sodium 133 mmol/L Low 135-[address] [place] [address] [phone] Potassium 4.2 mmol/L Normal 3.5-5.0 Chloride 99 [...] Egfr 95.1 >60 2 Laboratory test 08/28/2019 [facility] Magnesium 1.4 mg/dL Low 1.9-2.7 finding [address] [place] [address] [phone] Lipase < 10 U/L Low 11.0-82.0 C Reactive Protein 11.28 mg/L High <8.01 Comp Metabolic Panel 08/23/2019 [facility] Sodium 131 mmol/L Low 135-145 [address] [place] [address] [phone] Potassium 4.1 mmol/L Normal 3.5-5.0 Chloride 93 [...] Egfr 83.6 >60 3 Laboratory test 08/23/2019 [facility] Magnesium 1.4 mg/dL Low 1.9-2.7 finding [address] [place] [address] [phone] Lipase < 10 U/L Low 11.0-82.0 C Reactive Protein 25.72 mg/L High <8.01 Lactic Acid 1.4 mmol/L Normal 0.5-2.0 4 CBC Auto 08/23/2019 [facility] White Blood 12.8 10^3/uL High 3.5-10.[address] [place] [address] [phone] Red Blood Count 4.55 10^6/uL Normal 4.18-5.48 [...] Cells % 0.0 Comp Metabolic Panel 08/15/2019 [facility] Sodium 130 mmol/L Low 135-145 [address] [place] [address] [phone] Potassium 4.3 mmol/L Normal 3.5-5.0 Chloride 93 [...] Egfr 105.5 >60 5 Laboratory test 08/15/2019 [facility] Lipase 26 U/L Normal 11.0-82.[address] [place] [address] [phone] CBC Auto Diff 08/15/2019 [facility] White Blood 8.4 Normal 3.5 -10.[address] Count 10^3/[place] [address] [phone] Red Blood Count 5.27 10^6/uL Normal 4.18-5.48 [...] Nucleated Red Blood Cells % 0.0 1 [facility] Severe Sepsis and Septic Shock [...] 5 Kidney failure <15 (or dialysis) 4 [facility] Severe Sepsis and Septic Shock [...] dialysis) Procedures Date Code Description Status 05/18/2018 [id number] Colonoscopy Completed 04/25/2013 [id number] Colonoscopy Completed 04/20/2013 [id number] Colonoscopy Completed Medical Devices Description No Information Available Encounters Type Date Location Provider Dx Diagnosis Office Visit 08/31/2019 [facility] Clare Olea MD K56.609 Unsp intestnl 11:30a [facility] obst, unsp as to partial versus complete obst Office Visit 08/26/2019 [facility] Leny Arana MD K56.609 Unsp intestnl 7:00a [facility] obst, unsp as to partial versus complete obst Office Visit 08/26/2019 [facility] K56.609 Unsp intestnl 10:34a Assoc,pc Silvia, CASHIER MANAGER obst, unsp as to Hospitalists partial versus complete obst E87.1 Hypo-osmolality and hyponatremia Z93.3 Colostomy status Office Visit 08/25/2019 7:00a [facility] Jalil Kingsley K56.609 Unsp intestnl [facility] SHIRA Mejia obst, unsp as to partial versus complete obst Office Visit 08/25/2019 10:33a [facility] K56.609 Unsp intestnl Assoc,pc Silvia, CASHIER MANAGER obst, unsp as Hospitalists to partial versus complete obst E87.1 Hypo-osmolality and hyponatremia Z93.3 Colostomy status Office Visit 08/24/2019 7:00a [facility] Leny Arana MD K56.609 Unsp intestnl [facility] obst, unsp as to partial versus complete obst Office Visit 08/24/2019 10:33a [facility] K56.609 Unsp intestnl Assoc,pc [place], CASHIER MANAGER obst, unsp as Hospitalists to partial versus complete obst E87.1 Hypo-osmolality and hyponatremia Office Visit 08/23/2019 7:00a [facility] Leny Arana MD K56.609 Unsp intestnl [facility] obst, unsp as to partial versus complete obst Office Visit 08/23/2019 10:27a [facility] K56.609 Unsp intestnl Assoc,pc Silvia, CASHIER MANAGER obst, unsp as Hospitalists to partial versus complete obst E87.1 Hypo-osmolality and hyponatremia Z93.3 Colostomy status E83.42 Hypomagnesemia Office Visit 08/19/2019 7:00a Surgical Jalil Kingsley K56.609 Unsp intestnl [facility] SHIRA Mejia obst, unsp as to partial versus complete obst Z93.3 Colostomy status Office Visit 08/19/2019 11:06a [facility] Debra Martin, K56.609 Unsp intestnl Assoc,pc Monie obst, unsp as Hospitalists to partial versus complete obst Office Visit 08/18/2019 11:06a [facility] Elmirareena Cortes K56.609 Unsp intestnl Assoc,pc Misti obst, unsp as Hospitalists to partial versus complete obst Z93.3 Colostomy status Office Visit 08/18/2019 7:00a Surgical Pepe Boles K56.609 Unsp intestnl [facility] MD Rafat obst, unsp as to partial versus complete obst Z93.3 Colostomy status Office Visit 08/17/2019 11:05a [facility] [place] K56.609 Unsp intestnl Assoc,pc Misti Cortes obst, unsp as Hospitalists to partial versus complete obst Z93.3 Colostomy status Office Visit 08/17/2019 7:00a Surgical Jalil Kingsley K56.609 Unsp intestnl [facility] SHIRA Mejia obst, unsp as to partial versus complete obst Z93.3 Colostomy status Office Visit 08/16/2019 11:05a [facility] [place] K56.609 Unsp intestnl Assoc,pc Alycia Cortes.O. obst, unsp as Hospitalists to partial versus complete obst Z93.3 Colostomy status Office Visit 08/16/2019 7:00a Surgical Pepe Boles K56.609 Unsp intestnl [facility] MD Rafat obst, unsp as to partial versus complete obst Z93.3 Colostomy status Office Visit 08/15/2019 11:03a [facility] [place] K56.609 Unsp intestnl Assoc,pc Puja CortesO. obst, [...] 08/26/2019 K56.609 Unspecified intestinal obstruction, Corrie Vega, CASHIER MANAGER unspecified as to partial versus complete obstruction 08/26/2019 E87.1 Hypo-osmolality and hyponatremia Corrie Vega, CASHIER MANAGER 08/26/2019 Z93.3 Colostomy status Corrie Silvia, CASHIER MANAGER 08/25/2019 K56.609 Unspecified intestinal obstruction, TERESO Patricia unspecified as to partial versus complete obstruction 08/25/2019 K56.609 Unspecified intestinal obstruction, Corrie Vega, CASHIER MANAGER unspecified as to partial versus complete obstruction 08/25/2019 E87.1 Hypo-osmolality and hyponatremia Corrie Vega, CASHIER MANAGER 08/25/2019 Z93.3 Colostomy status Corrie Vega, CASHIER MANAGER 08/24/2019 K56.609 Unspecified intestinal obstruction, Leny Arana MD unspecified as to partial versus complete obstruction 08/24/2019 K56.609 Unspecified intestinal obstruction, Corrie Vega, CASHIER MANAGER unspecified as to partial versus complete obstruction 08/24/2019 E87.1 Hypo-osmolality and hyponatremia Corrie Silvia, CASHIER MANAGER 08/23/2019 K56.609 Unspecified intestinal obstruction, Leny Arana MD unspecified as to partial versus complete obstruction 08/23/2019 K56.609 Unspecified intestinal obstruction, Corrie Vega, CASHIER MANAGER unspecified as to partial versus complete obstruction 08/23/2019 E87.1 Hypo-osmolality and hyponatremia Corrie Alvarezckney, CASHIER MANAGER 08/23/2019 Z93.3 Colostomy status Corrie [place], CASHIER MANAGER 08/23/2019 E83.42 Hypomagnesemia Corrie Silvia, CASHIER MANAGER 08/19/2019 K56.609 Unspecified intestinal obstruction, Debra Martin [...] complete obstruction 08/15/2019 E87.1 Hypo-osmolality and hyponatremia Puja CochranO. Plan of Treatment Future Appointment(s):11/15/2019 11:00 am - Urbano Steven [facility] Clare Olea MDK56.609 Unspecified intestinal obstruction, unspecified as to partial versus complete obstructionNew Medication :Ensure Clear - four times a day as neededFollow up:Please follow-up as needed. Functional Status Description No Information Available Mental Status Description No Information Available Referrals Description No Information Available
--- OUTSIDE RECORDS SUMMARY | 2019-09-13 14:00 | XMS REPORT | Continuity of Care Document ---
:1940 External Reference #:[id number] Author Name Corrie Vega NP (transmitted by agent of provider Analy Cristina) Address [address] [place] [address] Care Team Providers Name Role Phone Remedios Caal MD - Hematology & Care Team Information Food Operations Manager [phone] Oncology Joaquin Stroud MD - Gastroenterology Care Team Information Food Operations Manager [phone] Felicia Mccann MD - Internal Care Team Information Food Operations Manager [phone] Medicine Problems Active Problems Provider Date Generalized [...] needed 3Boxes C18.9 Urbano Steven NP [address] [place] [address] 2 3/4 Change as needed 12Boxes C18.9 Urbano Steven NP 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 Immunizations CPT Code Status Date Vaccine Reaction Lot # [id number] Given 04/13/2019 Influenza Virus Vaccine, Quadrivalent, Split, Preservative Free 22411 Given 04/03/2018 Influenza Virus Vaccine, Quadrivalent, Split, Preservative Free [id number] Given 07/17/2017 Fluzone High Dose 94032 Given 11/05/2016 Pneumococcal Conjugate noimmedate reaction [id number] Vaccine 13 Valent For noted, pt tolerated Intramuscular Use well ... hh Q2039 Given 04/03/2016 Flu Vaccine NOS 17063 Given 03/15/2013 Flu Vaccine Split Virus [id number] Preservative Free For Indiv 3Yr Older 06971 Given 09/26/2008 Pneumonia Vaccine Vital Signs Date [...] Result H/L Range Note Laboratory test 08/28/2019 [facility] Lactic Acid 1.5 mmol/L Normal 0.5-2.0 [address] [place] [address] [phone] CBC Auto Diff 08/28/2019 [facility] White Blood 9.2 10^3/uL Normal 3.5-10.[address] [place] [address] [phone] Red Blood Count 4.62 10^6/uL Normal 4.18-5.48 [...] Cells % 0.1 Comp Metabolic Panel 08/28/2019 [facility] Sodium 133 mmol/L Low 135-[address] [place] [address] [phone] Potassium 4.2 mmol/L Normal 3.5-5.0 Chloride 99 [...] Egfr 95.1 >60 2 Laboratory test 08/28/2019 [facility] Magnesium 1.4 mg/dL Low 1.9-2.7 finding [address] [place] [address] [phone] Lipase < 10 U/L Low 11.0-82.0 C Reactive Protein 11.28 mg/L High <8.01 Comp Metabolic Panel 08/23/2019 [facility] Sodium 131 mmol/L Low 135-[address] [place] [address] [phone] Potassium 4.1 mmol/L Normal 3.5-5.0 Chloride 93 [...] Egfr 83.6 >60 3 Laboratory test 08/23/2019 [facility] Magnesium 1.4 mg/dL Low 1.9-2.7 finding [address] [place] [address] [phone] Lipase < 10 U/L Low 11.0-82.0 C Reactive Protein 25.72 mg/L High <8.01 Lactic Acid 1.4 mmol/L Normal 0.5-2.0 4 CBC Auto 08/23/2019 [facility] White Blood 12.8 10^3/uL High 3.5-10.[address] [place] [address] [phone] Red Blood Count 4.55 10^6/uL Normal 4.18-5.48 [...] % 0.0 Comp Metabolic Panel 08/15/2019 [facility] Sodium 130 mmol/L Low 135-[address] [place] [address] [phone] Potassium 4.3 mmol/L Normal 3.5-5.0 Chloride 93 [...] Egfr 105.5 >60 5 Laboratory test 08/15/2019 [facility] Lipase 26 U/L Normal 11.0-82.[address] [place], [place] [id number] [phone] CBC Auto Diff 08/15/2019 [facility] White Blood 8.4 Normal 3.5 -10.[address] Count 10^3/[place] [address] [phone] Red Blood Count 5.27 10^6/uL Normal 4.18-5.48 [...] Nucleated Red Blood Cells % 0.0 1 [facility] Severe Sepsis and Septic Shock Management [...] 5 Kidney failure <15 (or dialysis) 4 [facility] Severe Sepsis and Septic Shock Management [...] dialysis) Procedures Date Code Description Status 05/18/2018 [id number] Colonoscopy Completed 04/25/2013 [id number] Colonoscopy Completed 04/20/2013 [id number] Colonoscopy Completed Medical Devices Description No Information Available Encounters Type Date Location Provider Dx Diagnosis Office Visit 08/26/2019 [facility] K56.609 Unsp intestnl 10:34a Assoc,pc Silvia, [employer] obst, unsp as to Hospitalists partial versus complete obst E87.1 Hypo-osmolality and hyponatremia Z93.3 Colostomy status Office Visit 08/25/2019 10:33a [facility] K56.609 Unsp intestnl Assoc,pc Silvia, [employer] obst, unsp as Hospitalists to partial versus complete obst E87.1 Hypo-osmolality and hyponatremia Z93.3 Colostomy status Office Visit 08/24/2019 10:33a [facility] K56.609 Unsp intestnl Assoc,pc Silvia, [employer] obst, unsp as Hospitalists to partial versus complete obst E87.1 Hypo-osmolality and hyponatremia Office Visit 08/23/2019 10:27a [facility] K56.609 Unsp intestnl Assoc,andreas Vega, [employer] obst, unsp as Hospitalists to partial versus complete obst E87.1 Hypo-osmolality and hyponatremia Z93.3 Colostomy status E83.42 Hypomagnesemia Office Visit 08/19/2019 7:00a Surgical Jalil Kingsley K56.609 Unsp intestnl [facility]-C obst, unsp as to partial versus complete obst Z93.3 Colostomy status Office Visit 08/18/2019 11:06a [facility] K56.609 Unsp intestnl Assoc,andreas Cortes D.O. obst, unsp as Hospitalists to partial versus complete obst Z93.3 Colostomy status Office Visit 08/18/2019 7:00a Surgical Pepe Boles K56.609 Unsp intestnl [facility] MD obst, unsp as to partial versus complete obst Z93.3 Colostomy status [facility] K[facility]609 [facility] Assoc,andreas Cortes D.O. obst, unsp as Hospitalists to partial versus complete obst Z93.3 Colostomy status Office Visit 08/17/2019 7:00a Surgical Jalil Kingsley K56.609 Unsp intestnl [facility] obst, unsp as to partial versus complete obst Z93.3 Colostomy status Office Visit 08/16/2019 11:05a [facility] K56.609 [facility],Misti Acuña, unsp as Hospitalists to partial versus complete obst Z93.3 Colostomy status Office Visit 08/16/2019 7:00a Surgical Pepe Boles K56.609 [facility] MD jovita Mishra, unsp as to partial versus complete obst Z93.3 Colostomy status Assessments Date Code Description Provider 08/31/2019 K56.609 Unspecified intestinal obstruction, Clare Olea MD unspecified as to partial versus complete obstruction 08/26/2019 K56.609 Unspecified intestinal obstruction, Corrie Milford, [employer] unspecified as to partial versus complete obstruction 08/26/2019 E87.1 Hypo-osmolality and hyponatremia Corrie Milford, [employer] 08/26/2019 Z93.3 Colostomy status Corrie Silvia, [employer] 08/25/2019 K56.609 Unspecified intestinal obstruction, Corrie Silvia, [employer] unspecified as to partial versus complete obstruction 08/25/2019 E87.1 Hypo-osmolality and hyponatremia Corrie Silvia, [employer] 08/25/2019 Z93.3 Colostomy status Corrie Silvia, [employer] 08/24/2019 K56.609 Unspecified intestinal obstruction, Corrie Milford, [employer] unspecified as to partial versus complete obstruction 08/24/2019 E87.1 Hypo-osmolality and hyponatremia Corrie Milford, [employer] 08/23/2019 K56.609 Unspecified intestinal obstruction, Corrie Silvia, [employer] unspecified as to partial versus complete obstruction 08/23/2019 E87.1 Hypo-osmolality and hyponatremia Corrie Silvia, [employer] 08/23/2019 Z93.3 Colostomy status Corrie Milford, [employer] 08/23/2019 E83.42 Hypomagnesemia Corrie Silvia, [employer] 08/19/2019 K56.609 Unspecified intestinal obstruction, TERESO Patricia [...] 11:00 am - Urbano Steven [facility] - Clare Olea MDK56.609 Unspecified intestinal obstruction, unspecified as to partial versus complete obstructionNew Medication :Ensure Clear - four times a day as neededFollow up:Please follow-up as needed. Functional Status Description No Information Available Mental Status Description No Information Available Referrals Description No Information Available
[2019-09-13] MEDS ORDERED: NS 0.9% 1000 ML** 1,000 ML IV ONE ×2 (14:03→15:28)
--- NOTE | 2019-09-13 14:20 | ED ---
Abdominal Pain/Male - HPI Summary HPI Summary: Patient is a 78 y/o M presenting to the ED for a chief complaint of abdominal pain, nausea, and vomiting. Patient states that he recently had a bowel obstruction surgery after being admitted from 08/15/19 to 08/19/19 and again from 08/19 to 08/24/19. He states that after discharge, he was asymptomatic until the night of 09/12/19 when he had fish for dinner. He spoke to Dr. Leny Arana who recommended the patient be seen at [facility] for an abdominal CT. Last bowel movement was at 09:00 on 09/13/19, but patient states his colostomy bag has filled with a few mLs since that bowel movement. Patient denies fever, chest pain, or shortness of breath. No aggravating or alleviating factors are reported. PMHx is significant for colon cancer in 1994, in remission. - History of Current Complaint Chief Complaint: EDAbdPain Stated Complaint: POSS SBO PER PT Time Seen by Provider: 09/13/19 14:01 Hx Obtained From: Patient Onset/Duration: Sudden Onset, Lasting Hours, Still Present Timing: Constant Severity Initially: Mild Severity Currently: Mild Pain Intensity: 2 Pain Scale Used: 0-10 Numeric Location: Diffuse Radiates: No Aggravating Factor(s): Nothing Alleviating Factor(s): Nothing Associated Signs And Symptoms: Positive: Nausea, Vomiting. Negative: Fever, Chest Pain - Allergies/Home Medications Allergies/Adverse Reactions: Allergies Allergy/AdvReac Type Severity Reaction Status Date / Time No Known Allergies Allergy Verified 09/13/19 13:59 Home Medications: Home Medications Ondansetron ODT TAB* [Zofran 4 MG Odt TAB*] 4 mg PO Q6H PRN #20 tab.odt [Rx Confirmed 09/13/19] PMH/Surg Hx/FS Hx/Imm Hx Previously Healthy: Yes Endocrine/Hematology History: Denies: Hx Diabetes Cardiovascular History: Denies: Hx Hypertension GI History: Reports: Hx Obstructive Bowel, Other GI Disorders - SBO 08/2019. colorectal cancer History: Reports: Other Problems/Disorders - Bladder removal/urostomy Denies: Hx Renal Disease Musculoskeletal History: Reports: Hx Arthritis - bilat hands Sensory History: Reports: Hx Contacts or Glasses - Did not bring, Hx Hearing Problem Denies: Hx Legally Blind, Hx Deafness, Hx Hearing Aid Opthamlomology History: Reports: Hx Contacts or Glasses - Did not bring Denies: Hx Legally Blind EENT History: Denies: Hx Deafness - Cancer History Cancer Type, Location and Year: colorectal cancer, 1994 - Surgical History Surgical History: Yes Surgery Procedure, Year, and Place: colectomy for colon/rectal ca 1994. colostomy bag. Cystectomy, urostomy bag. Prostatectomy. Appendectomy. Small bowel obstruction surgery, 08/2019, [facility] Hx Anesthesia Reactions: No - Immunization History Date of Influenza Vaccine: 02/2019 Infectious Disease History: No Infectious Disease History: Denies: History Other Infectious Disease, Traveled Outside the [place] in Last 30 Days - Family History Known Family History: Positive: Other - cancer Negative: Hypertension, Diabetes - Social History Occupation: Retired Lives: With Family Alcohol Use: None Hx Substance Use: No Substance Use Type: Reports: None Hx Tobacco Use: Yes Smoking Status (MU): Light Every Day Tobacco Smoker Review of Systems Negative: Fever Negative: Chest Pain Negative: Shortness Of Breath Positive: Abdominal Pain, Vomiting, Nausea All Other Systems Reviewed And Are Negative: Yes Physical Exam - Summary Physical Exam Summary: Constitutional: Well-developed, Well-nourished, Alert. (-) Distressed Skin: Warm, Dry HENT: Normocephalic; Atraumatic Eyes: Conjunctiva normal Neck: Musculoskeletal ROM normal neck. (-) JVD, (-) Stridor, (-) Tracheal deviation Cardio: Rhythm regular, rate normal, Heart sounds normal; Intact distal pulses; The pedal pulses are 2+ and symmetric. Radial pulses are 2+ and symmetric. (-) Murmur Pulmonary/Chest wall: Effort normal. (-) Respiratory distress, (-) Wheezes, (-) Rales Abd: Soft, (-) tenderness, (-) Guarding, (-) Rebound. Abdomen is slightly distended, colostomy in the left lower abdomen, olostomy in right lower abdomen , no abdominal wall erythema. Musculoskeletal: (-) Edema Lymph: (-) Cervical adenopathy Neuro: Alert, Oriented x3 Psych: Mood and affect Normal Triage Information Reviewed: Yes Vital Signs On Initial Exam: Initial Vitals Temp Pulse Resp BP Pulse Ox 97.9 F 92 18 101/69 92 09/13/19 13:55 09/13/19 13:55 09/13/19 13:55 09/13/19 13:55 09/13/19 13:55 Vital Signs Reviewed: Yes Procedures - Sedation Patient Received Moderate/Deep Sedation with Procedure: No Diagnostics - Vital Signs Vital Signs Temp Pulse Resp BP Pulse Ox 09/13/19 13:55 97.9 F 92 18 101/69 92 - Laboratory Result Diagrams: 09/13/19 14:36 09/13/19 14:36 Lab Statement: Any lab studies that have been ordered have been reviewed, and results considered in the medical decision making process. - CT Abdomen/Pelvis CT Summary of CT Findings: Abdomen/Pelvis CT is performed but pending official radiology report. Abdominal Pain Male Course/Dx - Course Course Of Treatment: Patient is a 78 y/o M presenting to the ED for a chief complaint of abdominal pain, nausea, and vomiting. Patient states that he recently had a bowel obstruction surgery after being admitted from 08/15/19 to 08/19/19 and again from 08/19 to 08/24/19. He states that after discharge, he was asymptomatic until the night of 09/12/19 when he had fish for dinner. Last bowel movement was at 09:00 on 09/13/19, but patient states his colostomy bag has filled with a few mLs since that bowel movement. Patient denies fever, chest pain, or shortness of breath. PMHx is significant for colon cancer in 1994 , in remission. On exam, abdomen is slightly distended, colostomy in the left lower abdomen, orostomy in right lower abdomen, no abdominal wall erythema. In the ED course, patient was given magnesium sulfate 1 gm IV, Zofran 4 mg IV, iodixanol 68 ml IV, and IV fluids. All other abnormal lab results are not pertinent to current cc. Abdomen/Pelvis CT is performed but pending official radiology report. At 18:09, Dr. Pepe Douglass reviewed the patients case and states patient requires transfer to another facility. At 18:34, Dr. Grayson Figueroa at [facility] reviewed the patients case and agrees to accept the patient as a transfer to their facility for a diagnosis of small bowel obstruction. Patient will be transferred to [facility] for a diagnosis of small bowel obstruction. Patient requires transfer for a higher level of care not available at [facility]. - Diagnoses Provider Diagnoses: Small bowel obstruction - Provider Notifications Discussed Care Of Patient With: Pepe Douglass - At 18:09, Dr. Pepe Douglass reviewed the patients case and states patient requires transfer to another facility. At 18:23, Margarita Douglas will call back. At 18:34, Dr. Grayson Figueroa at [facility] reviewed the patients case and agrees to accept the patient as a transfer to their facility for a diagnosis of small bowel obstruction. Time Discussed With Above Provider: 18:09 Instructed by Provider To: Transfer Reason For Transfer: Patient not appropriate for [facility]., Specialist unable to manage this patient. Discharge ED - Sign-Out/Discharge Documenting (check all that apply): Patient Departure - Transfer - Discharge Plan Condition: Stable Disposition: TRANS HIGHER LVL OF CARE FAC Referrals: Felicia Mccann MD [Primary Care Provider] - - Billing Disposition and Condition Condition: STABLE Disposition: Trans Higher Lvl of Care Fac - Attestation Statements Document Initiated by Scribe: Yes Documenting Scribe: Jessica Booth Provider For Whom Scribe is Documenting (Include Credential): Hank Prabhakar DO Scribe Attestation: IJessica scribed for Hank Prabhakar DO on 09/13/19 at 1906. Scribe Documentation Reviewed: Yes Provider Attestation: The documentation as recorded by the scribeJessica accurately reflects the service I personally performed and the decisions made by me, Hank Prabhakar DO Status of Scribe Document: Viewed
[2019-09-13] MEDS ORDERED: Ondansetron INJ* 2 MG/ML VIAL IV ONE ×2 (14:35→19:33)
[2019-09-13 14:55] LABS: ABS Lymphocytes 0.3 10^3/ul (1.0-4.8); ABS Monocytes 0.2 10^3/ul (0-0.8); ABS Neutrophils 5.1 10^3/ul (1.5-7.7); Hematocrit 44 % (42-52); Hemoglobin 15.7 g/dL (14.0-18.0); Lymphocyte % 4.9 %; Mean Corpuscular HGB Conc 35 g/dL (31-36); Mean Corpuscular Hemoglobin 30 pg (27-31); Mean Corpuscular Volume 86 fL (80-94); Mean Platelet Volume 6.8 fL (7.4-10.4); Platelet Count 483 10^3/uL (150-450); Red Blood Count 5.16 10^6 /uL (4.18-5.48); Red Cell Distribution Width 13 % (10-15); White Blood Count 5.6 10^3/uL (3.5-10.8)
[2019-09-13 15:12] LABS: Albumin 4.1 g/dL (3.2-5.2); Albumin/Globulin Ratio 1.2 (1-3); BUN/Creatinine Ratio 13.9 (8-20); Calcium 9.1 mg/dL (8.6-10.3); EGFR African American 49.1 (>60); EGFR Non-African American 40.5 (>60); Globulin 3.3 g/dL (2-4); Potassium 4.3 mmol/L (3.5-5.0); Total Bilirubin 0.9 mg/dL (0.2-1.0); Total Protein 7.4 g/dL (6.4-8.9)
[2019-09-13] MEDS ORDERED: Iodixanol* (CONTRAST) 320 MG/ML 100 ML SDV IV ONE (15:32)
[2019-09-13 15:34] LABS: Magnesium 1.3 mg/dL (1.9-2.7)
[2019-09-13] MEDS ORDERED: Magnesium Sulfate 1 GM IV* 1 GM/100 ML BAG IV ONE (16:09)
--- NOTE | 2019-09-13 19:37 | CONS ---
CONSULTATION REPORT: DATE OF CONSULT: 09/13/19 - EMERGENCY DEPT REFERRING PROVIDER: Dr. Hank Prabhakar, emergency room physician. REASON FOR CONSULTATION: Small bowel obstruction with abdominal pain. HISTORY OF PRESENT ILLNESS: Mr. Duc James is a 78-year-old gentleman who was known to the surgical and medical services here at [facility], who has a history of stage IV colorectal cancer almost a little over 20 years ago and underwent an exploratory laparotomy with a sigmoid and proctocolectomy with end colostomy, a cystectomy/prostatectomy and a small bowel ileal conduit by the urology service at that time. He had received both preoperative chemotherapy and radiation therapy and received chemotherapy postoperatively. Over the last 20 years or so, he has been doing remarkable well; however, was admitted to the [facility] about a month ago with nausea and vomiting, abdominal distention and a CT scan which showed findings worrisome for a small bowel obstruction. Fortunately, this resolved with nasogastric tube decompression and nonoperative management and he was discharged home. Several weeks ago, he returned with similar symptoms and had a nasogastric tube placed and spent several days in the hospital, but fortunately his symptoms resolved and he improved and he was discharged home on full liquids. Instructions at that time for him to stay on liquids for several weeks; however , yesterday, he developed some abdominal distention with some vomiting and firmness with intermittent crampy abdominal discomfort. He presented to the emergency room this afternoon. In the emergency room, he was noted to have a normal white blood cell count with no anemia. Electrolytes were somewhat deranged with a sodium of 123 with a BUN and creatinine of 23 and 1.65. His liver function tests and protein were all within normal limits. He underwent a repeat CT scan of the abdomen and pelvis with oral and IV contrast. This shows a markedly distended stomach with small bowel distention. There are findings consistent with a small bowel obstruction of the distal colon. The colon appeared to be somewhat collapsed. There is no free intraabdominal fluid or air. Surgical consultation was obtained. PAST MEDICAL HISTORY: Colorectal cancer. PAST SURGICAL HISTORY: 1. Exploratory laparotomy with colectomy/cystectomy with ileal conduit, appendectomy and prostatectomy. 2. Bilateral inguinal hernia repairs. MEDICATIONS: Medicines at home are none. ALLERGIES: He has no known drug allergies. FAMILY HISTORY: His mother had breast cancer and lymphoma. His father had prostate cancer. SOCIAL HISTORY: He lives with his at home. He is retired. He does not use tobacco, alcohol, or recreational drugs. REVIEW OF SYSTEMS: A 10-point review of systems was otherwise obtained. Pertinent positives and negatives are as per above. Cerebrovascular: He had no chest pain or shortness of breath. Pulmonary: No wheezing or hemoptysis. Cerebrovascular: No dizziness or visual disturbances. PHYSICAL EXAM: He is afebrile, temperature 97.9, pulse 94, blood pressure 144/ 86. In general, he is a slender male, appears to be in no apparent distress. He is quite alert, conversive and very pleasant. Oral mucosa was slightly dry. Sclerae are anicteric. Lungs were clear to auscultation with normal respiratory effort. Heart was regular rate and rhythm without murmurs, rubs, or gallops. His abdomen is firm and slightly distended. He has a well-healed midline incision. He has a colostomy in the left mid abdominal wall with some soft cris colored stool in the bag. He has an urostomy in the right lower quadrant which is draining clear liquid. I appreciate no incisional hernias. He had diminished bowel sounds throughout. He has no peritoneal irritation, incisional hernia, or peritoneal irritation. IMPRESSION AND PLAN: Recurrent small bowel obstruction in a patient with a complicated surgical history including colectomy with cystectomy and ileal conduit formation. This is his third admission over the past month here at [facility] for similar symptoms and a repeat CT scan tonight shows findings consistent with a small bowel obstruction. At this point, he may require a surgical intervention as nonoperative management is failed here over the last 3 to 4 weeks. I discussed his care with Dr. Kenney from Urology to determine the anatomy of the ureters and the ileal conduit. It is not possible to place ureteral stents in this case for intraoperative management. At this point, we do not have Urology services for help with an exploratory laparotomy and I feel that attempting a laparotomy in a complex patient without urological assistance in the case of the injury to ureters or indeed identification of the ureters that he should be transferred to a higher level of care for appropriate management. I discussed this with him and he understands and is willing to proceed. I also discussed this with Dr. Prabhakar from the emergency room and we will attempt to make appropriate arrangements for transfer this evening. [id number] #: [id number] MTDD
[2019-09-13 19:56] VITALS: BP 108/64
== END 2019-09-13 19:55 | disposition short-term general hospital (02) ==
LOC: ED 13:54
DX: K56.609 Unspecified intestinal obstruction, unspecified as to partial versus complete obstruction (principal); R10.9 Unspecified abdominal pain; R11.2 Nausea with vomiting, unspecified; F17.210 Nicotine dependence, cigarettes, uncomplicated
CPT/HCPCS: 36415; 74177; 80053; 83735; 85025; 99284; J2405; J3475; Q9967